=== PATIENT | female | born 1940 | race Caucasian/White ===

== ENCOUNTER 2017-04-17 21:21 | Inpatient (IN) ==
[2017-04-17] MEDS ORDERED: ASPIRIN 325 MG TABLET PO STA (22:02)
[2017-04-17] MEDS ORDERED: ONDANSETRON 4 MG/2 ML VIAL IV STA (22:02)
[2017-04-17] MEDS ORDERED: FUROSEMIDE 100 MG/10 ML VIAL IV STA (22:02)
[2017-04-17] MEDS ORDERED: methylPREDNISolone SOD SUC 125 MG/2 ML VIAL IV STA (22:02)
[2017-04-17] MEDS ORDERED: MORPHINE 2 MG/1 ML SYRINGE IV STA (22:02)
[2017-04-17] MEDS ORDERED: DILTIAZEM 50 MG/10 ML VIAL IV STA (22:02)
[2017-04-17] MEDS ORDERED: ALBUTEROL/IPRATROPIUM 3 ML NEB RESP TX STA (22:02)
--- NOTE | 2017-04-17 22:09 | Emergency Department Note ---
Ute Hunter Emily, am scribing for, and in the presence of, Jose Storey MD 22: 07. Raleigh Hunter Charles R, MD, personally performed the services described in this documentation, ascribed by Bárbara Unger in my presence, and it is both accurate and complete . Arrival - Arrival Chief Complaint: Shortness of Breath Stated Complaint: lightness in chest/bp/fast heart rate ED Nursing Triage Note: patient states she did not rest last night for having a feeling of fullness, shortness of breath and that her bp has been elevated. bp at triage 101/67 and has felt like her heart was running away. heart rate in triage 101, o2 sat 94% on ra Mode of Arrival: Ambulatory Limitations: No Limitations Source: Patient - History of Present Illness HPI Narrative: Pt is a 76 y/o female who came to ED with c/o LEDEZMA, SOB, and rapid heart palpitations with intermittent "funny feeling" that started yesterday. Pt is notes last night she couldn't sleep at all due to orthopnea and had to use several pillows to prop her up, along with use of inhaler that gave no relief. Pt is taking Coumadin for hx of blood clots; one in chest and other in leg. Pt saw Dr. Enamorado 3 weeks ago for Afib. Pt denies smoking and chest pain. Pt does use cane. Onset (ago): day(s) Consistency: constant, intermittent Severity: moderate Severity scale (1-10): 5 Quality: other (racing) Allergies/Adverse Reactions: Allergies Allergy/AdvReac Type Severity Reaction Status Date / Time No Known Allergies Allergy Verified 05/11/16 15:35 Home Medications: Home Medications Medication Instructions Recorded Confirmed Type Labetalol Tab [Trandate Tab] 200 mg PO BID 12/07/14 04/17/17 History Levothyroxine Tab [Synthroid Tab] 125 mcg PO DAILY@0700 12/07/14 04/17/17 History Lisinopril 20 mg PO DAILY 12/07/14 04/17/17 History Venlafaxine Xr [Effexor Xr] 37.5 tablet PO DAILY W/BREAKFAST 12/07/14 04/17/17 History Furosemide Tab [Lasix Tab] 40 mg PO DAILY 06/13/16 04/17/17 History HYDROcodone/ACETAMIN 10-325 [[place] 1 tablet PO Q6H PRN 06/13/16 04/17/17 History 10-325] Leflunomide [Arava] 20 mg PO BEDTIME 06/13/16 04/17/17 History Warfarin [Coumadin] 4 mg PO DAILY@1800 06/13/16 04/17/17 History Gabapentin [Neurontin] 800 mg PO TID 10/28/16 04/17/17 History Cholecalciferol [Vitamin D3] 400 unit PO DAILY tablet 11/02/16 04/17/17 Rx Fluticasone/Salmeterol 250-50 1 puff INH BID #1 11/02/16 04/17/17 Rx [Advair 250-50] Multivitamin (Ocuvite) [Ocuvite] 1 tablet PO BID #30 tablet 11/02/16 04/17/17 Rx Calcium Carbonate/Vitamin D3 1 each PO DAILY 01/06/17 04/17/17 History [Calcium 600-Vit D3 400 Tablet] Vit C/Vit E AC/Lut/Copper/Zinc 1 each PO DAILY 01/06/17 04/17/17 History [Preservision Lutein Softgel] Dicyclomine HCl 10 mg PO QID 04/17/17 04/17/17 History Omeprazole [Prilosec] 20 mg PO DAILY 04/17/17 04/17/17 History predniSONE [Prednisone] 5 mg PO DAILY 04/17/17 04/17/17 History Review of System - Review of System 12 point system: reviewed and no additional remarkable complaints except as stated - Review of System Constitutional: Absent: diaphoresis, fever, weakness Respiratory: Present: respiratory distress. Absent: cough Cardiovascular: Present: palpitations, dyspnea on exertion, orthopnea. Absent: chest pain, syncope Gastrointestinal: Absent: abdominal pain, nausea, vomiting Musculoskeletal: Absent: arm pain, back pain Skin: Absent: rash Neurological: Absent: headache, confusion Medical,Surgical,& Family Hx - Medical History Cardio: History of: Hypertension Psychological: History of: Depression Neurology: No history of: Seizures HEENT: History of: HEENT Problems (TMJ) Endocrine: History of: Thyroid Disorder Rheumatology: History of;: Fibromyalgia, Rheumatoid Arthritis Comment Only: Rheumatological Problems (rls) Respiratory: History of: COPD, Obstructive Sleep Apnea (does not use cpap), Pulmonary Embolism Gastrointestinal: History of: Diverticulitis/ Diverticulosis, GERD, Hemorrhoids , Polyps, GI Problems (dysphagia) Musculoskeletal: History of: Back/Neck Problems (spinal stenosis, bulging disk, back surgury-ruptured disk) Hematology: History of: Clotting Problems No history of: Blood Transfusion Reaction - Surgical History Cardiac Surgeries: Sugical HX of: Cardiac Catheterization HEENT Surgeries: Surgical HX of: Eye Surgery (CATARACTS), Thyroid Surgery, Tonsilectomy & Adenoidectomy Abdominal Surgeries: Surgical HX of: Appendectomy, Cholecystectomy, Colonoscopy , EGD Reproductive Surgeries: Surgical HX of;: Section (x3), Hysterectomy Orthopedic Surgeries: Surgical HX of;: Spinal Surgery (ruptured disk), Total Knee Replacement (bilat) - Family History Family History: Reports;: Family Diabetes, Family Heart Disease, Family Hypertension Denies;: Family Cancer - Social History Smoking Status: Never smoker Frequency of Alcohol Use: None Type of Drug Use: None Marital Status: Lives With:: Spouse Functional capacity: uses cane/walker Exam Vital Signs: Vital Signs Temperature 97.0 F L 04/17/17 21:30 Pulse Rate 93 H 04/17/17 22:31 Respiratory Rate 22 04/17/17 22:31 Blood Pressure 101/67 04/17/17 21:30 O2 Sat by Pulse Oximetry 98 04/17/17 22:31 - General General appearance: alert, anxious (mildly) - Head Head exam: Present: atraumatic, normocephalic - Eye Eye exam: Present: PERRL, EOMI - ENT ENT exam: Present: mucous membranes moist. Absent: mucous membranes dry - Neck Neck exam: Present: full ROM, other (JVD distention). Absent: tenderness - Chest Chest inspection: Present: symmetric chest wall rise. Absent: tenderness - Respiratory Respiratory exam: Present: rales (at bases), wheezes (expiratory in upper). Absent: accessory muscle use, respiratory distress - Cardiovascular Cardiovascular exam: Present: tachycardia, irregular rhythm - Abdominal Exam Abdominal exam: Present: soft, distention (mildly bloated). Absent: tenderness - Extremities Exam Extremities exam: Present: full ROM, pedal edema (+1). Absent: tenderness - Neurological Exam Neurological exam: Present: alert, oriented X3, CN II-XII intact. Absent: motor sensory deficit - Psychiatric Psychiatric exam: Present: normal affect - Skin Skin exam: Present: warm, dry Course - Reevaluation(s) Reevaluation #1: Patient feels much better after we converted over to normal sinus rhythm. Problem is she did not tell she took clonidine lisinopril and Lasix prior to arrival we gave her medications here which caused her blood pressure to bottom out. She did convert over to normal sinus rhythm successfully or shortness of breath is better she is given some gentle fluid hydration to bring her pressure up but will put her in the hospital overnight observation for blood pressure being so low systolically is less than 100 still after fluid hydration. Time: 23:28 - Consultations Consultation #1: Hospitalist will admit patient Time: 23:29 Results - Labs CBC & BMP: 04/17/17 22:14 04/17/17 22:14 Lab Results: I have reviewed the patients labs Labs: Laboratory Tests 04/17/17 04/17/17 04/17/17 22:02 22:14 22:14 WBC 12.7 H RBC 5.34 Hgb 15.1 Hct 45.7 MCV 85.6 L Plt Count 281 MPV 12.4 H Lymph % (Auto) 20.4 L [place] % (Auto) 13.0 H Neut # (Auto) 8.1 H [place] # (Auto) 1.6 H INR 1.7 PT Patient/Control Mix 18.0 D Urine Color Straw Urine Appearance Clear Urine pH 5.0 Ur Specific [place] 1.006 Urine Blood Negative Urine Nitrate Negative Urine Urobilinogen < 2.0 H Ur Squamous Epith Cells Occasional Hyaline Casts 12 Urine Mucus Occasional Laboratory Tests 04/17/17 22:14 BUN 31 H Creatinine 1.10 H BUN/Creatinine Ratio 28.00 H Troponin I 0.048 H Disposition Clinical Impression: Asthma, Hypotension, Atrial fibrillation with RVR, Paroxysmal atrial fibrillation with rapid ventricular response, Congestive heart failure, History of pulmonary embolus (PE), Chronic anticoagulation, Subtherapeutic anticoagulation Case discussed with: patient, patient's family Disposition: Still a Patient Condition: Stable Time of Disposition: 23:29
--- NOTE | 2017-04-17 22:13 | EKG Report ---
Stationary ECG Study [facility] ER Test Date: 04/17/2017 9:38:51 PM Pat Name: RASHAD COY Department: Room: Gender: F Medicare Contact Specialist: Aleena : 1940 Requested by: Jose Apple Order Number: [id number] Reading MD: EDWARD COTTER Intervals [place] Rate: 116 P: 999 AL: 0 QRS: 2 QRSD: 85 T: 41 QT: 325 QTc: 394 Interpretive Statements ATRIAL FIBRILLATION WITH RAPID VENTRICULAR RESPONSE Electronically Signed On 04-18-17 06:16:29 CDT by EDWARD COTTER [email or web address]
[2017-04-17 22:20] LABS: Apearance,Urine CLEAR (Clear); Bilirubin,Urine Negative (Negative); Blood, Urine Negative (Negative); Glucose,Urine (UA) Negative (Negative); Hyaline Casts,Urine 12 /LPF (0-3); Ketones,Urine Negative (Negative); Mucus,Urine Occasional /LPF (Occasional); Nitrite,Urine Negative (Negative); Protein,Urine Negative; Squamous Epithelial Cell,Urine Occasional /HPF (0-10); Urine Color Straw (Yellow); Urine Specific Gravity 1.006 (1.001-1.035); Urine Urobilinogen < 2.0 EU/DL (0.2-1.0)
[2017-04-17 22:22] LABS: Basophils # 0.1 10*3/uL (0.0-0.2); Basophils % 0.6 % (0.0-0.8); Eosinophils # 0.2 10*3/uL (0.0-0.87); Eosinophils % 1.7 % (0.00-10.9); Hematocrit 45.7 VOL% (35.7-47.0); Hemoglobin 15.1 GM/DL (12.0-16.0); Immature Granulocytes % 0.6 %; Immature Granulocytes Absolute 0.08 #; Lymphocytes # 2.6 10*3/uL (1.4-4.0); Lymphocytes % 20.4 % (21.3-54.2); Mean Corpuscular Hemoglobin 28 PG (27-34); Mean Corpuscular Volume 85.6 FL (87-102); Mean Platelet Volume 12.4 FL (9.6-12.0); Monocytes # 1.6 10*3/uL (0.11-0.8); Neutrophils # 8.1 10*3/uL (1.4-7.4); Neutrophils % 63.7 % (38.7-73.9); Platelet Count 281 T/CUMM (130-400); Red Blood Count 5.34 MC/CUMM (3.8-5.5); Red Cell Distribution Width 16.9 % (9.3-17.3); White Blood Count 12.7 T/CUMM (4-12)
[2017-04-17] MEDS ORDERED: MORPHINE 2 MG/1 ML SYRINGE ONE (22:26)
[2017-04-17] MEDS ORDERED: FUROSEMIDE 40 MG/4 ML VIAL ONE (22:26)
[2017-04-17] MEDS ORDERED: ONDANSETRON 4 MG/2 ML VIAL ONE (22:26)
[2017-04-17] MEDS ORDERED: FUROSEMIDE 20 MG/2 ML VIAL ONE (22:27)
[2017-04-17] MEDS ORDERED: ASPIRIN 325 MG TABLET ONE (22:27)
[2017-04-17] MEDS ORDERED: DILTIAZEM 50 MG/10 ML VIAL IV ONE (22:27)
[2017-04-17] MEDS ORDERED: methylPREDNISolone SOD SUC 125 MG/2 ML VIAL ONE (22:27)
[2017-04-17 22:31] LABS: INR 1.7
[2017-04-17 22:44] LABS: Alanine Aminotransferase 29 U/L (13-56); Albumin 3.7 G/DL (3.4-5.0); Alkaline Phosphatase 98 U/L (45-117); Aspartate Amino Transferase 19 U/L (0-37); Bilirubin,Total < 0.39 MG/DL (0.2-1.0); Blood Urea Nitrogen 31 MG/DL (7-18); Calcium 8.5 MG/DL (8.5-10.1); Glucose 100 MG/DL (74-106); Magnesium 2.2 MG/DL (1.8-2.4); Osmolality,Calculated 289.1 MOS/KG (273-304); Potassium 3.9 MMOL/L (3.5-5.1); Sodium 142 MMOL/L (136-145); Total Protein 6.9 G/DL (6.4-8.3)
[2017-04-17 22:45] LABS: Troponin I Only 0.048 NG/ML (0.00-0.045)
[2017-04-17] MEDS ORDERED: LACTATED RINGERS 500 ML IV ONE (23:12)
[2017-04-17] MEDS ORDERED: ENOXAPARIN 100 MG/ML SYRINGE SUBCUT STA (23:16)
[2017-04-17] MEDS ORDERED: ONDANSETRON 4 MG/2 ML VIAL IV PRN (23:27)
[2017-04-17] MEDS ORDERED: ACETAMINOPHEN 325 MG TABLET PO PRN (23:27)
[2017-04-17] MEDS ORDERED: ZALEPLON 5 MG CAPSULE PO PRN (23:27)
[2017-04-17] MEDS ORDERED: WARFARIN 1 MG TABLET PO ONE (23:31)
--- NOTE | 2017-04-17 23:58 | Hospitalist History & Physical ---
Assessment and Plan (1) Acute pulmonary edema Status: Acute Assessment and plan: Treated with IV Lasix. She has improved after treatment in the emergency department. We will continue oral Lasix this was likely secondary to her A. fib with RVR. Current Visit: Yes (2) Hypotension Status: Acute Assessment and plan: Combination of Lasix and Cardizem as well as home blood pressure medications. She is receiving gentle hydration in the emergency department. Blood pressure has improved. Current Visit: Yes Qualifiers: Hypotension type: hypotension due to drug Qualified Code(s): I95.2 - Hypotension due to drugs (3) Atrial fibrillation with RVR Status: Acute Assessment and plan: Thought to be paroxysmal in nature. Patient is anticoagulated secondary to history of DVT and PE. INR subtherapeutic at 1.7. Will bridge with Lovenox and increase Coumadin. Currently rate controlled and converted to sinus after Cardizem infusion. Current Visit: Yes (4) Chronic anticoagulation Status: Acute Assessment and plan: On Coumadin. Subtherapeutic INR 1.7. Patient had stopped Coumadin for spine injection by Dr. Young. This was completed over 2 weeks ago. Will give an additional 2 mg of Coumadin tonight and bridge with Lovenox. Current Visit: Yes (5) Subtherapeutic anticoagulation Status: Acute Current Visit: Yes History of Present Illness Chief complaint: Shortness of breath and palpitations History of present illness: Ms. Zamarripa is a 76 year old female presented to ED with c/o LEDEZMA, SOB, and rapid heart palpitations with intermittent "funny feeling" that started yesterday. She reports that last night she couldn't sleep at all due to orthopnea and had to use several pillows to prop her up, along with use of inhaler that gave no relief. The patient is taking Coumadin for hx of blood clots; one in chest and other in leg. Pt saw Dr. Enamorado 3 weeks ago for Afib. She has paroxysmal atrial fibrillation that appears to have gone into rapid ventricular response yesterday causing her significant shortness of breath and acute congestive heart failure. She was treated in the emergency department with Lasix and Cardizem has converted to sinus rhythm. She had a drop her blood pressure after conversion and with diuresis. She feels much better at the time of my evaluation and is no longer short of breath. Home Medications Medication Instructions Recorded Confirmed Type Labetalol Tab [Trandate Tab] 200 mg PO BID 12/07/14 04/17/17 History Levothyroxine Tab [Synthroid Tab] 125 mcg PO DAILY@0700 12/07/14 04/17/17 History Lisinopril 20 mg PO DAILY 12/07/14 04/17/17 History Venlafaxine Xr [Effexor Xr] 37.5 tablet PO DAILY W/BREAKFAST 12/07/14 04/17/17 History Furosemide Tab [Lasix Tab] 40 mg PO DAILY 06/13/16 04/17/17 History HYDROcodone/ACETAMIN 10-325 [[place] 1 tablet PO Q6H PRN 06/13/16 04/17/17 History 10-325] Leflunomide [Arava] 20 mg PO BEDTIME 06/13/16 04/17/17 History Warfarin [Coumadin] 4 mg PO DAILY@1800 06/13/16 04/17/17 History Gabapentin [Neurontin] 800 mg PO TID 10/28/16 04/17/17 History Cholecalciferol [Vitamin D3] 400 unit PO DAILY tablet 11/02/16 04/17/17 Rx Fluticasone/Salmeterol 250-50 1 puff INH BID #1 11/02/16 04/17/17 Rx [Advair 250-50] Multivitamin (Ocuvite) [Ocuvite] 1 tablet PO BID #30 tablet 11/02/16 04/17/17 Rx Calcium Carbonate/Vitamin D3 1 each PO DAILY 01/06/17 04/17/17 History [Calcium 600-Vit D3 400 Tablet] Vit C/Vit E AC/Lut/Copper/Zinc 1 each PO DAILY 01/06/17 04/17/17 History [Preservision Lutein Softgel] Dicyclomine HCl 10 mg PO QID 04/17/17 04/17/17 History Omeprazole [Prilosec] 20 mg PO DAILY 04/17/17 04/17/17 History predniSONE [Prednisone] 5 mg PO DAILY 04/17/17 04/17/17 History Allergies Allergy/AdvReac Type Severity Reaction Status Date / Time No Known Allergies Allergy Verified 05/11/16 15:35 Medical,Surgical,& Family Hx - Medical History Cardio: History of: Hypertension Psychological: History of: Depression Neurology: No history of: Seizures HEENT: History of: HEENT Problems (TMJ) Endocrine: History of: Thyroid Disorder Rheumatology: History of;: Fibromyalgia, Rheumatoid Arthritis Comment Only: Rheumatological Problems (rls) Respiratory: History of: COPD, Obstructive Sleep Apnea (does not use cpap), Pulmonary Embolism Gastrointestinal: History of: Diverticulitis/ Diverticulosis, GERD, Hemorrhoids , Polyps, GI Problems (dysphagia) Musculoskeletal: History of: Back/Neck Problems (spinal stenosis, bulging disk, back surgury-ruptured disk) Hematology: History of: Clotting Problems No history of: Blood Transfusion Reaction - Surgical History Cardiac Surgeries: Sugical HX of: Cardiac Catheterization HEENT Surgeries: Surgical HX of: Eye Surgery (CATARACTS), Thyroid Surgery, Tonsilectomy & Adenoidectomy Abdominal Surgeries: Surgical HX of: Appendectomy, Cholecystectomy, Colonoscopy , EGD Reproductive Surgeries: Surgical HX of;: Section (x3), Hysterectomy Orthopedic Surgeries: Surgical HX of;: Spinal Surgery (ruptured disk), Total Knee Replacement (bilat) - Family History Family History: Reports;: Family Diabetes, Family Heart Disease, Family Hypertension Denies;: Family Cancer - Social History Smoking Status: Never smoker Frequency of Alcohol Use: None Type of Drug Use: None Marital Status: Lives With:: Spouse Functional capacity: uses cane/walker 12 point system: reviewed and no additional remarkable complaints except as stated - Cardiovascular Cardiovascular: Present: as per HPI, orthopnea, palpitations, PND Exam - Constitutional Vitals: Period Temp Pulse Resp BP Sys/Funes Pulse Ox Last 24 Hr 97.0 F-97.0 F 93-101 20-22 101-101/ 93-98 Exam: Constitutional System: No distress. No tremulousness. Head: Normocephalic, atraumatic. Ears, Nose and Throat System: No pain or tenderness. No epistaxis or discharge Eyes System: Pupils equal, round, and reactive. Extraocular muscles intact. Neck: Supple, without adenopathy, No jugular venous distention. No thyromegaly, neck mass, or prior surgery apparent. Respiratory System: Chest clear to auscultation. Cardiovascular System: Heart with regular rate and rhythm. No murmur. GI System: Abdomen soft, nontender. Normo active bowel sounds present. Musculoskeletal System: limbs with no pedal edema. Full distal pulses. Neurological System: No discernable sensory deficit. No aphasia Psychiatric System: Conversation is rational Results - Labs CBC & BMP: 04/17/17 22:14 04/17/17 22:14 Lab Results: I have reviewed the past 24 hour labs - Diagnostic Findings Procedure: Chest x-ray: report reviewed by me, image reviewed by me
[2017-04-18 05:17] LABS: INR 1.7
[2017-04-18 05:34] LABS: Calcium 8.7 MG/DL (8.5-10.1); Magnesium 2.4 MG/DL (1.8-2.4); Osmolality,Calculated 292.1 MOS/KG (273-304); Potassium 5.3 MMOL/L (3.5-5.1); Thyroid Stimulating Hormone 0.481 uIU/ml (0.358-3.74)
--- NOTE | 2017-04-18 06:50 | XRay Report ---
XR chest 1V portable Indication: Shortness of breath Comparison: 28 October 2016 Findings: The heart and mediastinum are normal in size and configuration. The pulmonary vascularity is normal in caliber. No lung infiltrates, effusions, pneumothorax or other abnormality is demonstrated. Impression: No acute cardiopulmonary disease. PROCEDURE INTERPRETED AT [facility] DEPARTMENT OF RADIOLOGY Final Report Signed by: Dr. Jacob Causey
--- NOTE | 2017-04-18 07:34 | EKG Report ---
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
[2017-04-18 08:29] LABS: Basophils % 0.3 % (0.0-0.8); Hematocrit 44.1 VOL% (35.7-47.0); Hemoglobin 14.6 GM/DL (12.0-16.0); Immature Granulocytes % 0.6 %; Immature Granulocytes Absolute 0.06 #; Lymphocytes # 0.8 10*3/uL (1.4-4.0); Lymphocytes % 8.5 % (21.3-54.2); Mean Corpuscular HGB Conc 33.1 GM/DL (32-36); Mean Corpuscular Hemoglobin 28 PG (27-34); Mean Corpuscular Volume 85.5 FL (87-102); Mean Platelet Volume 12.2 FL (9.6-12.0); Monocytes # 0.2 10*3/uL (0.11-0.8); Monocytes % 1.9 % (1.7-12.7); Neutrophils # 8.4 10*3/uL (1.4-7.4); Neutrophils % 88.7 % (38.7-73.9); Platelet Count 246 T/CUMM (130-400); Red Blood Count 5.16 MC/CUMM (3.8-5.5); Red Cell Distribution Width 16.4 % (9.3-17.3); White Blood Count 9.4 T/CUMM (4-12)
[2017-04-18] MEDS ORDERED: NON-FORMULARY MEDICATION (Vit C/Vit E Ac/Lut/Copper/Zinc [Preservision Lutein Softgel] 1 E PO SCH (09:00)
--- NOTE | 2017-04-18 09:22 | Hospitalist Progress Note ---
<James Roth - Last Filed: 04/18/17 09:20> Assessment and Plan (1) Acute pulmonary edema Status: Acute Assessment and plan: BNP at the time of presentation 5.0, the patient was aggressively diuresed. BNP is noted at 341. The patient has reported no additional episodes of shortness of breath. Will recheck chest x-ray in a.m. Current Visit: Yes (2) Atrial fibrillation with RVR Status: Acute Assessment and plan: Rate is controlled. We will consult cardiology to evaluate. The patient is managed by Dr. Enamorado in the outpatient setting. Current Visit: Yes (3) Chronic anticoagulation Status: Acute Assessment and plan: INR was noted at 1.7 at the time of ED presentation. The patient was given a one-time dose of Coumadin in the ED. The INR has remained unchanged. The patient's Coumadin had been placed on hold at the the patient underwent a spinal procedure 2 weeks ago. We have consulted cardiology to evaluate and assist. Current Visit: Yes Hospitalist: Subjective Interval history: The patient has been seen and examined. The patient's chart has been reviewed. No significant overnight events reported. We will consult cardiology to evaluate due to the patient's long anticoagulation history and atrial fibrillation. INR is noted at 1.7 today. Patient was given supplemental Coumadin in the ED. At the time of ED presentation, the patient's INR was noted at 1.7. There has been no significant changes in the patient's coagulation status. Exam - Constitutional Vitals: Period Temp Pulse Resp BP Sys/Funes Pulse Ox Last 24 Hr 97.0 F-97.8 F 52-101 18-26 101-150/52-95 93-98 General appearance: normal weight, no acute distress - Head Head exam: Present: normal inspection, normocephalic - Eye Eye exam: Present: EOMI. Absent: conjunctival injection Pupils: Present: CHOLO, normal accommodation - ENT ENT exam: Present: normal exam, normal external ear exam, normal oropharynx - Neck Neck exam: Present: normal inspection. Absent: lymphadenopathy, meningismus, thyromegaly - Respiratory Respiratory exam: Present: clear to auscultation bilaterally. Absent: rales, rhonchi, stridor, wheezes - Cardiovascular Cardiovascular exam: Present: regular rate and rhythm. Absent: carotid bruit, diastolic murmur, gallop, JVD, rubs, systolic murmur - GI/Abdominal GI/Abdominal exam: Present: normal bowel sounds, soft - Extremities Exam Extremities exam: Present: normal inspection, normal capillary refill, full ROM - Back Exam Back exam: Present: normal inspection - Neurological Exam Neurological exam: Present: alert, CN II-XII intact - Psychiatric Psychiatric exam: Present: normal affect, normal mood - Skin Skin exam: Present: normal color Results - Labs CBC & BMP: 04/18/17 08:19 04/18/17 03:50 Lab Results: I have reviewed the past 24 hour labs Specialty Discharge - Follow Up or Referrals <Philip Trent - Last Filed: 04/18/17 10:21> Hospitalist: Subjective Interval history: Patient has been seen and examined. Laboratory test results have been reviewed. Cardiology has been consulted. I will restart her warfarin since she is 2 weeks postoperative. And requires anticoagulation for her atrial fibrillation. Exam - Constitutional Vitals: Period Temp Pulse Resp BP Sys/Funes Pulse Ox Last 24 Hr 97.0 F-97.8 F 52-101 18-26 101-150/52-95 93-98 Results - Labs CBC & BMP: 04/18/17 08:19 04/18/17 08:19
[2017-04-18 09:39] LABS: Albumin 3.6 G/DL (3.4-5.0); Bilirubin,Total 0.5 MG/DL (0.2-1.0); Calcium 8.1 MG/DL (8.5-10.1); Magnesium 2.2 MG/DL (1.8-2.4); Osmolality,Calculated 289.4 MOS/KG (273-304); Phosphorous 5.5 MG/DL (2.5-4.9); Potassium 5.1 MMOL/L (3.5-5.1)
[2017-04-18] MEDS: LEVOTHYROXINE 125 MCG TABLET PO SCH (10:16)
[2017-04-18] MEDS: VENLAFAXINE XR 37.5 MG CAPSULE PO SCH (10:16)
[2017-04-18] MEDS: FLUTICASONE/SALMETEROL 250-50 DISKUS 14 DOSE INH SCH ×2 (10:16→21:18)
[2017-04-18] MEDS: DICYCLOMINE 10 MG CAPSULE PO SCH ×4 (10:16→21:22)
[2017-04-18] MEDS: CALCIUM (CARBONATE)/VITAMIN D 600 MG-400 UNIT TABLET PO SCH (10:16)
[2017-04-18] MEDS: FUROSEMIDE 40 MG TABLET PO SCH (10:17)
[2017-04-18] MEDS: MULTIVITAMIN (OCUVITE) TABLET PO SCH ×2 (10:17→21:22)
[2017-04-18] MEDS: predniSONE 5 MG TABLET PO SCH (10:17)
[2017-04-18] MEDS: GABAPENTIN 400 MG CAPSULE PO SCH ×3 (10:17→21:22)
[2017-04-18] MEDS: LABETALOL 200 MG TABLET PO SCH ×2 (10:18→21:22)
[2017-04-18] MEDS: PANTOPRAZOLE 40 MG TABLET PO SCH (10:18)
[2017-04-18] MEDS: LISINOPRIL 20 MG TABLET PO SCH (10:18)
[2017-04-18] MEDS: ENOXAPARIN 100 MG/ML SYRINGE SUBCUT SCH ×2 (10:18→21:22)
[2017-04-18] MEDS: CHOLECALCIFEROL 400 UNIT TABLET PO SCH (10:18)
--- NOTE | 2017-04-18 10:43 | Cardiology Consult Note ---
<Mary Croft E - Last Filed: 04/18/17 10:58> Assessment and Plan - Time spent with patient Time spent with patient: Greater than 30 minutes (1) Acute diastolic CHF (congestive heart failure), NYHA class 3 Status: Acute Assessment and plan: SEE PLAN OF CARE LISTED BELOW Current Visit: Yes (2) Subtherapeutic international normalized ratio (INR) Status: Acute Assessment and plan: SEE PLAN OF CARE LISTED BELOW Current Visit: Yes (3) Sleep apnea Status: Chronic Assessment and plan: SEE PLAN OF CARE LISTED BELOW Current Visit: Yes (4) Atrial fibrillation with RVR Status: Resolved Assessment and plan: SEE PLAN OF CARE LISTED BELOW Current Visit: Yes (5) Chronic anticoagulation Status: Chronic Assessment and plan: SEE PLAN OF CARE LISTED BELOW Current Visit: Yes (6) History of pulmonary embolism Status: Chronic Assessment and plan: SEE PLAN OF CARE LISTED BELOW Current Visit: No (7) Hypertension Status: Chronic Assessment and plan: SEE PLAN OF CARE LISTED BELOW Current Visit: No (8) PAF (paroxysmal atrial fibrillation) Status: Acute Assessment and plan: SEE PLAN OF CARE LISTED BELOW Current Visit: Yes History of Present Illness - Data of Consult Patient: known to practice within the last 3 years Consult date: 04/18/17 Requesting Physician: Philip Trent Primary care physician: Juan Tang - Consult Narrative Reason for consult: atrial fib with RVR 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 JUAN TANG Ms. Zamarripa, 76WF, with risk factor significant for: age, hypertension, obesity. 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 INR managed by Dr. Tang. Patient was hospitalized in September 2016 and diagnosed with paroxysmal atrial fibrillation at that time. The episode was brief, nonsustained. Patient wore a 48 hour Holter monitor March 17, 2017 which revealed one episode of atrial tachycardia but no atrial fibrillation. Her atrial tachycardia was only for 5 days. December 04, 2016 echo: EF 65%, grade 1 diastolic dysfunction, moderately increased left atrial diameter, PAP 55 mmHg assuming RAP 3 mmHg. Presented to the ED of [facility] April 17, 2017 with complaints of shortness of breath, palpitations for several weeks, worsening for the past several days. She began to express 2-3 pillow orthopnea, mild lower extremity edema approximately 2 days prior to admission. In the emergency department she was found to be in atrial fibrillation with rapid ventricular response, acute CHF. She was treated with IV Diltiazem and Lasix. She experienced mild hypotension after conversion back to normal sinus rhythm and diuresis. INR subtherapeutic 1.7. She has remained in normal sinus rhythm through the remainder of the hospital stay. She has been bridged with therapeutic doses of Lovenox, Coumadin continues. (Of note she had held her Coumadin recently for a procedure ). Patient also had been given a steroid injection approximately 1 week ago for back pain. Around this time, she believes she began to feel worse. Patient does have untreated sleep apnea. She is willing however to be reevaluated for a different sleep device. History of claustrophobia in tells me that she was unable to wear the device because she felt panicked while wearing. Will consult Dr. López for other options. Untreated sleep apnea by be contributing to her recurrent atrial fibrillation. Continue Coumadin. She may be a candidate for a rhythm controlling agent such as Amiodarone is we have now established she is having actual paroxysms of atrial fibrillation. Echocardiogram this morning. Suspect her acute CHF is related to diastolic dysfunction. Continue with IV diuresis, strict I&O and daily weights. Patient is concerned she may have COPD as this is been mentioned to her recently in the past. Reports that she did have PFTs done at Dr. Tang's office in the past 3- 6 months. I will ask them to contact his office to obtain this report and scanned into [employer]. TSH, monitor electrolytes daily, continue monitoring of telemetry. Will further discuss with Dr. Jorge and await additional recommendations. ASSESSMENT/PLAN: 1. ATRIAL FIBRILLATION WITH RVR -converted back to normal sinus rhythm quickly. She may now be a candidate for rhythm controlling agent. Continue Coumadin for stroke prevention. OSCAR VASC SCORE 5. 2. ACUTE CHF -traditionally, patient has had a normal EF. Suspect that her acute CHF is from diastolic dysfunction. Initial presentation NYHA Class III, now Class II. 3. HYPERTENSION - adequately controlled 4. CHRONIC ANTI-COAGULATION - continue warfarin. 5. 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 6. SUBTHERAPEUTIC INR - INR 1.7. Continue to monitor this daily. 7. UNTREATED SLEEP APNEA - consult sleep medicine CC: Philip Trent - Home Medications and Allergies Home Medications: Home Medications Medication Instructions Recorded Confirmed Type Labetalol Tab [Trandate Tab] 200 mg PO BID 12/07/14 04/17/17 History Levothyroxine Tab [Synthroid Tab] 125 mcg PO DAILY@0700 12/07/14 04/18/17 History Lisinopril 20 mg PO DAILY 12/07/14 04/18/17 History Venlafaxine Xr [Effexor Xr] 37.5 tablet PO DAILY W/BREAKFAST 12/07/14 04/18/17 History Furosemide Tab [Lasix Tab] 40 mg PO DAILY 06/13/16 04/17/17 History HYDROcodone/ACETAMIN 10-325 [Radnor 1 tablet PO Q6H PRN 06/13/16 04/18/17 History 10-325] Leflunomide [Arava] 20 mg PO BEDTIME 06/13/16 04/18/17 History Warfarin [Coumadin] 5 mg PO DAILY@1800 06/13/16 04/18/17 History Gabapentin [Neurontin] 800 mg PO TID 10/28/16 04/18/17 History Cholecalciferol [Vitamin D3] 400 unit PO DAILY tablet 11/02/16 04/18/17 Rx Fluticasone/Salmeterol 250-50 1 puff INH BID #1 11/02/16 04/17/17 Rx [Advair 250-50] Multivitamin (Ocuvite) [Ocuvite] 1 tablet PO BID #30 tablet 11/02/16 04/18/17 Rx Calcium Carbonate/Vitamin D3 1 each PO DAILY 01/06/17 04/18/17 History [Calcium 600-Vit D3 400 Tablet] Vit C/Vit E AC/Lut/Copper/Zinc 1 each PO DAILY 01/06/17 04/17/17 History [Preservision Lutein Softgel] Dicyclomine HCl 10 mg PO QID 04/17/17 04/18/17 History Omeprazole [Prilosec] 20 mg PO DAILY 04/17/17 04/18/17 History predniSONE [Prednisone] 5 mg PO DAILY 04/17/17 04/18/17 History Allergies/Adverse Reactions: Allergies Allergy/AdvReac Type Severity Reaction Status Date / Time No Known Allergies Allergy Verified 05/11/16 15:35 Review of systems: REVIEW OF SYSTEMS: - Constitutional Constitutional: Acknowledges fatigue. Absent: syncope, anorexia, night sweats - EENT Eyes: Absent: blurry vision, loss of vision, diplopia Ears: Absent: decreased hearing, ear pain, ear discharge - Cardiovascular Cardiovascular: Denies: chest pain with movement, palpation. Mild lower extremity edema. Palpitations starting this evening. Absent: chest pain with deep breath, claudication - Respiratory Respiratory: Present: 2-3 pillow orthopnea, dyspnea on exertion, dry cough. Absent: wheezing, hemoptysis, change in phlegm color - Gastrointestinal Gastrointestinal: Denies: constipation. Absent: abdominal pain, hematemesis, hematochezia, melena, change in bowel habits, nausea - Genitourinary Genitourinary: Absent: difficulty urinating, dysuria, urinary hesitancy, flank pain - Musculoskeletal Musculoskeletal: Present: Chronic back pain, knee pain absent. Occasional joint pain. Denies muscle cramps, muscle weakness - Neurological Neurological: Present: normal gait without frequent falls. Recent dizziness with the palpitations. Resolved. Absent: Hemiparesis - Psychiatric Psychiatric: Claustrophobia absent: anxiety, depression, difficulty concentrating - Endocrine Endocrine: Absent: cold intolerance, heat intolerance, polyuria, polyphagia, polydipsia - Hematologic/Lymphatic Hematologic/Lymphatic: Present: easy bruising. Absent: easy bleeding -Integumentary Integumentary: Absent: lesions, rashes, skin breakdown Medical,Surgical,& Family Hx - Medical History Cardio: History of: Hypertension No history of: CAD, DE Psychological: History of: Depression Neurology: No history of: Seizures HEENT: History of: HEENT Problems (TMJ) Endocrine: History of: Thyroid Disorder Rheumatology: History of;: Fibromyalgia, Rheumatoid Arthritis Comment Only: Rheumatological Problems (rls) Respiratory: History of: COPD, Obstructive Sleep Apnea (does not use cpap), Pulmonary Embolism Gastrointestinal: History of: Diverticulitis/ Diverticulosis, GERD, Hemorrhoids , Polyps, GI Problems (dysphagia) Musculoskeletal: History of: Back/Neck Problems (spinal stenosis, bulging disk, back surgury-ruptured disk) Hematology: History of: Clotting Problems No history of: Blood Transfusion Reaction - Surgical History Cardiac Surgeries: Sugical HX of: Cardiac Catheterization Neurologic Surgeries: Patient denies: Neurologic Surgery HEENT Surgeries: Surgical HX of: Eye Surgery (CATARACTS), Thyroid Surgery, Tonsilectomy & Adenoidectomy Abdominal Surgeries: Surgical HX of: Appendectomy, Cholecystectomy, Colonoscopy , EGD Reproductive Surgeries: Surgical HX of;: Section (x3), Hysterectomy Orthopedic Surgeries: Surgical HX of;: Spinal Surgery (ruptured disk), Total Knee Replacement (bilat) - Family History Family History: Reports;: Family Diabetes, Family Heart Disease, Family Hypertension Denies;: Family Cancer - Social History Smoking Status: Never smoker Have you smoked in the last 12 months: No Frequency of Alcohol Use: None Type of Drug Use: None Functional capacity: independent ambulation Physical Examination Vital Signs Temp Pulse Resp BP Pulse Ox 97.0 F L 101 H 20 101/67 94 L 04/17/17 21:30 04/17/17 21:30 04/17/17 21:30 04/17/17 21:30 04/17/17 21:30 Exam: General: [Appears well with no apparent distress.] [Pleasant and cooperative. ] [Appears comfortable.] HEENT: [PERRL, normocephalic, atraumatic. Mucous membranes moist. No jaundice noted. Conjunctiva moist and clear, sclerae anicteric] Neck: Unable to assess for JVD due to habitus. No thyromegaly or lymphadenopathy noted. No carotid bruit appreciated Cardiac: [Regular rate and rhythm.] [Soft II/ systolic ejection murmur heard best to bilateral upper sternal borders. ] Lungs: [Clear to auscultation without accessory muscle use to assist the respiratory pattern.] Not requiring oxygen Abdomen: Soft, bowel sounds normoactive. Nontender and nondistended. No abdominal bruit or thrill noted. No masses noted. Musculoskeletal: No fluid collection. Decreased range of motion is noted. Extremities: No clubbing, cyanosis noted. [Trace bilateral lower extremity edema noted.] Upper extremity pulses 2+. Lower extremity pulses 2+. Capillary refill less than 3 seconds. Skin: No unusual lesions or rashes. No skin breakdown appreciated. Neuro: Awake, alert and oriented 3. Moves all extremities well without hemiparesis or paralysis. No essential tremor is appreciated. Result/EKG - Labs CBC & BMP: 04/18/17 08:19 04/18/17 08:19 Lab Results: I have reviewed the past 24 hour labs Labs: Laboratory Results - last 24 hr 04/17/17 04/17/17 04/17/17 22:02 22:14 22:14 WBC 12.7 H RBC 5.34 Hgb 15.1 Hct 45.7 MCV 85.6 L MCH 28 MCHC 33.0 RDW 16.9 Plt Count 281 MPV 12.4 H Neut % (Auto) 63.7 Lymph % (Auto) 20.4 L Archer % (Auto) 13.0 H Eos % (Auto) 1.7 Baso % (Auto) 0.6 Neut # (Auto) 8.1 H Lymph # (Auto) 2.6 Archer # (Auto) 1.6 H Eos # (Auto) 0.2 Baso # (Auto) 0.1 Immature Gran % 0.6 Nucleated RBC % 0.0 Immature Gran # 0.08 Nucleated RBCs # 0.00 Immature Plt Fraction 0.0 INR 1.7 PT Patient/Control Mix 18.0 D Sodium Potassium Chloride Carbon Dioxide Anion Gap BUN Creatinine GFR Calculation BUN/Creatinine Ratio Glucose Calculated Osmolality Calcium Phosphorus Magnesium Total Bilirubin AST ALT Alkaline Phosphatase Total Creatine Kinase CK-MB (CK-2) Troponin I B-Natriuretic Peptide Total Protein Albumin Globulin Albumin/Globulin Ratio TSH 3rd Generation Urine Color Straw Urine Appearance Clear Urine pH 5.0 Ur Specific Franklin 1.006 Urine Protein Negative Urine Glucose (UA) Negative Urine Ketones Negative Urine Blood Negative Urine Nitrate Negative Urine Bilirubin Negative Urine Urobilinogen < 2.0 H Urine Leukocytes Negative Ur Squamous Epith Cells Occasional Hyaline Casts 12 Urine Mucus Occasional Ur Culture Indicated? Not indicated 04/17/17 04/17/17 04/18/17 22:14 22:14 03:50 WBC RBC Hgb Hct MCV MCH MCHC RDW Plt Count MPV Neut % (Auto) Lymph % (Auto) Archer % (Auto) Eos % (Auto) Baso % (Auto) Neut # (Auto) Lymph # (Auto) Archer # (Auto) Eos # (Auto) Baso # (Auto) Immature Gran % Nucleated RBC % Immature Gran # Nucleated RBCs # Immature Plt Fraction INR PT Patient/Control Mix Sodium 142 142 Potassium 3.9 5.3 H Chloride 106 102 Carbon Dioxide 28 34 H Anion Gap 11.9 11.3 BUN 31 H 32 H Creatinine 1.10 H 1.20 H GFR Calculation 54 49 BUN/Creatinine Ratio 28.00 H 26.00 H Glucose 100 155 H Calculated Osmolality 289.1 292.1 Calcium 8.5 8.7 Phosphorus Magnesium 2.2 2.4 Total Bilirubin < 0.39 AST 19 ALT 29 Alkaline Phosphatase 98 Total Creatine Kinase 124 CK-MB (CK-2) 3.3 Troponin I 0.048 H B-Natriuretic Peptide 501 H Total Protein 6.9 Albumin 3.7 Globulin 3.2 Albumin/Globulin Ratio 1.1 TSH 3rd Generation 0.481 Urine Color Urine Appearance Urine pH Ur Specific Franklin Urine Protein Urine Glucose (UA) Urine Ketones Urine Blood Urine Nitrate Urine Bilirubin Urine Urobilinogen Urine Leukocytes Ur Squamous Epith Cells Hyaline Casts Urine Mucus Ur Culture Indicated? 04/18/17 04/18/17 04/18/17 03:50 03:50 08:19 WBC 9.4 RBC 5.16 Hgb 14.6 Hct 44.1 MCV 85.5 L MCH 28 MCHC 33.1 RDW 16.4 Plt Count 246 MPV 12.2 H Neut % (Auto) 88.7 H Lymph % (Auto) 8.5 L Archer % (Auto) 1.9 Eos % (Auto) 0.0 Baso % (Auto) 0.3 Neut # (Auto) 8.4 H Lymph # (Auto) 0.8 L Archer # (Auto) 0.2 Eos # (Auto) 0.0 Baso # (Auto) 0.0 Immature Gran % 0.6 Nucleated RBC % 0.0 Immature Gran # 0.06 Nucleated RBCs # 0.00 Immature Plt Fraction 0.0 INR 1.7 PT Patient/Control Mix 19.0 Sodium Potassium Chloride Carbon Dioxide Anion Gap BUN Creatinine GFR Calculation BUN/Creatinine Ratio Glucose Calculated Osmolality Calcium Phosphorus Magnesium Total Bilirubin AST ALT Alkaline Phosphatase Total Creatine Kinase CK-MB (CK-2) Troponin I B-Natriuretic Peptide 341 H Total Protein Albumin Globulin Albumin/Globulin Ratio TSH 3rd Generation Urine Color Urine Appearance Urine pH Ur Specific Franklin Urine Protein Urine Glucose (UA) Urine Ketones Urine Blood Urine Nitrate Urine Bilirubin Urine Urobilinogen Urine Leukocytes Ur Squamous Epith Cells Hyaline Casts Urine Mucus Ur Culture Indicated? 04/18/17 08:19 WBC RBC Hgb Hct MCV MCH MCHC RDW Plt Count MPV Neut % (Auto) Lymph % (Auto) Archer % (Auto) Eos % (Auto) Baso % (Auto) Neut # (Auto) Lymph # (Auto) Archer # (Auto) Eos # (Auto) Baso # (Auto) Immature Gran % Nucleated RBC % Immature Gran # Nucleated RBCs # Immature Plt Fraction INR PT Patient/Control Mix Sodium 140 Potassium 5.1 Chloride 102 Carbon Dioxide 31 Anion Gap 12.1 BUN 34 H Creatinine 1.30 H GFR Calculation 44 BUN/Creatinine Ratio 26.00 H Glucose 145 H Calculated Osmolality 289.4 Calcium 8.1 L Phosphorus 5.5 H Magnesium 2.2 Total Bilirubin 0.50 AST 18 ALT 29 Alkaline Phosphatase 86 Total Creatine Kinase CK-MB (CK-2) Troponin I B-Natriuretic Peptide Total Protein 7.0 Albumin 3.6 Globulin 3.4 Albumin/Globulin Ratio 1.0 L TSH 3rd Generation Urine Color Urine Appearance Urine pH Ur Specific Franklin Urine Protein Urine Glucose (UA) Urine Ketones Urine Blood Urine Nitrate Urine Bilirubin Urine Urobilinogen Urine Leukocytes Ur Squamous Epith Cells Hyaline Casts Urine Mucus Ur Culture Indicated? - Diagnostic Findings Procedure: Chest x-ray: report reviewed by me - EKG EKG results: interpreted by me EKG shows: sinus rhythm, atrial fibrillation Specialty Discharge - Follow Up or Referrals <Km Jorge - Last Filed: 04/18/17 17:06> History of Present Illness - Consult Narrative History of present illness: Ms. Zamarripa is a 76 year old female who I personally interviewed and examined and chart reviewed. I discussed his case with Mary Croft NP and agree with her evaluation and assessment. The patient I think at this point will need to go ahead and start on low-dose flecainide. She does not have any contraindications to that. Her ejection fraction is been previously normal. We will follow-up on her echocardiogram. I did discuss with her and her our plans for the flecainide. She voices understanding and agrees. We will start that today and she does well she can feasibly go home tomorrow. We would like to see her back next week or 2. CC: Philip Trent Physical Examination Vital Signs Temp Pulse Resp BP Pulse Ox 97.0 F L 101 H 20 101/67 94 L 04/17/17 21:30 04/17/17 21:30 04/17/17 21:30 04/17/17 21:30 04/17/17 21:30 Result/EKG - Labs CBC & BMP: 04/18/17 08:19 04/18/17 08:19 Labs: Laboratory Results - last 24 hr 04/17/17 04/17/17 04/17/17 22:02 22:14 22:14 WBC 12.7 H RBC 5.34 Hgb 15.1 Hct 45.7 MCV 85.6 L MCH 28 MCHC 33.0 RDW 16.9 Plt Count 281 MPV 12.4 H Neut % (Auto) 63.7 Lymph % (Auto) 20.4 L Archer % (Auto) 13.0 H Eos % (Auto) 1.7 Baso % (Auto) 0.6 Neut # (Auto) 8.1 H Lymph # (Auto) 2.6 Archer # (Auto) 1.6 H Eos # (Auto) 0.2 Baso # (Auto) 0.1 Immature Gran % 0.6 Nucleated RBC % 0.0 Immature Gran # 0.08 Nucleated RBCs # 0.00 Immature Plt Fraction 0.0 INR 1.7 PT Patient/Control Mix 18.0 D Sodium Potassium Chloride Carbon Dioxide Anion Gap BUN Creatinine GFR Calculation BUN/Creatinine Ratio Glucose Calculated Osmolality Calcium Phosphorus Magnesium Total Bilirubin AST ALT Alkaline Phosphatase Total Creatine Kinase CK-MB (CK-2) Troponin I B-Natriuretic Peptide Total Protein Albumin Globulin Albumin/Globulin Ratio Free T4 TSH 3rd Generation Urine Color Straw Urine Appearance Clear Urine pH 5.0 Ur Specific Franklin 1.006 Urine Protein Negative Urine Glucose (UA) Negative Urine Ketones Negative Urine Blood Negative Urine Nitrate Negative Urine Bilirubin Negative Urine Urobilinogen < 2.0 H Urine Leukocytes Negative Ur Squamous Epith Cells Occasional Hyaline Casts 12 Urine Mucus Occasional Ur Culture Indicated? Not indicated 04/17/17 04/17/17 04/18/17 22:14 22:14 03:50 WBC RBC Hgb Hct MCV MCH MCHC RDW Plt Count MPV Neut % (Auto) Lymph % (Auto) Archer % (Auto) Eos % (Auto) Baso % (Auto) Neut # (Auto) Lymph # (Auto) Archer # (Auto) Eos # (Auto) Baso # (Auto) Immature Gran % Nucleated RBC % Immature Gran # Nucleated RBCs # Immature Plt Fraction INR PT Patient/Control Mix Sodium 142 142 Potassium 3.9 5.3 H Chloride 106 102 Carbon Dioxide 28 34 H Anion Gap 11.9 11.3 BUN 31 H 32 H Creatinine 1.10 H 1.20 H GFR Calculation 54 49 BUN/Creatinine Ratio 28.00 H 26.00 H Glucose 100 155 H Calculated Osmolality 289.1 292.1 Calcium 8.5 8.7 Phosphorus Magnesium 2.2 2.4 Total Bilirubin < 0.39 AST 19 ALT 29 Alkaline Phosphatase 98 Total Creatine Kinase 124 CK-MB (CK-2) 3.3 Troponin I 0.048 H B-Natriuretic Peptide 501 H Total Protein 6.9 Albumin 3.7 Globulin 3.2 Albumin/Globulin Ratio 1.1 Free T4 TSH 3rd Generation 0.481 Urine Color Urine Appearance Urine pH Ur Specific Franklin Urine Protein Urine Glucose (UA) Urine Ketones Urine Blood Urine Nitrate Urine Bilirubin Urine Urobilinogen Urine Leukocytes Ur Squamous Epith Cells Hyaline Casts Urine Mucus Ur Culture Indicated? 04/18/17 04/18/17 04/18/17 03:50 03:50 08:19 WBC 9.4 RBC 5.16 Hgb 14.6 Hct 44.1 MCV 85.5 L MCH 28 MCHC 33.1 RDW 16.4 Plt Count 246 MPV 12.2 H Neut % (Auto) 88.7 H Lymph % (Auto) 8.5 L Archer % (Auto) 1.9 Eos % (Auto) 0.0 Baso % (Auto) 0.3 Neut # (Auto) 8.4 H Lymph # (Auto) 0.8 L Archer # (Auto) 0.2 Eos # (Auto) 0.0 Baso # (Auto) 0.0 Immature Gran % 0.6 Nucleated RBC % 0.0 Immature Gran # 0.06 Nucleated RBCs # 0.00 Immature Plt Fraction 0.0 INR 1.7 PT Patient/Control Mix 19.0 Sodium Potassium Chloride Carbon Dioxide Anion Gap BUN Creatinine GFR Calculation BUN/Creatinine Ratio Glucose Calculated Osmolality Calcium Phosphorus Magnesium Total Bilirubin AST ALT Alkaline Phosphatase Total Creatine Kinase CK-MB (CK-2) Troponin I B-Natriuretic Peptide 341 H Total Protein Albumin Globulin Albumin/Globulin Ratio Free T4 TSH 3rd Generation Urine Color Urine Appearance Urine pH Ur Specific Franklin Urine Protein Urine Glucose (UA) Urine Ketones Urine Blood Urine Nitrate Urine Bilirubin Urine Urobilinogen Urine Leukocytes Ur Squamous Epith Cells Hyaline Casts Urine Mucus Ur Culture Indicated? 04/18/17 04/18/17 04/18/17 08:19 10:35 10:35 WBC RBC Hgb Hct MCV MCH MCHC RDW Plt Count MPV Neut % (Auto) Lymph % (Auto) Archer % (Auto) Eos % (Auto) Baso % (Auto) Neut # (Auto) Lymph # (Auto) Archer # (Auto) Eos # (Auto) Baso # (Auto) Immature Gran % Nucleated RBC % Immature Gran # Nucleated RBCs # Immature Plt Fraction INR 1.8 PT Patient/Control Mix 19.8 Sodium 140 Potassium 5.1 Chloride 102 Carbon Dioxide 31 Anion Gap 12.1 BUN 34 H Creatinine 1.30 H GFR Calculation 44 BUN/Creatinine Ratio 26.00 H Glucose 145 H Calculated Osmolality 289.4 Calcium 8.1 L Phosphorus 5.5 H Magnesium 2.2 Total Bilirubin 0.50 AST 18 ALT 29 Alkaline Phosphatase 86 Total Creatine Kinase CK-MB (CK-2) Troponin I B-Natriuretic Peptide Total Protein 7.0 Albumin 3.6 Globulin 3.4 Albumin/Globulin Ratio 1.0 L Free T4 1.39 TSH 3rd Generation 0.363 Urine Color Urine Appearance Urine pH Ur Specific Franklin Urine Protein Urine Glucose (UA) Urine Ketones Urine Blood Urine Nitrate Urine Bilirubin Urine Urobilinogen Urine Leukocytes Ur Squamous Epith Cells Hyaline Casts Urine Mucus Ur Culture Indicated?
[2017-04-18 11:22] LABS: INR 1.8; PT Patient Result 19.8 SECS
[2017-04-18 11:25] LABS: Free T4 (Free Thyroxine) 1.39 NG/DL (0.76-1.46); Thyroid Stimulating Hormone 0.363 uIU/ml (0.358-3.74)
--- NOTE | 2017-04-18 12:09 | EKG Report ---
Stationary ECG Study [facility] ER Test Date: 04/17/2017 11:05:48 PM Pat Name: RASHAD COY Department: Room: 279 Gender: F Mail Handler: : [id number] Requested by: Jose Apple Order Number: [id number] Reading MD: MALIHA JORGE Intervals [place] Rate: 62 P: 60 HI: 144 QRS: 0 QRSD: 97 T: 38 QT: 414 QTc: 419 Interpretive Statements SINUS RHYTHM WITH OCCASIONAL ECTOPIC PREMATURE COMPLEXES Electronically Signed On 04-18-17 12:33:45 CDT by MALIHA JORGE [email or web address]
[2017-04-18] MEDS ORDERED: WARFARIN 4 MG TABLET PO SCH (18:00)
--- NOTE | 2017-04-18 18:06 | ECHO Report ---
Anum Zamarripa Exam Date: 04/18/2017 11:31 Referring Physician: Technologist: Florencia Mejia RDCS Age: 76 Ht (in): 60 Wt (lb): 215 Gender: F Exam Location: [facility] Echo Indications: Acute diastolic (congestive) heart failure, Sleep apnea, Atrial fibrillation, Chronic anticoagulation, Essential (primary) hypertension, hx pulmonar embolism BP: 150 / 95 HR: 55 Rhythm: Sinus Technical Quality: Fair IMPRESSIONS 1. The left ventricle is normal size with moderate concentric left ventricular hypertrophy some degree of diastolic dysfunction. Ejection fraction is preserved at 55%. 2. Left atrium is moderately dilated with the right atrium mildly dilated. 3. Mitral valve is mildly thickened with annular calcification and mild regurgitation. 4. Aortic valve is mildly sclerotic in with probably mild stenosis at worse. 5. Trace to mild tricuspid regurgitation. 6. Mild to moderately elevated right-sided pressures. MEASUREMENTS (Male / Female) Normal Values 2D ECHO LV Diastolic Diameter PLAX 3.8 cm 4.2 - 5.9 / 3.9 - 5.3 cm LV Systolic Diameter PLAX 2.8 cm LV Fractional Shortening PLAX 26.3 % IVS Diastolic Thickness 1.5 cm 0.6 - 1.0 / 0.6 - 0.9 cm LVPW Diastolic Thickness 1.5 cm 0.6 - 1.0 / 0.6 - 0.9 cm RV Internal Dim ED PLAX 2.5 cm Aortic Root Diameter 3.2 cm LA Systolic Diameter LX 4.3 cm 3.0 - 4.0 / 2.7 - 3.8 cm DOPPLER TR Peak Velocity 326.0 cm/s TR Peak Gradient 42.5 mmHg FINDINGS Left Ventricle Normal left ventricular cavity size. Moderate left ventricular hypertrophy. Left ventricular ejection fraction is estimated at 55 %. Right Ventricle The right ventricle is normal in size and function. Right Atrium The right atrium is mildly enlarged. Left Atrium Moderately increased left atrial size. Mitral Valve Mildly thickened mitral valve. Mild mitral annular calcification. Mild mitral valve regurgitation. Aortic Valve Aortic valve sclerosis with probable mild stenosis at least. No insufficiency. Tricuspid Valve Morphologically normal tricuspid valve. Trace to mild tricuspid valve regurgitation. Tricuspid regurgitation velocities suggest a PAP of 53 mmHg. Pulmonic Valve Morphologically normal pulmonic valve without significant stenosis. There is no pulmonic regurgitation. Pericardium Normal pericardium without effusion. Aorta Normal ascending aorta dimension. Km Enamorado MD (Electronically Signed) Final Date: 18 April 2017 18:05
[2017-04-18] MEDS: WARFARIN 5 MG TABLET PO SCH (18:48)
[2017-04-18] MEDS: LEFLUNOMIDE 10 MG TABLET PO SCH (21:22)
[2017-04-18] MEDS: FLECAINIDE 50 MG TABLET PO SCH (21:23)
[2017-04-19 05:19] LABS: Basophils % 0.3 % (0.0-0.8); Eosinophils # 0.1 10*3/uL (0.0-0.87); Eosinophils % 0.6 % (0.00-10.9); Hematocrit 38.6 VOL% (35.7-47.0); Hemoglobin 12.5 GM/DL (12.0-16.0); Immature Granulocytes % 0.7 %; Immature Granulocytes Absolute 0.08 #; Lymphocytes # 1.8 10*3/uL (1.4-4.0); Lymphocytes % 15.3 % (21.3-54.2); Mean Corpuscular HGB Conc 32.4 GM/DL (32-36); Mean Corpuscular Hemoglobin 28 PG (27-34); Mean Corpuscular Volume 86.5 FL (87-102); Mean Platelet Volume 12.8 FL (9.6-12.0); Monocytes # 1.6 10*3/uL (0.11-0.8); Monocytes % 14.1 % (1.7-12.7); Platelet Count 192 T/CUMM (130-400); Red Blood Count 4.46 MC/CUMM (3.8-5.5); Red Cell Distribution Width 16.6 % (9.3-17.3); White Blood Count 11.6 T/CUMM (4-12)
[2017-04-19 05:28] LABS: INR 2.2
[2017-04-19] MEDS: LEVOTHYROXINE 125 MCG TABLET PO SCH (06:41)
[2017-04-19 06:56] LABS: Albumin 3.1 G/DL (3.4-5.0); Bilirubin,Total 0.4 MG/DL (0.2-1.0); Magnesium 2.5 MG/DL (1.8-2.4); Osmolality,Calculated 293.3 MOS/KG (273-304); Phosphorous 6.4 MG/DL (2.5-4.9); Potassium 3.8 MMOL/L (3.5-5.1); Total Protein 5.6 G/DL (6.4-8.3)
--- NOTE | 2017-04-19 09:05 | XRay Report ---
Portable chest Date: 04/19/2017 Clinical history: COPD Comparison: 04/17/2017 Technique: Portable AP sitting chest Findings: The heart is minimally enlarged with calcification in the aortic knob. No change in the appearance of the lungs or mediastinum. Degenerative changes with prior anterior cervical fusion. Impression: No acute cardiopulmonary pathology identified. PROCEDURE INTERPRETED AT [facility] DEPARTMENT OF RADIOLOGY Final Report Signed by: Dr. Joanna Miller
[2017-04-19] MEDS: FLECAINIDE 50 MG TABLET PO SCH ×2 (09:23→21:39)
[2017-04-19] MEDS: PANTOPRAZOLE 40 MG TABLET PO SCH (09:23)
[2017-04-19] MEDS: VENLAFAXINE XR 37.5 MG CAPSULE PO SCH (09:23)
[2017-04-19] MEDS: GABAPENTIN 400 MG CAPSULE PO SCH ×3 (09:23→21:39)
[2017-04-19] MEDS: DICYCLOMINE 10 MG CAPSULE PO SCH ×4 (09:23→21:39)
[2017-04-19] MEDS: LABETALOL 200 MG TABLET PO SCH ×2 (09:23→21:39)
[2017-04-19] MEDS: MULTIVITAMIN (OCUVITE) TABLET PO SCH ×2 (09:23→21:39)
[2017-04-19] MEDS: FUROSEMIDE 40 MG TABLET PO SCH (09:23)
[2017-04-19] MEDS: predniSONE 5 MG TABLET PO SCH (09:23)
[2017-04-19] MEDS: CHOLECALCIFEROL 400 UNIT TABLET PO SCH (09:23)
[2017-04-19] MEDS: CALCIUM (CARBONATE)/VITAMIN D 600 MG-400 UNIT TABLET PO SCH (09:23)
[2017-04-19] MEDS: LISINOPRIL 20 MG TABLET PO SCH (09:23)
[2017-04-19] MEDS: FLUTICASONE/SALMETEROL 250-50 DISKUS 14 DOSE INH SCH ×2 (09:23→21:40)
[2017-04-19] MEDS: ENOXAPARIN 100 MG/ML SYRINGE SUBCUT SCH ×2 (09:24→21:38)
--- NOTE | 2017-04-19 10:06 | Hospitalist Progress Note ---
<James Roth - Last Filed: 04/19/17 10:04> Assessment and Plan (1) Acute pulmonary edema Status: Acute Assessment and plan: BNP at the time of presentation 501, the patient was aggressively diuresed. BNP is noted at 341. The patient has reported no additional episodes of shortness of breath. Will recheck chest x-ray in a.m. 04/19-chest x-ray slightly improved. We will continue gentle diuresis as previously ordered. Current Visit: Yes (2) Atrial fibrillation with RVR Status: Resolved Assessment and plan: Rate is controlled. We will consult cardiology to evaluate. The patient is managed by Dr. Enamorado in the outpatient setting. 04/19-the patient was seen and evaluated by cardiology on yesterday. We appreciate cardiology's input. Cardiology to manage. Current Visit: Yes (3) Chronic anticoagulation Status: Chronic Assessment and plan: INR was noted at 1.7 at the time of ED presentation. The patient was given a one-time dose of Coumadin in the ED. The INR has remained unchanged. The patient's Coumadin had been placed on hold at the the patient underwent a spinal procedure 2 weeks ago. We have consulted cardiology to evaluate and assist. 04/19-INR noted at 2.2 today. We will continue Coumadin per cardiology recommendation. Current Visit: Yes (4) Acute kidney failure Status: Acute Assessment and plan: Noted decline in renal function since inpatient admission. BUN and creatinine noted at 50 and 1.40 up from 34 and 1.30 on yesterday. We will consult nephrology to evaluate and assist. Current Visit: Yes Hospitalist: Subjective Interval history: Patient seen and examined; chart reviewed. No significant overnight events reported per staff. The patient was evaluated by cardiology on yesterday. We appreciate the input by cardiology. Exam - Constitutional Vitals: Period Temp Pulse Resp BP Sys/Funes Pulse Ox Last 24 Hr 96.8 F-98.5 F 52-75 16-20 105-122/47-85 90-95 General appearance: morbidly obese - Head Head exam: Present: normal inspection, normocephalic, atraumatic - Eye Eye exam: Present: EOMI. Absent: conjunctival injection Pupils: Present: CHOLO, normal accommodation - ENT ENT exam: Present: normal exam, normal external ear exam, normal oropharynx - Neck Neck exam: Present: normal inspection. Absent: lymphadenopathy, meningismus, tenderness, thyromegaly - Respiratory Respiratory exam: Present: clear to auscultation bilaterally. Absent: rales, rhonchi, stridor, wheezes - Cardiovascular Cardiovascular exam: Present: regular rate and rhythm. Absent: carotid bruit, diastolic murmur, gallop, JVD, rubs, systolic murmur - GI/Abdominal GI/Abdominal exam: Present: normal bowel sounds, soft - Extremities Exam Extremities exam: Present: normal inspection, normal capillary refill, full ROM , edema (Trace edema noted to bilateral lower extreme) - Back Exam Back exam: Present: normal inspection - Neurological Exam Neurological exam: Present: alert, oriented X3, CN II-XII intact - Psychiatric Psychiatric exam: Present: normal affect - Skin Skin exam: Present: normal color, warm, dry Results - Labs CBC & BMP: 04/19/17 04:13 04/19/17 04:13 Lab Results: I have reviewed the past 24 hour labs Specialty Discharge - Follow Up or Referrals <Philip Trent - Last Filed: 04/19/17 10:26> Hospitalist: Subjective Interval history: Patient is doing well. She is much improved since admission. She continues undergoing intravenous diuresis. I will continue diuresis. Probable discharge tomorrow morning. Exam - Constitutional Vitals: Period Temp Pulse Resp BP Sys/Funes Pulse Ox Last 24 Hr 96.8 F-98.5 F 52-75 16-20 105-122/47-85 90-95 Results - Labs CBC & BMP: 04/19/17 04:13 04/19/17 04:13
--- NOTE | 2017-04-19 12:21 | Cardiology Progress Note ---
Assessment and Plan (1) Chest pain Status: Acute Assessment and plan: She had an episode this morning some nausea with her atrial fibrillation but did not have any tachycardia. We will monitor this over the day. I have asked her to walk and ambulate. Current Visit: Yes (2) Paroxysmal atrial fibrillation with rapid ventricular response Status: Acute Assessment and plan: This been a recurrent issue. She is now flecainide and tolerating this well. We will get ECG in the morning. Current Visit: Yes (3) History of pulmonary embolus (PE) Status: Acute Assessment and plan: She is on warfarin for this as well. Current Visit: Yes (4) Chronic anticoagulation Status: Chronic Assessment and plan: INR is now more therapeutic. Current Visit: Yes (5) Sleep apnea Status: Chronic Assessment and plan: This chronic issue. Current Visit: Yes (6) Acute renal insufficiency Status: Acute Assessment and plan: Creatinine is increased. Not clear why. Current Visit: Yes Cardiology - PN: Subj Interval history: The patient generally done well. She has had no further atrial fibrillation or tachyarrhythmias. She has had no shortness of breath but while she was on the chair did have an episode of prolonged chest pain she felt maybe a little worse with a deep breath. This is similar to what she had with her atrial fibrillation. The telemetry though did not reveal any tachycardia with this. Her vital signs been stable as is her lab work. Chest x-ray was as reported is unremarkable. She is tolerating the flecainide well without issues. I will check a ECG tomorrow. Exam (Progress Note) - Constitutional Vitals: Period Temp Pulse Resp BP Sys/Funes Pulse Ox Last 24 Hr 96.8 F-98.5 F 52-63 16-20 105-140/47-85 90-96 Exam: General appearance: Obese, no acute distress HEENT exam: normal inspection, atraumatic Neck exam: normal inspection no JVD. No carotid bruit. Trachea is in midline Respiratory/lungs exam: clear to auscultation bilaterally and anteriorly with good air movement. Cardiovascular exam: regular rate and rhythm, no murmur or gallop or rub. No precordial lift. Chest wall exam: nontender GI/Abdominal exam: normal bowel sounds, soft, nontender, no abdominal bruits or pulsatile masses. Extremeties/musculoskeletal: normal inspection without edema or cyanosis. Neurological exam: alert, oriented X3, no focal deficits Psychiatric exam: normal affect, normal mood. Cognitive function is grossly normal. Skin exam: normal color, warm Result/EKG - Labs CBC & BMP: 04/19/17 04:13 04/19/17 04:13 Lab Results: I have reviewed the past 24 hour labs Labs: Laboratory Results - last 24 hr 04/19/17 04/19/17 04/19/17 04:13 04:13 04:13 WBC 11.6 RBC 4.46 Hgb 12.5 D Hct 38.6 MCV 86.5 L MCH 28 MCHC 32.4 RDW 16.6 Plt Count 192 D MPV 12.8 H Neut % (Auto) 69.0 Lymph % (Auto) 15.3 L [place] % (Auto) 14.1 H Eos % (Auto) 0.6 Baso % (Auto) 0.3 Neut # (Auto) 8.0 H Lymph # (Auto) 1.8 [place] # (Auto) 1.6 H Eos # (Auto) 0.1 Baso # (Auto) 0.0 Immature Gran % 0.7 Nucleated RBC % 0.0 Immature Gran # 0.08 Nucleated RBCs # 0.00 Immature Plt Fraction 0.0 INR 2.2 PT Patient/Control Mix 24.0 D Sodium 141 Potassium 3.8 Chloride 102 Carbon Dioxide 30 Anion Gap 12.8 BUN 50 H D Creatinine 1.40 H GFR Calculation 41 BUN/Creatinine Ratio 35.00 H Glucose 102 Calculated Osmolality 293.3 Calcium 8.0 L Phosphorus 6.4 H Magnesium 2.5 H Total Bilirubin 0.40 AST 12 ALT 22 Alkaline Phosphatase 77 Total Protein 5.6 L Albumin 3.1 L Globulin 2.5 Albumin/Globulin Ratio 1.2 - Impressions Impressions: Telemetry with normal sinus rhythm without any breakthrough atrial fibrillation. Specialty Discharge - Follow Up or Referrals Follow up with: Km Enamorado MD [Physician] - (Have the patient follow with me 1 week after she is discharged.)
[2017-04-19] MEDS: WARFARIN 5 MG TABLET PO SCH (18:08)
[2017-04-19] MEDS: LEFLUNOMIDE 10 MG TABLET PO SCH (21:39)
[2017-04-20 05:18] LABS: Basophils # 0.1 10*3/uL (0.0-0.2); Basophils % 0.6 % (0.0-0.8); Eosinophils # 0.3 10*3/uL (0.0-0.87); Eosinophils % 2.6 % (0.00-10.9); Hematocrit 40.2 VOL% (35.7-47.0); Immature Granulocytes % 0.5 %; Immature Granulocytes Absolute 0.05 #; Lymphocytes # 2.1 10*3/uL (1.4-4.0); Lymphocytes % 19.2 % (21.3-54.2); Mean Corpuscular HGB Conc 32.3 GM/DL (32-36); Mean Corpuscular Hemoglobin 28 PG (27-34); Mean Corpuscular Volume 87.8 FL (87-102); Mean Platelet Volume 13.1 FL (9.6-12.0); Monocytes # 1.4 10*3/uL (0.11-0.8); Monocytes % 12.5 % (1.7-12.7); Neutrophils % 64.6 % (38.7-73.9); Platelet Count 181 T/CUMM (130-400); Red Blood Count 4.58 MC/CUMM (3.8-5.5); Red Cell Distribution Width 16.9 % (9.3-17.3); White Blood Count 10.9 T/CUMM (4-12)
[2017-04-20 05:35] LABS: INR 2.4
[2017-04-20 05:40] LABS: PT Patient Result 26.4 SECS
[2017-04-20 06:11] LABS: Alanine Aminotransferase 21 U/L (13-56); Alkaline Phosphatase 73 U/L (45-117); Aspartate Amino Transferase 14 U/L (0-37); Bilirubin,Total < 0.39 MG/DL (0.2-1.0); Blood Urea Nitrogen 58 MG/DL (7-18); Calcium 7.7 MG/DL (8.5-10.1); Glucose 82 MG/DL (74-106); Osmolality,Calculated 297.1 MOS/KG (273-304); Phosphorous 5.2 MG/DL (2.5-4.9); Potassium 4.2 MMOL/L (3.5-5.1); Sodium 142 MMOL/L (136-145); Total Protein 5.6 G/DL (6.4-8.3)
[2017-04-20] MEDS: LEVOTHYROXINE 125 MCG TABLET PO SCH (06:36)
[2017-04-20] MEDS: FUROSEMIDE 40 MG TABLET PO SCH (08:34)
[2017-04-20] MEDS: MULTIVITAMIN (OCUVITE) TABLET PO SCH (08:35)
[2017-04-20] MEDS: GABAPENTIN 400 MG CAPSULE PO SCH ×2 (08:35→15:06)
[2017-04-20] MEDS: LABETALOL 200 MG TABLET PO SCH (08:36)
[2017-04-20] MEDS: CALCIUM (CARBONATE)/VITAMIN D 600 MG-400 UNIT TABLET PO SCH (08:36)
[2017-04-20] MEDS: CHOLECALCIFEROL 400 UNIT TABLET PO SCH (08:36)
[2017-04-20] MEDS: PANTOPRAZOLE 40 MG TABLET PO SCH (08:36)
[2017-04-20] MEDS: VENLAFAXINE XR 37.5 MG CAPSULE PO SCH (08:37)
[2017-04-20] MEDS: FLECAINIDE 50 MG TABLET PO SCH (08:37)
[2017-04-20] MEDS: DICYCLOMINE 10 MG CAPSULE PO SCH ×3 (08:37→17:16)
[2017-04-20] MEDS: LISINOPRIL 20 MG TABLET PO SCH (08:37)
[2017-04-20] MEDS: predniSONE 5 MG TABLET PO SCH (08:38)
[2017-04-20] MEDS: FLUTICASONE/SALMETEROL 250-50 DISKUS 14 DOSE INH SCH (08:38)
--- NOTE | 2017-04-20 09:44 | Discharge Summary ---
Hospital Course - Hospital Course Hospital Course: Ms. Zamarripa, 76WF, with risk factor significant for: age, hypertension, obesity. 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 INR managed by Dr. Tang. Patient was hospitalized in September 2016 and diagnosed with paroxysmal atrial fibrillation at that time. The episode was brief, nonsustained. Patient wore a 48 hour Holter monitor March 17, 2017 which revealed one episode of atrial tachycardia but no atrial fibrillation. Her atrial tachycardia was only for 5 days. December 04, 2016 echo: EF 65%, grade 1 diastolic dysfunction, moderately increased left atrial diameter, PAP 55 mmHg assuming RAP 3 mmHg. Presented to the ED of [facility] April 17, 2017 with complaints of shortness of breath, palpitations for several weeks, worsening for the past several days. She began to express 2-3 pillow orthopnea, mild lower extremity edema approximately 2 days prior to admission. In the emergency department she was found to be in atrial fibrillation with rapid ventricular response, acute CHF. She was treated with IV Diltiazem and Lasix. She experienced mild hypotension after conversion back to normal sinus rhythm and diuresis. INR subtherapeutic 1.7. She has remained in normal sinus rhythm through the remainder of the hospital stay. She has been bridged with therapeutic doses of Lovenox, Coumadin continues. (Of note she had held her Coumadin recently for a procedure ). Patient also had been given a steroid injection approximately 1 week ago for back pain. Around this time, she believes she began to feel worse. Patient was admitted to the telemetry unit with acute on chronic diastolic congestive heart failure. She was seen in consultation by Dr. Enamorado of cardiology. She was treated with intravenous furosemide, undergoing significant diuresis. Her BUN and creatinine increased during hospitalization to 38 and 1.5 respectively, compatible with prerenal azotemia secondary to diuresis. At the time of her discharge she was significantly more comfortable with no complaints. Diagnosis - Discharge Diagnosis (1) Paroxysmal atrial fibrillation with rapid ventricular response Status: Chronic (2) Chronic anticoagulation Status: Chronic (3) Acute diastolic CHF (congestive heart failure), NYHA class 3 Status: Acute (4) Acute renal insufficiency Status: Acute Specialty Discharge - Follow Up or Referrals Follow up with: Km Enamorado MD [Physician] - (Have the patient follow with me 1 week after she is discharged.) Discharge Plan - Discharge Data Discharge Diet: advance to your usual diet Activity: resume usual activities as tolerated Driving: no restrictions - Discharge Medications New RX: Flecainide [Tambocor] 50 mg PO BID #60 tablet RX: Warfarin [Coumadin] 5 mg PO DAILY@1800 tablet Continue RX: Levothyroxine Tab [Synthroid Tab] 125 mcg PO DAILY@0700 RX: Labetalol Tab [Trandate Tab] 200 mg PO BID RX: Venlafaxine Xr [Effexor Xr] 37.5 tablet PO DAILY W/BREAKFAST RX: Lisinopril 20 mg PO DAILY RX: HYDROcodone/ACETAMIN 10-325 [[place] 10-325] 1 tablet PO Q6H PRN PRN Reason: Pain RX: Furosemide Tab [Lasix Tab] 40 mg PO DAILY RX: Warfarin [Coumadin] 5 mg PO DAILY@1800 RX: Leflunomide [Arava] 20 mg PO BEDTIME RX: Gabapentin [Neurontin] 800 mg PO TID RX: Cholecalciferol [Vitamin D3] 400 unit PO DAILY tablet RX: Fluticasone/Salmeterol 250-50 [Advair 250-50] 1 puff INH BID #1 RX: Vit C/Vit E AC/Lut/Copper/Zinc [Preservision Lutein Softgel] 1 each PO DAILY RX: Omeprazole [Prilosec] 20 mg PO DAILY RX: predniSONE [Prednisone] 5 mg PO DAILY RX: Dicyclomine HCl 10 mg PO QID RX: Multivitamin (Ocuvite) [Ocuvite] 1 tablet PO BID #30 tablet RX: Calcium Carbonate/Vitamin D3 [Calcium 600-Vit D3 400 Tablet] 1 each PO DAILY - Follow Up or Referral Follow Up: Km Enamorado MD [Physician] - (Have the patient follow with me 1 week after she is discharged.) - Forms/Instructions Instructions: Warfarin (By mouth) Exam - Constitutional Vitals: Period Temp Pulse Resp BP Sys/Funes Pulse Ox Last 24 Hr 96.2 F-98.6 F 53-64 16-20 100-145/51-71 92-98 General appearance: no acute distress - Head Head exam: Present: normal inspection - Neck Neck exam: Present: normal inspection - Respiratory Respiratory exam: Present: clear to auscultation bilaterally - Cardiovascular Cardiovascular exam: Present: regular rate and rhythm - GI/Abdominal GI/Abdominal exam: Present: normal bowel sounds, soft - Extremities Exam Extremities exam: Present: normal inspection - Neurological Exam Neurological exam: Present: alert, oriented X3 - Psychiatric Psychiatric exam: Present: normal affect - Skin Skin exam: Present: normal color, warm, intact Discharge Results Procedures and tests throughout hospitalization: Pending Orders 04/17/17 22:30 Blood Culture Stat 04/21/17 04:00 BMP w/ Mg [Basic Metabolic Panel w/Mg] IN AM CBC [Comp Blood Count Auto Diff] IN AM CMP [Comprehensive Metabolic Panel] IN AM Magnesium IN AM Phosphorous IN AM Prothrombin Time INR IN AM Labs on day of discharge: Labs from last 24 hours 04/20/17 04/20/17 04/20/17 04:07 04:07 04:07 WBC 10.9 RBC 4.58 Hgb 13.0 Hct 40.2 MCV 87.8 MCH 28 MCHC 32.3 RDW 16.9 Plt Count 181 MPV 13.1 H Neut % (Auto) 64.6 Lymph % (Auto) 19.2 L [place] % (Auto) 12.5 Eos % (Auto) 2.6 Baso % (Auto) 0.6 Neut # (Auto) 7.0 Lymph # (Auto) 2.1 [place] # (Auto) 1.4 H Eos # (Auto) 0.3 Baso # (Auto) 0.1 Immature Gran % 0.5 Nucleated RBC % 0.0 Immature Gran # 0.05 Nucleated RBCs # 0.00 Immature Plt Fraction 0.0 INR 2.4 PT Patient/Control Mix 26.4 Sodium 142 Potassium 4.2 Chloride 103 Carbon Dioxide 31 Anion Gap 12.2 BUN 58 H Creatinine 1.50 H GFR Calculation 38 BUN/Creatinine Ratio 38.00 H Glucose 82 Calculated Osmolality 297.1 Calcium 7.7 L Phosphorus 5.2 H Magnesium Total Bilirubin < 0.39 AST 14 ALT 21 Alkaline Phosphatase 73 Total Protein 5.6 L Albumin 3.0 L Globulin 2.6 Albumin/Globulin Ratio 1.1 04/20/17 04:07 WBC RBC Hgb Hct MCV MCH MCHC RDW Plt Count MPV Neut % (Auto) Lymph % (Auto) [place] % (Auto) Eos % (Auto) Baso % (Auto) Neut # (Auto) Lymph # (Auto) [place] # (Auto) Eos # (Auto) Baso # (Auto) Immature Gran % Nucleated RBC % Immature Gran # Nucleated RBCs # Immature Plt Fraction INR PT Patient/Control Mix Sodium Potassium Chloride Carbon Dioxide Anion Gap BUN Creatinine GFR Calculation BUN/Creatinine Ratio Glucose Calculated Osmolality Calcium Phosphorus Magnesium 2.6 H Total Bilirubin AST ALT Alkaline Phosphatase Total Protein Albumin Globulin Albumin/Globulin Ratio Preliminary micro results at discharge 04/17/17 22:24 Blood Culture - Preliminary Blood Gram Positive Cocci 04/17/17 22:30 Blood Culture - Preliminary Blood No growth at 1 day DS: Provider Date of admission: 04/17/17 23:28 Primary care physician: Louis Benites MD Attending physician on admission: Melissa Hsieh MD Consults: 04/18/17 09:16 Consult to Physician [CONS] Routine Comment: Consulting Provider: Tylor Roberts When should Consulting Provider be notified: Now Person Notified: Owen Date Notified: 04/18/17 Time Notified: 09:50 04/18/17 10:48 Consult to Sleep Center [CONS] Routine Reason for Sleep Center: Sleep Center Physician Consult Comment: Untreated sleep apnea 04/19/17 10:21 Consult to Physician [CONS] Routine Comment: Consulting Provider: Neil Badillo Jr. When should Consulting Provider be notified: Now 04/20/17 08:08 Consult to Physician [CONS] Routine Comment: Consulting Provider: Neil Badillo Jr. Discharging clinician: Philip Trent
[2017-04-20] MEDS: ENOXAPARIN 100 MG/ML SYRINGE SUBCUT SCH (09:50)
--- NOTE | 2017-04-20 10:01 | Cardiology Progress Note ---
Assessment and Plan (1) Chest pain Status: Acute Assessment and plan: No further episodes. Is somewhat atypical for cardiac. Current Visit: Yes (2) Paroxysmal atrial fibrillation with rapid ventricular response Status: Chronic Assessment and plan: This been a recurrent issue. She is now flecainide and tolerating this well. We will get ECG in the morning. Current Visit: Yes (3) History of pulmonary embolus (PE) Status: Chronic Assessment and plan: She is on warfarin for this as well. Current Visit: Yes (4) Chronic anticoagulation Status: Chronic Assessment and plan: INR is now more therapeutic. Current Visit: Yes (5) Sleep apnea Status: Chronic Assessment and plan: This chronic issue. Current Visit: Yes (6) Acute renal insufficiency Status: Acute Assessment and plan: Creatinine and BUN remain elevated. I will leave this to the primary service for further evaluation. I am going to hold her furosemide and lisinopril. Current Visit: Yes Cardiology - PN: Subj Interval history: Patient doing well the last 24 hours. She has had no breakthrough atrial fibrillation or palpitations. She denies shortness of breath. She has been up ambulating without difficulty or issues in the hallway. She has had no further chest pain. Her chest pain is somewhat been atypical. I do not think any further evaluation is needed at this time she can continue her flecainide. We will follow with her as an outpatient. She can be discharged from our standpoint but her creatinine and BUN elevation or concern. Her creatinine is still up some. Her BUN is up as well. I am little concerned with this. Patient does have a MRI as an outpatient tomorrow that she needs to get this done. She is concerned about this. Exam (Progress Note) - Constitutional Vitals: Period Temp Pulse Resp BP Sys/Funes Pulse Ox Last 24 Hr 96.2 F-98.6 F 53-64 16-20 100-145/51-71 92-98 Exam: General appearance: Obese, no acute distress HEENT exam: normal inspection, atraumatic Neck exam: normal inspection no JVD. No carotid bruit. Trachea is in midline Respiratory/lungs exam: clear to auscultation bilaterally and anteriorly with good air movement. Cardiovascular exam: regular rate and rhythm, no murmur or gallop or rub. No precordial lift. Chest wall exam: nontender GI/Abdominal exam: normal bowel sounds, soft, nontender, no abdominal bruits or pulsatile masses. Extremeties/musculoskeletal: normal inspection without edema or cyanosis. Neurological exam: alert, oriented X3, no focal deficits Psychiatric exam: normal affect, normal mood. Cognitive function is grossly normal. Skin exam: normal color, warm Result/EKG - Labs CBC & BMP: 04/20/17 04:07 04/20/17 04:07 Lab Results: I have reviewed the past 24 hour labs (Creatinine is up a little bit. This needs to be follow-up as an outpatient.) Labs: Laboratory Results - last 24 hr 04/20/17 04/20/17 04/20/17 04:07 04:07 04:07 WBC 10.9 RBC 4.58 Hgb 13.0 Hct 40.2 MCV 87.8 MCH 28 MCHC 32.3 RDW 16.9 Plt Count 181 MPV 13.1 H Neut % (Auto) 64.6 Lymph % (Auto) 19.2 L [place] % (Auto) 12.5 Eos % (Auto) 2.6 Baso % (Auto) 0.6 Neut # (Auto) 7.0 Lymph # (Auto) 2.1 [place] # (Auto) 1.4 H Eos # (Auto) 0.3 Baso # (Auto) 0.1 Immature Gran % 0.5 Nucleated RBC % 0.0 Immature Gran # 0.05 Nucleated RBCs # 0.00 Immature Plt Fraction 0.0 INR 2.4 PT Patient/Control Mix 26.4 Sodium Potassium Chloride Carbon Dioxide Anion Gap BUN Creatinine GFR Calculation BUN/Creatinine Ratio Glucose Calculated Osmolality Calcium Phosphorus Magnesium 2.6 H Total Bilirubin AST ALT Alkaline Phosphatase Total Protein Albumin Globulin Albumin/Globulin Ratio 04/20/17 04:07 WBC RBC Hgb Hct MCV MCH MCHC RDW Plt Count MPV Neut % (Auto) Lymph % (Auto) [place] % (Auto) Eos % (Auto) Baso % (Auto) Neut # (Auto) Lymph # (Auto) [place] # (Auto) Eos # (Auto) Baso # (Auto) Immature Gran % Nucleated RBC % Immature Gran # Nucleated RBCs # Immature Plt Fraction INR PT Patient/Control Mix Sodium 142 Potassium 4.2 Chloride 103 Carbon Dioxide 31 Anion Gap 12.2 BUN 58 H Creatinine 1.50 H GFR Calculation 38 BUN/Creatinine Ratio 38.00 H Glucose 82 Calculated Osmolality 297.1 Calcium 7.7 L Phosphorus 5.2 H Magnesium Total Bilirubin < 0.39 AST 14 ALT 21 Alkaline Phosphatase 73 Total Protein 5.6 L Albumin 3.0 L Globulin 2.6 Albumin/Globulin Ratio 1.1 - Impressions Impressions: Telemetry with normal sinus rhythm. Specialty Discharge - Follow Up or Referrals Follow up with: Km Enamorado MD [Physician] - (Have the patient follow with me 1 week after she is discharged. Please have renal panel done the same day.)
--- NOTE | 2017-04-20 16:30 | Nephrology Consult Note ---
History of Present Illness Chief complaint: Elevated serum creatinine History of present illness: Ms. Zamarripa is a 76 year old female with history of hypertension presented with [facility] alvarenga RVOctavia. Since admission she has been in sinus mechanism. Initial serum creatinine was noted to be 1.3 now 1.5 today. She has had no problems voiding. No hematuria no dysuria. She denies NSAID medications. No shortness of breath or chest pain. She states in the distant past many years ago she saw a kidney doctor for kidney stones. No other changes. No fevers or chills. At this time can function is stable. Hemodynamically stable. No new recommendations. Home Medications Medication Instructions Recorded Confirmed Type Labetalol Tab [Trandate Tab] 200 mg PO BID 12/07/14 04/17/17 History Levothyroxine Tab [Synthroid Tab] 125 mcg PO DAILY@0700 12/07/14 04/18/17 History Lisinopril 20 mg PO DAILY 12/07/14 04/18/17 History Venlafaxine Xr [Effexor Xr] 37.5 tablet PO DAILY W/BREAKFAST 12/07/14 04/18/17 History Furosemide Tab [Lasix Tab] 40 mg PO DAILY 06/13/16 04/17/17 History HYDROcodone/ACETAMIN 10-325 [[place] 1 tablet PO Q6H PRN 06/13/16 04/18/17 History 10-325] Leflunomide [Arava] 20 mg PO BEDTIME 06/13/16 04/18/17 History Warfarin [Coumadin] 5 mg PO DAILY@1800 06/13/16 04/18/17 History Gabapentin [Neurontin] 800 mg PO TID 10/28/16 04/18/17 History Cholecalciferol [Vitamin D3] 400 unit PO DAILY tablet 11/02/16 04/18/17 Rx Fluticasone/Salmeterol 250-50 1 puff INH BID #1 11/02/16 04/17/17 Rx [Advair 250-50] Multivitamin (Ocuvite) [Ocuvite] 1 tablet PO BID #30 tablet 11/02/16 04/18/17 Rx Calcium Carbonate/Vitamin D3 1 each PO DAILY 01/06/17 04/18/17 History [Calcium 600-Vit D3 400 Tablet] Vit C/Vit E AC/Lut/Copper/Zinc 1 each PO DAILY 01/06/17 04/17/17 History [Preservision Lutein Softgel] Dicyclomine HCl 10 mg PO QID 04/17/17 04/18/17 History Omeprazole [Prilosec] 20 mg PO DAILY 04/17/17 04/18/17 History predniSONE [Prednisone] 5 mg PO DAILY 04/17/17 04/18/17 History Flecainide [Tambocor] 50 mg PO BID #60 tablet 04/20/17 Rx Warfarin [Coumadin] 5 mg PO DAILY@1800 tablet 04/20/17 Rx Allergies Allergy/AdvReac Type Severity Reaction Status Date / Time No Known Allergies Allergy Verified 05/11/16 15:35 Medical,Surgical,& Family Hx - Medical History Cardio: History of: Hypertension No history of: CAD, AL Psychological: History of: Depression Neurology: No history of: Seizures HEENT: History of: HEENT Problems (TMJ) Endocrine: History of: Thyroid Disorder Rheumatology: History of;: Fibromyalgia, Rheumatoid Arthritis Comment Only: Rheumatological Problems (rls) Respiratory: History of: COPD, Obstructive Sleep Apnea (does not use cpap), Pulmonary Embolism Gastrointestinal: History of: Diverticulitis/ Diverticulosis, GERD, Hemorrhoids , Polyps, GI Problems (dysphagia) Musculoskeletal: History of: Back/Neck Problems (spinal stenosis, bulging disk, back surgury-ruptured disk) Hematology: History of: Clotting Problems No history of: Blood Transfusion Reaction - Surgical History Cardiac Surgeries: Sugical HX of: Cardiac Catheterization Neurologic Surgeries: Patient denies: Neurologic Surgery HEENT Surgeries: Surgical HX of: Eye Surgery (CATARACTS), Thyroid Surgery, Tonsilectomy & Adenoidectomy Abdominal Surgeries: Surgical HX of: Appendectomy, Cholecystectomy, Colonoscopy , EGD Reproductive Surgeries: Surgical HX of;: Section (x3), Hysterectomy Orthopedic Surgeries: Surgical HX of;: Spinal Surgery (ruptured disk), Total Knee Replacement (bilat) - Family History Family History: Reports;: Family Diabetes, Family Heart Disease, Family Hypertension Denies;: Family Cancer - Social History Smoking Status: Never smoker Frequency of Alcohol Use: None Type of Drug Use: None Review of Systems Constitutional: fatigue, no anorexia, no chills, no lethargy Cardiovascular: no chest pain at rest, no chest pain with activity, no dyspnea Genitourinary: no difficulty urinating, no dysuria, no flank pain Exam - Vital Signs Vital signs: Period Temp Pulse Resp BP Sys/Funes Pulse Ox Last 24 Hr 96.2 F-98.6 F 53-64 16-20 100-145/49-71 91-98 - General Appearance General appearance: well-developed, well-nourished EENT: ATNC Neck: supple Respiratory: clear Cardiology: regular rate, regular rhythm Gastrointestinal: normoactive bowel sounds, no tenderness, no guarding Neurologic: alert and oriented x3 Musculoskeletal: no clubbing Results - Labs CBC & BMP: 04/20/17 04:07 04/20/17 04:07 Assessment and Plan (1) Chronic kidney disease Status: Chronic Assessment and plan: Ok to restart lisinopril. Current Visit: Yes Qualifiers: Chronic kidney disease stage: stage 2 (mild) Qualified Code(s): N18.2 - Chronic kidney disease, stage 2 (mild) (2) COPD (chronic obstructive pulmonary disease) Status: Chronic Current Visit: No (3) PAF (paroxysmal atrial fibrillation) Status: Resolved Assessment and plan: Now in sinus mechanism. Current Visit: Yes Specialty Discharge - Follow Up or Referrals Follow up with: Km Enamorado MD [Physician] - (Have the patient follow with me 1 week after she is discharged. Please have renal panel done the same day.)
[2017-04-20 16:37] VITALS: BP 107/51
[2017-04-20] MEDS: WARFARIN 5 MG TABLET PO SCH (17:16)
== END 2017-04-20 17:50 | disposition home or self-care (01) | DRG 308 ==
LOC: N.ED 21:21 → SUATTDRO 23:27 → N.EDINP 23:27 → N.TELES 04-18 00:12
PROVIDERS: ADMIT Family Medicine

== ENCOUNTER 2018-03-27 12:29 | Inpatient (IN) ==
[2018-03-27] MEDS ORDERED: CLINDAMYCIN INJ 600 MG in PREMIX 1 EACH IV STA (13:34)
[2018-03-27] MEDS ORDERED: MORPHINE 4 MG/1 ML VIAL IV STA (13:50)
[2018-03-27] MEDS ORDERED: ONDANSETRON 4 MG/2 ML VIAL IV STA (14:25)
[2018-03-27 14:36] LABS: Basophils # 0.1 10*3/uL (0.0-0.2); Basophils % 0.5 % (0.0-0.8); Eosinophils # 0.2 10*3/uL (0.0-0.87); Eosinophils % 1.5 % (0.00-10.9); Hemoglobin 12.8 GM/DL (12.0-16.0); Immature Granulocytes % 0.7 %; Immature Granulocytes Absolute 0.09 #; Lymphocytes # 1.1 10*3/uL (1.4-4.0); Lymphocytes % 8.3 % (21.3-54.2); Mean Corpuscular HGB Conc 31.2 GM/DL (32-36); Mean Corpuscular Hemoglobin 28 PG (27-34); Mean Corpuscular Volume 90.9 FL (87-102); Mean Platelet Volume 11.8 FL (9.6-12.0); Monocytes # 0.7 10*3/uL (0.11-0.8); Monocytes % 5.6 % (1.7-12.7); Neutrophils # 10.8 10*3/uL (1.4-7.4); Neutrophils % 83.4 % (38.7-73.9); Platelet Count 200 T/CUMM (130-400); Red Blood Count 4.51 MC/CUMM (3.8-5.5); Red Cell Distribution Width 18.6 % (9.3-17.3); White Blood Count 12.9 T/CUMM (4-12)
[2018-03-27 15:00] LABS: Albumin 2.9 G/DL (3.4-5.0); Bilirubin,Total 1.4 MG/DL (0.2-1.0); Calcium 7.7 MG/DL (8.5-10.1); Osmolality,Calculated 283.4 MOS/KG (273-304); Potassium 4.5 MMOL/L (3.5-5.1); Total Protein 6.8 G/DL (6.4-8.3)
[2018-03-27 15:07] LABS: PT Patient Result 30.5 SECS; Partial Thromboplastin Time 50.2 SECS (0-40)
[2018-03-27 16:01] LABS: Sedimentation Rate-Westergren 40 MM/HR (0-30)
[2018-03-27] MEDS ORDERED: MORPHINE 4 MG/1 ML VIAL IV PRN (18:23)
[2018-03-27] MEDS ORDERED: ACETAMINOPHEN 325 MG TABLET PO PRN (18:23)
[2018-03-27] MEDS: ALBUTEROL/IPRATROPIUM 3 ML NEB RESP TX SCH (19:15)
[2018-03-27] MEDS: CEFTAROLINE 600 MG in SODIUM CHLORIDE 0.9% 100 ML IV SCH (20:58)
[2018-03-27] MEDS: LABETALOL 200 MG TABLET PO SCH (20:59)
[2018-03-27] MEDS: GABAPENTIN 400 MG CAPSULE PO SCH (20:59)
[2018-03-27] MEDS: LEFLUNOMIDE 10 MG TABLET PO SCH (20:59)
[2018-03-27] MEDS: FLECAINIDE 50 MG TABLET PO SCH (21:01)
[2018-03-27] MEDS: LISINOPRIL 20 MG TABLET PO SCH (21:01)
[2018-03-27] MEDS: THEOPHYLLINE ER 300 MG TABLET PO SCH (21:01)
[2018-03-27 21:10] LABS: Apearance,Urine CLEAR (Clear); Bilirubin,Urine Negative (Negative); Blood, Urine Negative (Negative); Glucose,Urine (UA) Negative (Negative); Ketones,Urine 5 mg/dL (Negative); Nitrite,Urine Negative (Negative); Protein,Urine 30 MG/DL; RBC,Urine 1 /HPF (0-4); Squamous Epithelial Cell,Urine Occasional /HPF (0-10); Urine Color Yellow (Yellow); Urine Specific Gravity 1.018 (1.001-1.035); WBC,Urine <1 /HPF (0-6)
[2018-03-28] MEDS: ALBUTEROL/IPRATROPIUM 3 ML NEB RESP TX SCH ×4 (01:12→20:08)
[2018-03-28] MEDS: LEVOTHYROXINE 125 MCG TABLET PO SCH (05:51)
[2018-03-28 06:17] LABS: Basophils % 0.4 % (0.0-0.8); Eosinophils # 0.2 10*3/uL (0.0-0.87); Eosinophils % 1.8 % (0.00-10.9); Hematocrit 35.7 VOL% (35.7-47.0); Immature Granulocytes % 0.7 %; Immature Granulocytes Absolute 0.06 #; Lymphocytes # 0.9 10*3/uL (1.4-4.0); Lymphocytes % 9.4 % (21.3-54.2); Mean Corpuscular HGB Conc 30.8 GM/DL (32-36); Mean Corpuscular Hemoglobin 28 PG (27-34); Mean Corpuscular Volume 91.8 FL (87-102); Mean Platelet Volume 12.3 FL (9.6-12.0); Monocytes # 0.6 10*3/uL (0.11-0.8); Monocytes % 7.1 % (1.7-12.7); Neutrophils # 7.3 10*3/uL (1.4-7.4); Neutrophils % 80.6 % (38.7-73.9); Platelet Count 171 T/CUMM (130-400); Red Blood Count 3.89 MC/CUMM (3.8-5.5); Red Cell Distribution Width 18.6 % (9.3-17.3); White Blood Count 9.1 T/CUMM (4-12)
[2018-03-28 06:30] LABS: INR 2.7
[2018-03-28 06:31] LABS: PT Patient Result 27.4 SECS
[2018-03-28 06:47] LABS: Calcium 7.2 MG/DL (8.5-10.1); Osmolality,Calculated 284.3 MOS/KG (273-304); Potassium 4.3 MMOL/L (3.5-5.1); Thyroid Stimulating Hormone 0.322 uIU/ml (0.358-3.74)
[2018-03-28] MEDS ORDERED: DULoxetine 30 MG CAPSULE PO SCH (09:00)
[2018-03-28] MEDS: CALCIUM (CARBONATE) 500 MG TABLET PO SCH (11:35)
[2018-03-28] MEDS: FUROSEMIDE 40 MG/4 ML VIAL IV SCH (11:35)
[2018-03-28] MEDS: THEOPHYLLINE ER 300 MG TABLET PO SCH ×2 (11:36→20:44)
[2018-03-28] MEDS: PANTOPRAZOLE 40 MG TABLET PO SCH (11:36)
[2018-03-28] MEDS: GABAPENTIN 400 MG CAPSULE PO SCH ×2 (11:36→20:45)
[2018-03-28] MEDS: FLECAINIDE 50 MG TABLET PO SCH ×2 (11:36→20:45)
[2018-03-28] MEDS: MONTELUKAST 10 MG TABLET PO SCH (11:36)
[2018-03-28] MEDS: VENLAFAXINE XR 37.5 MG CAPSULE PO SCH (11:37)
[2018-03-28] MEDS: LABETALOL 200 MG TABLET PO SCH ×2 (11:37→20:45)
[2018-03-28] MEDS: CHOLECALCIFEROL 400 UNIT TABLET PO SCH (11:37)
[2018-03-28] MEDS: CEFTAROLINE 600 MG in SODIUM CHLORIDE 0.9% 100 ML IV SCH ×2 (11:38→20:49)
[2018-03-28] MEDS: LISINOPRIL 20 MG TABLET PO SCH ×2 (11:51→20:45)
[2018-03-28] MEDS: ONDANSETRON 4 MG/2 ML VIAL IV PRN (15:25)
[2018-03-28] MEDS: LEFLUNOMIDE 10 MG TABLET PO SCH (20:45)
[2018-03-28] MEDS: WARFARIN 5 MG TABLET PO SCH (20:49)
[2018-03-29] MEDS: ALBUTEROL/IPRATROPIUM 3 ML NEB RESP TX SCH ×4 (01:21→19:10)
[2018-03-29] MEDS: LEVOTHYROXINE 125 MCG TABLET PO SCH (05:43)
[2018-03-29 06:55] LABS: Basophils % 0.3 % (0.0-0.8); Eosinophils # 0.2 10*3/uL (0.0-0.87); Eosinophils % 2.7 % (0.00-10.9); Hematocrit 32.5 VOL% (35.7-47.0); Hemoglobin 10.1 GM/DL (12.0-16.0); Immature Granulocytes % 0.9 %; Immature Granulocytes Absolute 0.07 #; Lymphocytes # 0.5 10*3/uL (1.4-4.0); Lymphocytes % 6.5 % (21.3-54.2); Mean Corpuscular HGB Conc 31.1 GM/DL (32-36); Mean Corpuscular Hemoglobin 28 PG (27-34); Mean Corpuscular Volume 90.8 FL (87-102); Mean Platelet Volume 11.9 FL (9.6-12.0); Monocytes # 0.6 10*3/uL (0.11-0.8); Monocytes % 7.6 % (1.7-12.7); Neutrophils # 6.4 10*3/uL (1.4-7.4); Platelet Count 158 T/CUMM (130-400); Red Blood Count 3.58 MC/CUMM (3.8-5.5); White Blood Count 7.9 T/CUMM (4-12)
[2018-03-29 07:07] LABS: INR 2.1
[2018-03-29 07:13] LABS: PT Patient Result 21.6 SECS
[2018-03-29 07:25] LABS: Osmolality,Calculated 282.3 MOS/KG (273-304); Potassium 3.6 MMOL/L (3.5-5.1)
[2018-03-29] MEDS: CEFTAROLINE 600 MG in SODIUM CHLORIDE 0.9% 100 ML IV SCH (09:42)
[2018-03-29] MEDS: FUROSEMIDE 40 MG/4 ML VIAL IV SCH (09:43)
[2018-03-29] MEDS: GABAPENTIN 400 MG CAPSULE PO SCH ×2 (09:44→20:43)
[2018-03-29] MEDS: LABETALOL 200 MG TABLET PO SCH ×2 (09:44→20:43)
[2018-03-29] MEDS: PANTOPRAZOLE 40 MG TABLET PO SCH (09:44)
[2018-03-29] MEDS: LISINOPRIL 20 MG TABLET PO SCH ×2 (09:45→20:43)
[2018-03-29] MEDS: VENLAFAXINE XR 37.5 MG CAPSULE PO SCH (09:45)
[2018-03-29] MEDS: FLECAINIDE 50 MG TABLET PO SCH ×2 (09:45→20:44)
[2018-03-29] MEDS: THEOPHYLLINE ER 300 MG TABLET PO SCH ×2 (09:45→20:44)
[2018-03-29] MEDS: CHOLECALCIFEROL 400 UNIT TABLET PO SCH (09:45)
[2018-03-29] MEDS: MONTELUKAST 10 MG TABLET PO SCH (09:45)
[2018-03-29] MEDS: CALCIUM (CARBONATE) 500 MG TABLET PO SCH (10:38)
[2018-03-29] MEDS: ONDANSETRON 4 MG/2 ML VIAL IV PRN (13:43)
[2018-03-29] MEDS: WARFARIN 5 MG TABLET PO SCH (18:15)
[2018-03-29] MEDS ORDERED: diphenhydrAMINE 50 MG/1 ML VIAL ONE (18:40)
[2018-03-29] MEDS ORDERED: methylPREDNISolone SOD SUC 125 MG/2 ML VIAL ONE (18:41)
[2018-03-29] MEDS ORDERED: methylPREDNISolone SOD SUC 125 MG/2 ML VIAL IV ONE (18:48)
[2018-03-29] MEDS ORDERED: diphenhydrAMINE 50 MG/1 ML VIAL IV ONE (18:49)
[2018-03-29] MEDS: LEFLUNOMIDE 10 MG TABLET PO SCH (20:43)
[2018-03-29] MEDS: PIPERACILLIN/TAZOBACTAM 3,375 MG in SODIUM CHLORIDE 0.9% 100 ML IV SCH (21:37)
[2018-03-29] MEDS ORDERED: VANCOMYCIN INJ 1,500 MG in SODIUM CHLORIDE 0.9% 500 ML IV SCH (23:30)
[2018-03-30] MEDS: ALBUTEROL/IPRATROPIUM 3 ML NEB RESP TX SCH ×4 (00:28→19:39)
[2018-03-30] MEDS: methylPREDNISolone SOD SUC 40 MG/1 ML VIAL IV SCH ×3 (02:55→18:22)
[2018-03-30] MEDS: LEVOTHYROXINE 125 MCG TABLET PO SCH (06:01)
[2018-03-30 08:04] LABS: Basophils % 0.2 % (0.0-0.8); Hematocrit 35.4 VOL% (35.7-47.0); Hemoglobin 11.1 GM/DL (12.0-16.0); Immature Granulocytes % 0.8 %; Immature Granulocytes Absolute 0.05 #; Lymphocytes # 0.3 10*3/uL (1.4-4.0); Lymphocytes % 4.6 % (21.3-54.2); Mean Corpuscular HGB Conc 31.4 GM/DL (32-36); Mean Corpuscular Hemoglobin 28 PG (27-34); Mean Corpuscular Volume 90.5 FL (87-102); Mean Platelet Volume 12.1 FL (9.6-12.0); Monocytes # 0.2 10*3/uL (0.11-0.8); Monocytes % 2.4 % (1.7-12.7); Neutrophils # 5.8 10*3/uL (1.4-7.4); Platelet Count 193 T/CUMM (130-400); Red Blood Count 3.91 MC/CUMM (3.8-5.5); Red Cell Distribution Width 17.6 % (9.3-17.3); White Blood Count 6.3 T/CUMM (4-12)
[2018-03-30 08:38] LABS: Calcium 6.9 MG/DL (8.5-10.1); Osmolality,Calculated 289.1 MOS/KG (273-304); Potassium 3.7 MMOL/L (3.5-5.1)
[2018-03-30 08:46] LABS: INR 2.4
[2018-03-30 08:47] LABS: PT Patient Result 24.9 SECS
[2018-03-30 08:48] LABS: Anisocytosis 1+; Band Neutrophils 35 % (0-10); Eosinophils 1 % (0-10); Lymphocytes 4 % (20-55); Platelet Estimate Normal; Poikilocytosis 1+; Segmented Neutrophils 58 % (50-85); Total Cells Counted 100
[2018-03-30 08:49] LABS: Giant Platelets Few
[2018-03-30] MEDS ORDERED: LEVOFLOXACIN INJ 750 MG in PREMIX 1 EACH IV SCH (09:00)
[2018-03-30] MEDS ORDERED: SODIUM CHLORIDE 0.9% 500 ML IV ONE (09:36)
[2018-03-30] MEDS: LISINOPRIL 20 MG TABLET PO SCH (09:43)
[2018-03-30] MEDS ORDERED: amLODIPine 5 MG TABLET PO SCH (09:46)
[2018-03-30] MEDS: PIPERACILLIN/TAZOBACTAM 3,375 MG in SODIUM CHLORIDE 0.9% 100 ML IV SCH (10:04)
[2018-03-30] MEDS: THEOPHYLLINE ER 300 MG TABLET PO SCH ×2 (10:05→22:33)
[2018-03-30] MEDS: LABETALOL 200 MG TABLET PO SCH ×2 (10:06→22:32)
[2018-03-30] MEDS: VENLAFAXINE XR 37.5 MG CAPSULE PO SCH (10:06)
[2018-03-30] MEDS: GABAPENTIN 400 MG CAPSULE PO SCH ×2 (10:06→22:32)
[2018-03-30] MEDS: PANTOPRAZOLE 40 MG TABLET PO SCH (10:06)
[2018-03-30] MEDS: CALCIUM (CARBONATE) 500 MG TABLET PO SCH (10:06)
[2018-03-30] MEDS: CHOLECALCIFEROL 400 UNIT TABLET PO SCH (10:07)
[2018-03-30] MEDS: FLECAINIDE 50 MG TABLET PO SCH ×2 (10:07→22:32)
[2018-03-30] MEDS: MONTELUKAST 10 MG TABLET PO SCH (10:14)
[2018-03-30] MEDS: diphenhydrAMINE 50 MG/1 ML VIAL IV PRN ×2 (10:15→22:35)
[2018-03-30] MEDS: FUROSEMIDE 40 MG/4 ML VIAL IV SCH (10:18)
[2018-03-30] MEDS ORDERED: LEVOFLOXACIN INJ 500 MG in PREMIX 1 EACH IV SCH (12:00)
[2018-03-30] MEDS: amLODIPine 5 MG TABLET PO SCH (12:24)
[2018-03-30] MEDS: FAMOTIDINE 20 MG/2 ML VIAL IV SCH (14:12)
[2018-03-30] MEDS: WARFARIN 5 MG TABLET PO SCH (18:22)
[2018-03-30] MEDS: LINEZOLID 600 MG TABLET PO SCH (22:32)
[2018-03-30] MEDS: LEFLUNOMIDE 10 MG TABLET PO SCH (22:32)
[2018-03-31] MEDS: FAMOTIDINE 20 MG/2 ML VIAL IV SCH ×3 (00:32→21:45)
[2018-03-31] MEDS: ALBUTEROL/IPRATROPIUM 3 ML NEB RESP TX SCH ×4 (01:50→18:58)
[2018-03-31] MEDS: methylPREDNISolone SOD SUC 40 MG/1 ML VIAL IV SCH ×4 (03:08→23:48)
[2018-03-31 07:06] LABS: Basophils % 0.2 % (0.0-0.8); Eosinophils % 0.2 % (0.00-10.9); Hematocrit 32.9 VOL% (35.7-47.0); Hemoglobin 10.4 GM/DL (12.0-16.0); Immature Granulocytes % 0.8 %; Lymphocytes # 0.3 10*3/uL (1.4-4.0); Lymphocytes % 2.2 % (21.3-54.2); Mean Corpuscular HGB Conc 31.6 GM/DL (32-36); Mean Corpuscular Hemoglobin 28 PG (27-34); Mean Corpuscular Volume 88.7 FL (87-102); Mean Platelet Volume 11.3 FL (9.6-12.0); Monocytes # 0.6 10*3/uL (0.11-0.8); Neutrophils # 11.6 10*3/uL (1.4-7.4); Neutrophils % 91.6 % (38.7-73.9); Platelet Count 244 T/CUMM (130-400); Red Blood Count 3.71 MC/CUMM (3.8-5.5); Red Cell Distribution Width 17.6 % (9.3-17.3); White Blood Count 12.6 T/CUMM (4-12)
[2018-03-31] MEDS: LEVOTHYROXINE 125 MCG TABLET PO SCH (07:10)
[2018-03-31 07:15] LABS: INR 3.4
[2018-03-31 07:23] LABS: Calcium 6.6 MG/DL (8.5-10.1); Osmolality,Calculated 297.7 MOS/KG (273-304); Potassium 3.7 MMOL/L (3.5-5.1)
[2018-03-31 08:00] LABS: Band Neutrophils 2 % (0-10); Lymphocytes 2 % (20-55); Microcytosis 1+; Ovalocytes Few; Segmented Neutrophils 90 % (50-85); Total Cells Counted 100
[2018-03-31 08:01] LABS: Hypochromasia 1+
[2018-03-31] MEDS ORDERED: amLODIPine 5 MG TABLET PO SCH (09:00)
[2018-03-31] MEDS: diphenhydrAMINE 2% CREAM 28 GM TUBE TOP PRN (09:23)
[2018-03-31] MEDS: THEOPHYLLINE ER 300 MG TABLET PO SCH ×2 (09:24→21:42)
[2018-03-31] MEDS: MONTELUKAST 10 MG TABLET PO SCH (09:24)
[2018-03-31] MEDS: CHOLECALCIFEROL 400 UNIT TABLET PO SCH (09:24)
[2018-03-31] MEDS: GABAPENTIN 400 MG CAPSULE PO SCH ×2 (09:24→21:43)
[2018-03-31] MEDS: LINEZOLID 600 MG TABLET PO SCH ×2 (09:24→21:42)
[2018-03-31] MEDS: VENLAFAXINE XR 37.5 MG CAPSULE PO SCH (09:24)
[2018-03-31] MEDS: FLECAINIDE 50 MG TABLET PO SCH ×2 (09:24→21:43)
[2018-03-31] MEDS: LABETALOL 200 MG TABLET PO SCH ×2 (09:25→21:42)
[2018-03-31] MEDS: amLODIPine 5 MG TABLET PO SCH (09:25)
[2018-03-31] MEDS: CALCIUM (CARBONATE) 500 MG TABLET PO SCH (09:25)
[2018-03-31] MEDS: FUROSEMIDE 40 MG/4 ML VIAL IV SCH (09:26)
[2018-03-31] MEDS ORDERED: LEVOFLOXACIN INJ 250 MG in PREMIX 1 EACH IV SCH (12:00)
[2018-03-31 21:25] LABS: Apearance,Urine CLEAR (Clear); Bilirubin,Urine Negative (Negative); Blood, Urine Negative (Negative); Glucose,Urine (UA) Negative (Negative); Hyaline Casts,Urine 4 /LPF (0-3); Ketones,Urine Negative (Negative); Mucus,Urine Occasional /LPF (Occasional); Nitrite,Urine Negative (Negative); Protein,Urine Negative; RBC,Urine 1 /HPF (0-4); Urine Color Yellow (Yellow); Urine Specific Gravity 1.015 (1.001-1.035); Urine Urobilinogen < 2.0 EU/DL (0.2-1.0); WBC,Urine 2 /HPF (0-6)
[2018-03-31] MEDS: LEFLUNOMIDE 10 MG TABLET PO SCH (21:43)
[2018-04-01] MEDS: ALBUTEROL/IPRATROPIUM 3 ML NEB RESP TX SCH ×4 (00:31→19:17)
[2018-04-01] MEDS: LEVOTHYROXINE 125 MCG TABLET PO SCH (07:02)
[2018-04-01] MEDS: methylPREDNISolone SOD SUC 40 MG/1 ML VIAL IV SCH ×3 (07:02→22:47)
[2018-04-01 07:44] LABS: Basophils % 0.2 % (0.0-0.8); Eosinophils # 0.1 10*3/uL (0.0-0.87); Eosinophils % 0.5 % (0.00-10.9); Hematocrit 33.6 VOL% (35.7-47.0); Hemoglobin 10.4 GM/DL (12.0-16.0); Immature Granulocytes % 1.2 %; Immature Granulocytes Absolute 0.16 #; Lymphocytes # 0.4 10*3/uL (1.4-4.0); Lymphocytes % 2.7 % (21.3-54.2); Mean Corpuscular Hemoglobin 28 PG (27-34); Mean Corpuscular Volume 89.6 FL (87-102); Mean Platelet Volume 11.3 FL (9.6-12.0); Monocytes # 0.6 10*3/uL (0.11-0.8); Monocytes % 4.9 % (1.7-12.7); Neutrophils # 11.6 10*3/uL (1.4-7.4); Neutrophils % 90.5 % (38.7-73.9); Platelet Count 273 T/CUMM (130-400); Red Blood Count 3.75 MC/CUMM (3.8-5.5); Red Cell Distribution Width 17.3 % (9.3-17.3); White Blood Count 12.8 T/CUMM (4-12)
[2018-04-01 07:52] LABS: PT Patient Result 40.6 SECS
[2018-04-01 08:02] LABS: Calcium 6.6 MG/DL (8.5-10.1); Potassium 3.5 MMOL/L (3.5-5.1)
[2018-04-01 08:33] LABS: Anisocytosis 1+; Band Neutrophils 25 % (0-10); Eosinophils 1 % (0-10); Platelet Estimate Normal; Segmented Neutrophils 73 % (50-85); Total Cells Counted 100
[2018-04-01] MEDS: FAMOTIDINE 20 MG/2 ML VIAL IV SCH ×2 (09:19→20:33)
[2018-04-01] MEDS: GABAPENTIN 400 MG CAPSULE PO SCH ×2 (09:20→20:32)
[2018-04-01] MEDS: MONTELUKAST 10 MG TABLET PO SCH (09:21)
[2018-04-01] MEDS: CALCIUM (CARBONATE) 500 MG TABLET PO SCH (09:21)
[2018-04-01] MEDS: CHOLECALCIFEROL 400 UNIT TABLET PO SCH (09:21)
[2018-04-01] MEDS: FLECAINIDE 50 MG TABLET PO SCH ×2 (09:21→20:32)
[2018-04-01] MEDS: THEOPHYLLINE ER 300 MG TABLET PO SCH ×2 (09:21→20:32)
[2018-04-01] MEDS: amLODIPine 5 MG TABLET PO SCH (09:22)
[2018-04-01] MEDS: LINEZOLID 600 MG TABLET PO SCH ×2 (09:22→20:32)
[2018-04-01] MEDS: LABETALOL 200 MG TABLET PO SCH ×2 (09:22→20:35)
[2018-04-01] MEDS: VENLAFAXINE XR 37.5 MG CAPSULE PO SCH (09:22)
[2018-04-01] MEDS: diphenhydrAMINE 2% CREAM 28 GM TUBE TOP PRN ×2 (09:24→20:35)
[2018-04-01] MEDS ORDERED: DIAZEPAM 5 MG TABLET PO ONE (10:35)
[2018-04-01] MEDS: BETAMETHASONE VALERATE 0.1% CREAM 15 GM TUBE TOP SCH ×2 (13:01→20:35)
[2018-04-01] MEDS: LEFLUNOMIDE 10 MG TABLET PO SCH (20:32)
[2018-04-02] MEDS: ALBUTEROL/IPRATROPIUM 3 ML NEB RESP TX SCH ×4 (00:02→19:40)
[2018-04-02] MEDS: LEVOTHYROXINE 125 MCG TABLET PO SCH (05:50)
[2018-04-02 06:01] LABS: Basophils % 0.1 % (0.0-0.8); Eosinophils % 0.4 % (0.00-10.9); Hematocrit 32.2 VOL% (35.7-47.0); Hemoglobin 10.1 GM/DL (12.0-16.0); Immature Granulocytes % 1.9 %; Lymphocytes # 0.4 10*3/uL (1.4-4.0); Lymphocytes % 3.6 % (21.3-54.2); Mean Corpuscular HGB Conc 31.4 GM/DL (32-36); Mean Corpuscular Hemoglobin 28 PG (27-34); Monocytes # 0.6 10*3/uL (0.11-0.8); Monocytes % 5.4 % (1.7-12.7); Neutrophils # 9.3 10*3/uL (1.4-7.4); Neutrophils % 88.6 % (38.7-73.9); Platelet Count 273 T/CUMM (130-400); Red Blood Count 3.62 MC/CUMM (3.8-5.5); Red Cell Distribution Width 17.2 % (9.3-17.3); White Blood Count 10.5 T/CUMM (4-12)
[2018-04-02] MEDS: methylPREDNISolone SOD SUC 40 MG/1 ML VIAL IV SCH ×3 (06:08→23:39)
[2018-04-02 06:11] LABS: INR 3.2
[2018-04-02 06:12] LABS: PT Patient Result 32.7 SECS
[2018-04-02 06:19] LABS: Calcium 6.7 MG/DL (8.5-10.1); Osmolality,Calculated 306.7 MOS/KG (273-304); Potassium 3.6 MMOL/L (3.5-5.1)
[2018-04-02 06:27] LABS: Band Neutrophils 2 % (0-10); Hypochromasia 1+; Lymphocytes 3 % (20-55); Ovalocytes Slight; Platelet Estimate Adequate; Segmented Neutrophils 90 % (50-85); Total Cells Counted 100
[2018-04-02 06:28] LABS: Microcytosis Slight
[2018-04-02] MEDS: FAMOTIDINE 20 MG/2 ML VIAL IV SCH ×2 (08:55→20:48)
[2018-04-02] MEDS: GABAPENTIN 400 MG CAPSULE PO SCH ×2 (08:55→20:47)
[2018-04-02] MEDS: MONTELUKAST 10 MG TABLET PO SCH (08:56)
[2018-04-02] MEDS: FLECAINIDE 50 MG TABLET PO SCH ×2 (08:56→20:49)
[2018-04-02] MEDS: LINEZOLID 600 MG TABLET PO SCH (08:56)
[2018-04-02] MEDS: CHOLECALCIFEROL 400 UNIT TABLET PO SCH (08:56)
[2018-04-02] MEDS: VENLAFAXINE XR 37.5 MG CAPSULE PO SCH (08:56)
[2018-04-02] MEDS: CALCIUM (CARBONATE) 500 MG TABLET PO SCH (08:57)
[2018-04-02] MEDS: amLODIPine 5 MG TABLET PO SCH (08:57)
[2018-04-02] MEDS: THEOPHYLLINE ER 300 MG TABLET PO SCH ×2 (08:57→20:47)
[2018-04-02] MEDS: LABETALOL 200 MG TABLET PO SCH ×2 (08:57→20:48)
[2018-04-02] MEDS: BETAMETHASONE VALERATE 0.1% CREAM 15 GM TUBE TOP SCH ×2 (09:00→20:50)
[2018-04-02] MEDS: LEFLUNOMIDE 10 MG TABLET PO SCH (20:47)
[2018-04-02] MEDS: diphenhydrAMINE 2% CREAM 28 GM TUBE TOP PRN (20:50)
[2018-04-03] MEDS: ALBUTEROL/IPRATROPIUM 3 ML NEB RESP TX SCH ×2 (00:20→07:37)
[2018-04-03] MEDS: LEVOTHYROXINE 125 MCG TABLET PO SCH (06:02)
[2018-04-03] MEDS: methylPREDNISolone SOD SUC 40 MG/1 ML VIAL IV SCH (06:02)
[2018-04-03 06:03] LABS: Basophils % 0.2 % (0.0-0.8); Eosinophils % 0.1 % (0.00-10.9); Hematocrit 32.6 VOL% (35.7-47.0); Hemoglobin 10.6 GM/DL (12.0-16.0); Immature Granulocytes % 1.8 %; Lymphocytes # 0.4 10*3/uL (1.4-4.0); Lymphocytes % 3.1 % (21.3-54.2); Mean Corpuscular HGB Conc 32.5 GM/DL (32-36); Mean Corpuscular Hemoglobin 28 PG (27-34); Mean Corpuscular Volume 86.9 FL (87-102); Mean Platelet Volume 11.3 FL (9.6-12.0); Monocytes # 0.8 10*3/uL (0.11-0.8); Monocytes % 7.2 % (1.7-12.7); Neutrophils # 9.9 10*3/uL (1.4-7.4); Neutrophils % 87.6 % (38.7-73.9); Platelet Count 310 T/CUMM (130-400); Red Blood Count 3.75 MC/CUMM (3.8-5.5); Red Cell Distribution Width 17.1 % (9.3-17.3); White Blood Count 11.3 T/CUMM (4-12)
[2018-04-03 06:11] LABS: INR 2.4
[2018-04-03 06:12] LABS: PT Patient Result 24.4 SECS
[2018-04-03 06:26] LABS: Band Neutrophils 2 % (0-10); Hypochromasia 1+; Lymphocytes 7 % (20-55); Microcytosis Slight; Ovalocytes Slight; Platelet Estimate Adequate; Segmented Neutrophils 84 % (50-85); Total Cells Counted 100
[2018-04-03 06:27] LABS: Calcium 6.7 MG/DL (8.5-10.1); Osmolality,Calculated 306.7 MOS/KG (273-304); Potassium 3.4 MMOL/L (3.5-5.1)
[2018-04-03] MEDS: FLECAINIDE 50 MG TABLET PO SCH (10:02)
[2018-04-03] MEDS: CHOLECALCIFEROL 400 UNIT TABLET PO SCH (10:02)
[2018-04-03] MEDS: CALCIUM (CARBONATE) 500 MG TABLET PO SCH (10:02)
[2018-04-03] MEDS: LABETALOL 200 MG TABLET PO SCH (10:02)
[2018-04-03] MEDS: THEOPHYLLINE ER 300 MG TABLET PO SCH (10:02)
[2018-04-03] MEDS: VENLAFAXINE XR 37.5 MG CAPSULE PO SCH (10:02)
[2018-04-03] MEDS: GABAPENTIN 400 MG CAPSULE PO SCH (10:02)
[2018-04-03] MEDS: MONTELUKAST 10 MG TABLET PO SCH (10:03)
[2018-04-03] MEDS: FAMOTIDINE 20 MG/2 ML VIAL IV SCH (10:03)
[2018-04-03] MEDS: amLODIPine 5 MG TABLET PO SCH (10:03)
[2018-04-03] MEDS: BETAMETHASONE VALERATE 0.1% CREAM 15 GM TUBE TOP SCH (12:31)
[2018-04-03 14:17] VITALS: BP 157/78
[2018-04-03] MEDS ORDERED: WARFARIN 5 MG TABLET PO SCH (18:00)
[2018-04-07] MEDS ORDERED: WARFARIN 2.5 MG TABLET PO SCH (18:00)
== END 2018-04-03 14:10 | disposition home or self-care (01) | DRG 602 ==
LOC: EDBD → EDUNIT# → N.ED 12:29 → N.EDINP 15:18 → N.5E 15:55
PROVIDERS: ADMIT Internal Medicine; ATTEND Internal Medicine

== ENCOUNTER 2018-04-15 06:53 | Inpatient (IN) ==
[2018-04-15] MEDS ORDERED: SODIUM CHLORIDE 0.9% 500 ML IV STA (07:43)
[2018-04-15] MEDS ORDERED: ONDANSETRON 4 MG/2 ML VIAL IV STA (07:43)
[2018-04-15] MEDS ORDERED: FLUCONAZOLE 100 MG TABLET PO STA (08:19)
[2018-04-15 08:20] LABS: Basophils % 0.2 % (0.0-0.8); Eosinophils # 0.6 10*3/uL (0.0-0.87); Eosinophils % 3.5 % (0.00-10.9); Hematocrit 35.9 VOL% (35.7-47.0); Hemoglobin 11.4 GM/DL (12.0-16.0); Immature Granulocytes % 0.9 %; Immature Granulocytes Absolute 0.15 #; Lymphocytes # 0.5 10*3/uL (1.4-4.0); Lymphocytes % 2.7 % (21.3-54.2); Mean Corpuscular HGB Conc 31.8 GM/DL (32-36); Mean Corpuscular Hemoglobin 29 PG (27-34); Mean Corpuscular Volume 90.4 FL (87-102); Mean Platelet Volume 11.4 FL (9.6-12.0); Monocytes # 0.5 10*3/uL (0.11-0.8); Monocytes % 2.8 % (1.7-12.7); Neutrophils # 15.9 10*3/uL (1.4-7.4); Neutrophils % 89.9 % (38.7-73.9); Platelet Count 173 T/CUMM (130-400); Red Blood Count 3.97 MC/CUMM (3.8-5.5); Red Cell Distribution Width 17.8 % (9.3-17.3); White Blood Count 17.6 T/CUMM (4-12)
[2018-04-15 08:31] LABS: Apearance,Urine CLOUDY (Clear); Bilirubin,Urine Negative (Negative); Blood, Urine Negative (Negative); Glucose,Urine (UA) 50 mg/dL (Negative); Ketones,Urine 5 mg/dL (Negative); Mucus,Urine Many /LPF (Occasional); Nitrite,Urine Negative (Negative); Protein,Urine 100 MG/DL; RBC,Urine 10 /HPF (0-4); Squamous Epithelial Cell,Urine Occasional /HPF (0-10); Urine Color Amber (Yellow); Urine Specific Gravity 1.019 (1.001-1.035); WBC,Urine 30 /HPF (0-6)
[2018-04-15 08:39] LABS: Alanine Aminotransferase 22 U/L (13-56); Albumin 2.2 G/DL (3.4-5.0); Alkaline Phosphatase 69 U/L (45-117); Aspartate Amino Transferase 19 U/L (0-37); Blood Urea Nitrogen 22 MG/DL (7-18); Calcium 6.5 MG/DL (8.5-10.1); Glucose 109 MG/DL (74-106); Osmolality,Calculated 282.4 MOS/KG (273-304); Potassium 4.3 MMOL/L (3.5-5.1); Sodium 140 MMOL/L (136-145); Total Protein 5.4 G/DL (6.4-8.3)
[2018-04-15 08:42] LABS: Lactic Acid 2.1 MMOL/L (0.4-2.0)
[2018-04-15 08:58] LABS: Band Neutrophils 6 % (0-10); Eosinophils 5 % (0-10); Hypochromasia 1+; Lymphocytes 3 % (20-55); Segmented Neutrophils 82 % (50-85); Total Cells Counted 100
[2018-04-15 08:59] LABS: Microcytosis 1+; Ovalocytes Slight
[2018-04-15] MEDS ORDERED: MORPHINE 4 MG/1 ML VIAL IV PRN (09:20)
[2018-04-15] MEDS ORDERED: ONDANSETRON 4 MG/2 ML VIAL IV PRN (09:20)
[2018-04-15 09:34] LABS: INR 4.5
[2018-04-15 09:36] LABS: PT Patient Result 45.4 SECS
[2018-04-15] MEDS: ENOXAPARIN 40 MG/0.4 ML SYRINGE SUBCUT SCH (10:55)
[2018-04-15] MEDS: metroNIDAZOLE INJ 500 MG in PREMIX 1 EACH IV SCH ×2 (10:55→23:35)
[2018-04-15] MEDS: LEVOFLOXACIN INJ 500 MG in PREMIX 1 EACH IV SCH (13:06)
[2018-04-15] MEDS: SODIUM CHLORIDE 0.9% 1,000 ML IV SCH ×2 (13:06→17:33)
[2018-04-15 13:12] LABS: Lactic Acid 2.9 MMOL/L (0.4-2.0)
[2018-04-15] MEDS ORDERED: methylPREDNISolone SOD SUC 40 MG/1 ML VIAL IV ONE (13:52)
[2018-04-15] MEDS ORDERED: diphenhydrAMINE 50 MG/1 ML VIAL IV ONE (13:52)
[2018-04-15] MEDS ORDERED: FAMOTIDINE INJ 40 MG in SODIUM CHLORIDE 0.9% 100 ML IV ONE (13:53)
[2018-04-15] MEDS ORDERED: SODIUM CHLORIDE 0.9% 3,300 ML IV ONE (14:22)
[2018-04-15] MEDS ORDERED: METOPROLOL TARTRATE 5 MG/5 ML VIAL IV PRN (14:48)
[2018-04-15] MEDS ORDERED: hydrALAZINE 20 MG/1 ML VIAL IV PRN (14:49)
[2018-04-15] MEDS ORDERED: FUROSEMIDE 20 MG/2 ML VIAL IV ONE (16:36)
[2018-04-15] MEDS: VANCOMYCIN INJ 1,750 MG in SODIUM CHLORIDE 0.9% 500 ML IV SCH (17:22)
[2018-04-15 18:14] LABS: Apearance,Urine Slightly Hazy (Clear); Bacteria,Urine Occasional /HPF (Few); Bilirubin,Urine Negative (Negative); Blood, Urine Negative (Negative); Glucose,Urine (UA) Negative (Negative); Ketones,Urine 5 mg/dL (Negative); Mucus,Urine Moderate /LPF (Occasional); Nitrite,Urine Negative (Negative); Protein,Urine 30 MG/DL; RBC,Urine 1 /HPF (0-4); Urine Color Amber (Yellow); Urine Specific Gravity 1.015 (1.001-1.035); Urine Urobilinogen < 2.0 EU/DL (0.2-1.0); WBC,Urine 3 /HPF (0-6)
[2018-04-16] MEDS: diphenhydrAMINE 50 MG/1 ML VIAL IV PRN ×2 (00:02→07:29)
[2018-04-16] MEDS: SODIUM CHLORIDE 0.9% 1,000 ML IV SCH ×3 (01:05→18:34)
[2018-04-16 06:13] LABS: Basophils % 0.2 % (0.0-0.8); Eosinophils # 0.1 10*3/uL (0.0-0.87); Eosinophils % 0.7 % (0.00-10.9); Hematocrit 32.3 VOL% (35.7-47.0); Hemoglobin 9.7 GM/DL (12.0-16.0); Immature Granulocytes % 0.6 %; Immature Granulocytes Absolute 0.08 #; Lymphocytes # 0.4 10*3/uL (1.4-4.0); Lymphocytes % 3.3 % (21.3-54.2); Mean Corpuscular Hemoglobin 28 PG (27-34); Mean Corpuscular Volume 93.6 FL (87-102); Mean Platelet Volume 11.6 FL (9.6-12.0); Monocytes # 0.3 10*3/uL (0.11-0.8); Monocytes % 2.2 % (1.7-12.7); Neutrophils # 12.3 10*3/uL (1.4-7.4); Platelet Count 159 T/CUMM (130-400); Red Blood Count 3.45 MC/CUMM (3.8-5.5); Red Cell Distribution Width 17.8 % (9.3-17.3); White Blood Count 13.3 T/CUMM (4-12)
[2018-04-16 06:36] LABS: Anisocytosis 1+; Band Neutrophils 27 % (0-10); Lymphocytes 1 % (20-55); Platelet Estimate Adequate; Poikilocytosis 1+; Segmented Neutrophils 69 % (50-85); Total Cells Counted 100
[2018-04-16 06:45] LABS: Osmolality,Calculated 287.1 MOS/KG (273-304); Potassium 4.3 MMOL/L (3.5-5.1)
[2018-04-16 06:47] LABS: Calcium 5.6 MG/DL (8.5-10.1)
[2018-04-16] MEDS: metroNIDAZOLE INJ 500 MG in PREMIX 1 EACH IV SCH ×3 (07:34→23:32)
[2018-04-16] MEDS ORDERED: CALCIUM GLUCONATE 2,000 MG in SODIUM CHLORIDE 0.9% 100 ML IV ONE (07:58)
[2018-04-16] MEDS ORDERED: diphenhydrAMINE CAP 25 MG CAPSULE PO PRN (10:03)
[2018-04-16] MEDS ORDERED: ACETAMINOPHEN 325 MG TABLET PO PRN (10:03)
[2018-04-16] MEDS ORDERED: diphenhydrAMINE 2% CREAM 28 GM TUBE TOP PRN ×2 (10:03)
[2018-04-16] MEDS: LEVOFLOXACIN INJ 500 MG in PREMIX 1 EACH IV SCH (10:05)
[2018-04-16] MEDS: ENOXAPARIN 40 MG/0.4 ML SYRINGE SUBCUT SCH (10:08)
[2018-04-16] MEDS: GABAPENTIN 400 MG CAPSULE PO SCH ×3 (12:11→21:14)
[2018-04-16] MEDS: hydrOXYzine HCL 10 MG TABLET PO SCH ×3 (12:11→21:14)
[2018-04-16 12:32] LABS: PT Patient Result 53.3 SECS
[2018-04-16 12:34] LABS: INR 5.4
[2018-04-16] MEDS ORDERED: SODIUM CHLORIDE 0.9% 1,000 ML IV PRN ×2 (12:38→12:41)
[2018-04-16] MEDS: VANCOMYCIN INJ 1,750 MG in SODIUM CHLORIDE 0.9% 500 ML IV SCH (17:14)
[2018-04-16] MEDS: FAMOTIDINE 20 MG TABLET PO SCH (21:12)
[2018-04-16] MEDS: LABETALOL 100 MG TABLET PO SCH (21:13)
[2018-04-16] MEDS: LEFLUNOMIDE 10 MG TABLET PO SCH (21:13)
[2018-04-16] MEDS: DICYCLOMINE 10 MG CAPSULE PO SCH (21:13)
[2018-04-16] MEDS: FLECAINIDE 50 MG TABLET PO SCH (21:14)
[2018-04-16] MEDS: MONTELUKAST 10 MG TABLET PO SCH (21:14)
[2018-04-16] MEDS: amLODIPine 5 MG TABLET PO SCH (21:14)
[2018-04-16] MEDS: BETAMETHASONE VALERATE 0.1% CREAM 15 GM TUBE TOP SCH (21:16)
[2018-04-17] MEDS: SODIUM CHLORIDE 0.9% 1,000 ML IV SCH (01:36)
[2018-04-17 06:08] LABS: Basophils % 0.1 % (0.0-0.8); Eosinophils # 3.3 10*3/uL (0.0-0.87); Eosinophils % 21.8 % (0.00-10.9); Hematocrit 29.6 VOL% (35.7-47.0); Hemoglobin 9.1 GM/DL (12.0-16.0); Immature Granulocytes % 0.5 %; Immature Granulocytes Absolute 0.07 #; Lymphocytes # 0.7 10*3/uL (1.4-4.0); Lymphocytes % 4.5 % (21.3-54.2); Mean Corpuscular HGB Conc 30.7 GM/DL (32-36); Mean Corpuscular Hemoglobin 28 PG (27-34); Mean Corpuscular Volume 91.9 FL (87-102); Mean Platelet Volume 11.3 FL (9.6-12.0); Monocytes # 0.7 10*3/uL (0.11-0.8); Monocytes % 4.7 % (1.7-12.7); Neutrophils # 10.2 10*3/uL (1.4-7.4); Neutrophils % 68.4 % (38.7-73.9); Platelet Count 159 T/CUMM (130-400); Red Blood Count 3.22 MC/CUMM (3.8-5.5); White Blood Count 14.9 T/CUMM (4-12)
[2018-04-17 06:13] LABS: INR 2.8
[2018-04-17] MEDS: metroNIDAZOLE INJ 500 MG in PREMIX 1 EACH IV SCH (06:16)
[2018-04-17 06:25] LABS: INR 2.9; PT Patient Result 28.2 SECS; Partial Thromboplastin Time 49.7 SECS (0-40)
[2018-04-17 06:40] LABS: Calcium 6.4 MG/DL (8.5-10.1); Osmolality,Calculated 290.7 MOS/KG (273-304)
[2018-04-17 07:00] LABS: Eosinophils 25 % (0-10); Lymphocytes 5 % (20-55); Segmented Neutrophils 70 % (50-85); Total Cells Counted 100
[2018-04-17 07:01] LABS: Platelet Estimate Normal
[2018-04-17] MEDS: LEVOTHYROXINE 125 MCG TABLET PO SCH (07:07)
[2018-04-17] MEDS: ALBUTEROL/IPRATROPIUM 3 ML NEB RESP TX PRN (10:50)
[2018-04-17] MEDS ORDERED: FUROSEMIDE 40 MG/4 ML VIAL IV ONE (12:03)
[2018-04-17] MEDS: CALCIUM (CARBONATE) 500 MG TABLET PO SCH (14:13)
[2018-04-17] MEDS: GABAPENTIN 400 MG CAPSULE PO SCH ×4 (14:13→20:26)
[2018-04-17] MEDS: LABETALOL 100 MG TABLET PO SCH ×2 (14:14→20:26)
[2018-04-17] MEDS: CHOLECALCIFEROL 400 UNIT TABLET PO SCH (14:15)
[2018-04-17] MEDS: VENLAFAXINE XR 37.5 MG CAPSULE PO SCH (14:15)
[2018-04-17] MEDS: FAMOTIDINE 20 MG TABLET PO SCH ×2 (14:15→20:26)
[2018-04-17] MEDS: MULTIVITAMIN (CENTRUM) TABLET PO SCH (14:16)
[2018-04-17] MEDS: hydrOXYzine HCL 10 MG TABLET PO SCH ×4 (14:16→20:26)
[2018-04-17] MEDS: THEOPHYLLINE ER 300 MG TABLET PO SCH (14:16)
[2018-04-17] MEDS: DICYCLOMINE 10 MG CAPSULE PO SCH ×2 (14:16→20:32)
[2018-04-17] MEDS: FLECAINIDE 50 MG TABLET PO SCH ×2 (14:17→20:31)
[2018-04-17] MEDS: ENOXAPARIN 40 MG/0.4 ML SYRINGE SUBCUT SCH (14:19)
[2018-04-17] MEDS: amLODIPine 5 MG TABLET PO SCH ×2 (14:27→20:26)
[2018-04-17] MEDS: BETAMETHASONE VALERATE 0.1% CREAM 15 GM TUBE TOP SCH ×2 (14:27→20:26)
[2018-04-17] MEDS: LEVOFLOXACIN INJ 500 MG in PREMIX 1 EACH IV SCH (14:31)
[2018-04-17] MEDS: VANCOMYCIN INJ 1,750 MG in SODIUM CHLORIDE 0.9% 500 ML IV SCH (18:28)
[2018-04-17] MEDS: LEFLUNOMIDE 10 MG TABLET PO SCH (20:26)
[2018-04-17] MEDS: MONTELUKAST 10 MG TABLET PO SCH (20:26)
[2018-04-18] MEDS: LEVOTHYROXINE 125 MCG TABLET PO SCH (06:28)
[2018-04-18 07:14] LABS: Osmolality,Calculated 291.6 MOS/KG (273-304); Potassium 3.3 MMOL/L (3.5-5.1)
[2018-04-18] MEDS: hydrOXYzine HCL 10 MG TABLET PO SCH ×4 (09:37→20:34)
[2018-04-18] MEDS: CALCIUM (CARBONATE) 500 MG TABLET PO SCH (09:37)
[2018-04-18] MEDS: amLODIPine 5 MG TABLET PO SCH (09:38)
[2018-04-18] MEDS: FLECAINIDE 50 MG TABLET PO SCH ×2 (09:39→20:34)
[2018-04-18] MEDS: VENLAFAXINE XR 37.5 MG CAPSULE PO SCH (09:39)
[2018-04-18] MEDS: GABAPENTIN 400 MG CAPSULE PO SCH ×4 (09:39→20:33)
[2018-04-18] MEDS: DICYCLOMINE 10 MG CAPSULE PO SCH ×2 (09:39→20:34)
[2018-04-18] MEDS: MULTIVITAMIN (CENTRUM) TABLET PO SCH (09:40)
[2018-04-18] MEDS: LABETALOL 100 MG TABLET PO SCH ×2 (09:41→20:33)
[2018-04-18] MEDS: THEOPHYLLINE ER 300 MG TABLET PO SCH (09:42)
[2018-04-18] MEDS: CHOLECALCIFEROL 400 UNIT TABLET PO SCH (09:42)
[2018-04-18] MEDS: BETAMETHASONE VALERATE 0.1% CREAM 15 GM TUBE TOP SCH ×2 (09:45→21:03)
[2018-04-18] MEDS: ENOXAPARIN 40 MG/0.4 ML SYRINGE SUBCUT SCH (09:47)
[2018-04-18] MEDS: LEVOFLOXACIN INJ 500 MG in PREMIX 1 EACH IV SCH (09:56)
[2018-04-18] MEDS: FAMOTIDINE 20 MG TABLET PO SCH ×2 (10:56→20:34)
[2018-04-18] MEDS: LEFLUNOMIDE 10 MG TABLET PO SCH (20:33)
[2018-04-18] MEDS: MONTELUKAST 10 MG TABLET PO SCH (20:33)
[2018-04-19 05:14] LABS: Basophils % 0.3 % (0.0-0.8); Eosinophils # 5.7 10*3/uL (0.0-0.87); Eosinophils % 55.1 % (0.00-10.9); Hematocrit 28.7 VOL% (35.7-47.0); Immature Granulocytes % 0.7 %; Immature Granulocytes Absolute 0.07 #; Lymphocytes # 0.9 10*3/uL (1.4-4.0); Lymphocytes % 8.7 % (21.3-54.2); Mean Corpuscular HGB Conc 31.4 GM/DL (32-36); Mean Corpuscular Hemoglobin 29 PG (27-34); Mean Platelet Volume 10.6 FL (9.6-12.0); Monocytes # 0.7 10*3/uL (0.11-0.8); Monocytes % 6.6 % (1.7-12.7); Neutrophils % 28.6 % (38.7-73.9); Platelet Count 185 T/CUMM (130-400); Red Blood Count 3.12 MC/CUMM (3.8-5.5); White Blood Count 10.3 T/CUMM (4-12)
[2018-04-19 05:45] LABS: Calcium 6.2 MG/DL (8.5-10.1); Potassium 3.2 MMOL/L (3.5-5.1)
[2018-04-19 05:46] LABS: Band Neutrophils 3 % (0-10); Eosinophils 60 % (0-10); Lymphocytes 5 % (20-55); Segmented Neutrophils 27 % (50-85); Total Cells Counted 100
[2018-04-19 05:47] LABS: Anisocytosis Slight; Macrocytosis Slight; Ovalocytes 2+; Platelet Estimate Normal
[2018-04-19] MEDS: VANCOMYCIN INJ 1,750 MG in SODIUM CHLORIDE 0.9% 500 ML IV SCH (06:21)
[2018-04-19] MEDS: LEVOTHYROXINE 125 MCG TABLET PO SCH (06:22)
[2018-04-19] MEDS: hydrOXYzine HCL 10 MG TABLET PO SCH ×4 (09:42→21:02)
[2018-04-19] MEDS: FLECAINIDE 50 MG TABLET PO SCH ×2 (09:42→21:01)
[2018-04-19] MEDS: DICYCLOMINE 10 MG CAPSULE PO SCH ×2 (09:42→21:02)
[2018-04-19] MEDS: VENLAFAXINE XR 37.5 MG CAPSULE PO SCH (09:43)
[2018-04-19] MEDS: CALCIUM (CARBONATE) 500 MG TABLET PO SCH (09:43)
[2018-04-19] MEDS: GABAPENTIN 400 MG CAPSULE PO SCH ×4 (09:43→21:01)
[2018-04-19] MEDS: FAMOTIDINE 20 MG TABLET PO SCH ×2 (09:44→21:02)
[2018-04-19] MEDS: MULTIVITAMIN (CENTRUM) TABLET PO SCH (09:44)
[2018-04-19] MEDS: amLODIPine 5 MG TABLET PO SCH (09:44)
[2018-04-19] MEDS: BETAMETHASONE VALERATE 0.1% CREAM 15 GM TUBE TOP SCH ×2 (09:45→21:02)
[2018-04-19] MEDS: THEOPHYLLINE ER 300 MG TABLET PO SCH (09:45)
[2018-04-19] MEDS: CHOLECALCIFEROL 400 UNIT TABLET PO SCH (09:45)
[2018-04-19] MEDS: ENOXAPARIN 40 MG/0.4 ML SYRINGE SUBCUT SCH (09:45)
[2018-04-19] MEDS: LABETALOL 100 MG TABLET PO SCH ×2 (09:45→21:02)
[2018-04-19] MEDS: LEVOFLOXACIN INJ 500 MG in PREMIX 1 EACH IV SCH (09:54)
[2018-04-19] MEDS ORDERED: DIPHENOXYLATE/ATROPINE 2.5-0.025 MG TABLET PO PRN (18:47)
[2018-04-19] MEDS: LEFLUNOMIDE 10 MG TABLET PO SCH (21:01)
[2018-04-19] MEDS: MONTELUKAST 10 MG TABLET PO SCH (21:02)
[2018-04-20 05:08] LABS: Basophils % 0.3 % (0.0-0.8); Eosinophils # 6.2 10*3/uL (0.0-0.87); Eosinophils % 53.4 % (0.00-10.9); Hematocrit 29.2 VOL% (35.7-47.0); Hemoglobin 8.8 GM/DL (12.0-16.0); Immature Granulocytes % 1.4 %; Immature Granulocytes Absolute 0.16 #; Lymphocytes # 1.1 10*3/uL (1.4-4.0); Lymphocytes % 9.8 % (21.3-54.2); Mean Corpuscular HGB Conc 30.1 GM/DL (32-36); Mean Corpuscular Hemoglobin 28 PG (27-34); Mean Corpuscular Volume 93.6 FL (87-102); Mean Platelet Volume 10.5 FL (9.6-12.0); Monocytes # 0.8 10*3/uL (0.11-0.8); Monocytes % 6.6 % (1.7-12.7); Neutrophils # 3.3 10*3/uL (1.4-7.4); Neutrophils % 28.5 % (38.7-73.9); Platelet Count 216 T/CUMM (130-400); Red Blood Count 3.12 MC/CUMM (3.8-5.5); White Blood Count 11.6 T/CUMM (4-12)
[2018-04-20 05:34] LABS: Calcium 6.7 MG/DL (8.5-10.1); Osmolality,Calculated 288.7 MOS/KG (273-304); Potassium 3.7 MMOL/L (3.5-5.1)
[2018-04-20 06:15] LABS: Band Neutrophils 2 % (0-10); Eosinophils 57 % (0-10); Lymphocytes 7 % (20-55); Segmented Neutrophils 32 % (50-85); Total Cells Counted 100
[2018-04-20 06:16] LABS: Anisocytosis 1+; Hypochromasia 1+; Microcytosis 1+; Ovalocytes Slight
[2018-04-20 06:17] LABS: Platelet Estimate Normal
[2018-04-20] MEDS: LEVOTHYROXINE 125 MCG TABLET PO SCH (06:20)
[2018-04-20] MEDS: VENLAFAXINE XR 37.5 MG CAPSULE PO SCH (09:38)
[2018-04-20] MEDS: FLECAINIDE 50 MG TABLET PO SCH ×2 (09:38→21:48)
[2018-04-20] MEDS: hydrOXYzine HCL 10 MG TABLET PO SCH ×4 (09:39→21:48)
[2018-04-20] MEDS: CHOLECALCIFEROL 400 UNIT TABLET PO SCH (09:39)
[2018-04-20] MEDS: amLODIPine 5 MG TABLET PO SCH (09:39)
[2018-04-20] MEDS: LABETALOL 100 MG TABLET PO SCH ×2 (09:39→21:48)
[2018-04-20] MEDS: GABAPENTIN 400 MG CAPSULE PO SCH ×4 (09:40→21:48)
[2018-04-20] MEDS: FAMOTIDINE 20 MG TABLET PO SCH ×2 (09:40→21:48)
[2018-04-20] MEDS: DICYCLOMINE 10 MG CAPSULE PO SCH ×2 (09:40→21:48)
[2018-04-20] MEDS: MULTIVITAMIN (CENTRUM) TABLET PO SCH (09:40)
[2018-04-20] MEDS: THEOPHYLLINE ER 300 MG TABLET PO SCH (09:40)
[2018-04-20] MEDS: ENOXAPARIN 40 MG/0.4 ML SYRINGE SUBCUT SCH (09:41)
[2018-04-20] MEDS: LEVOFLOXACIN INJ 500 MG in PREMIX 1 EACH IV SCH (09:57)
[2018-04-20] MEDS: CALCIUM (CARBONATE) 500 MG TABLET PO SCH (11:04)
[2018-04-20] MEDS: BETAMETHASONE VALERATE 0.1% CREAM 15 GM TUBE TOP SCH ×2 (11:05→21:49)
[2018-04-20] MEDS: VANCOMYCIN INJ 1,750 MG in SODIUM CHLORIDE 0.9% 500 ML IV SCH (19:28)
[2018-04-20] MEDS: LEFLUNOMIDE 10 MG TABLET PO SCH (21:47)
[2018-04-20] MEDS: MONTELUKAST 10 MG TABLET PO SCH (21:48)
[2018-04-21 06:22] LABS: Basophils % 0.4 % (0.0-0.8); Eosinophils % 55.4 % (0.00-10.9); Hematocrit 28.9 VOL% (35.7-47.0); Hemoglobin 8.9 GM/DL (12.0-16.0); Immature Granulocytes % 2.5 %; Immature Granulocytes Absolute 0.27 #; Lymphocytes % 9.6 % (21.3-54.2); Mean Corpuscular HGB Conc 30.8 GM/DL (32-36); Mean Corpuscular Hemoglobin 29 PG (27-34); Mean Corpuscular Volume 93.5 FL (87-102); Mean Platelet Volume 10.5 FL (9.6-12.0); Monocytes # 0.8 10*3/uL (0.11-0.8); NRBC # 0.02 10*3/uL; Neutrophils # 2.7 10*3/uL (1.4-7.4); Neutrophils % 25.1 % (38.7-73.9); Platelet Count 246 T/CUMM (130-400); Red Blood Count 3.09 MC/CUMM (3.8-5.5); Red Cell Distribution Width 18.6 % (9.3-17.3); White Blood Count 10.8 T/CUMM (4-12)
[2018-04-21 06:25] LABS: INR 1.3; PT Patient Result 13.8 SECS
[2018-04-21] MEDS: LEVOTHYROXINE 125 MCG TABLET PO SCH (06:35)
[2018-04-21 06:46] LABS: Calcium 6.8 MG/DL (8.5-10.1); Osmolality,Calculated 290.6 MOS/KG (273-304); Potassium 3.4 MMOL/L (3.5-5.1)
[2018-04-21 06:48] LABS: Eosinophils 50 % (0-10); Hypochromasia 1+; Lymphocytes 17 % (20-55); Ovalocytes Slight; Platelet Estimate Adequate; Segmented Neutrophils 29 % (50-85); Total Cells Counted 100
[2018-04-21 06:49] LABS: Microcytosis Slight
[2018-04-21] MEDS: FLECAINIDE 50 MG TABLET PO SCH ×2 (11:32→21:02)
[2018-04-21] MEDS: THEOPHYLLINE ER 300 MG TABLET PO SCH (11:32)
[2018-04-21] MEDS: VENLAFAXINE XR 37.5 MG CAPSULE PO SCH (11:32)
[2018-04-21] MEDS: MULTIVITAMIN (CENTRUM) TABLET PO SCH (11:32)
[2018-04-21] MEDS: DICYCLOMINE 10 MG CAPSULE PO SCH ×2 (11:32→21:03)
[2018-04-21] MEDS: hydrOXYzine HCL 10 MG TABLET PO SCH ×4 (11:33→21:03)
[2018-04-21] MEDS: CHOLECALCIFEROL 400 UNIT TABLET PO SCH (11:33)
[2018-04-21] MEDS: CALCIUM (CARBONATE) 500 MG TABLET PO SCH (11:33)
[2018-04-21] MEDS: FAMOTIDINE 20 MG TABLET PO SCH ×2 (11:33→21:03)
[2018-04-21] MEDS: GABAPENTIN 400 MG CAPSULE PO SCH ×4 (11:33→21:03)
[2018-04-21] MEDS: amLODIPine 5 MG TABLET PO SCH (11:34)
[2018-04-21] MEDS: LABETALOL 100 MG TABLET PO SCH ×2 (11:34→21:34)
[2018-04-21] MEDS: ENOXAPARIN 40 MG/0.4 ML SYRINGE SUBCUT SCH (11:35)
[2018-04-21] MEDS: LEVOFLOXACIN INJ 500 MG in PREMIX 1 EACH IV SCH (11:45)
[2018-04-21] MEDS: BETAMETHASONE VALERATE 0.1% CREAM 15 GM TUBE TOP SCH ×2 (13:56→21:22)
[2018-04-21] MEDS ORDERED: POTASSIUM CHLORIDE 20 MEQ TABLET PO ONE (14:14)
[2018-04-21] MEDS: WARFARIN 2.5 MG TABLET PO SCH (18:39)
[2018-04-21] MEDS: LEFLUNOMIDE 10 MG TABLET PO SCH (21:02)
[2018-04-21] MEDS: MONTELUKAST 10 MG TABLET PO SCH (21:03)
[2018-04-22] MEDS: LEVOTHYROXINE 125 MCG TABLET PO SCH (06:25)
[2018-04-22 06:26] LABS: Basophils # 0.1 10*3/uL (0.0-0.2); Basophils % 0.6 % (0.0-0.8); Eosinophils # 6.1 10*3/uL (0.0-0.87); Eosinophils % 56.5 % (0.00-10.9); Hematocrit 32.4 VOL% (35.7-47.0); Hemoglobin 9.8 GM/DL (12.0-16.0); Immature Granulocytes Absolute 0.43 #; Lymphocytes # 1.1 10*3/uL (1.4-4.0); Lymphocytes % 9.8 % (21.3-54.2); Mean Corpuscular HGB Conc 30.2 GM/DL (32-36); Mean Corpuscular Hemoglobin 29 PG (27-34); Mean Platelet Volume 10.1 FL (9.6-12.0); Monocytes # 0.8 10*3/uL (0.11-0.8); Monocytes % 7.5 % (1.7-12.7); NRBC # 0.02 10*3/uL; Neutrophils # 2.4 10*3/uL (1.4-7.4); Neutrophils % 21.6 % (38.7-73.9); Platelet Count 297 T/CUMM (130-400); Red Blood Count 3.41 MC/CUMM (3.8-5.5); White Blood Count 10.9 T/CUMM (4-12)
[2018-04-22 06:30] LABS: INR 1.1
[2018-04-22 06:48] LABS: Eosinophils 60 % (0-10); Hypochromasia 1+; Lymphocytes 9 % (20-55); Nucleated Red Blood Cells 1 (0-5); Platelet Estimate Adequate; Segmented Neutrophils 21 % (50-85); Total Cells Counted 100
[2018-04-22 06:49] LABS: Microcytosis Slight; Ovalocytes Slight
[2018-04-22 06:52] LABS: Calcium 7.3 MG/DL (8.5-10.1); Osmolality,Calculated 288.7 MOS/KG (273-304); Potassium 3.7 MMOL/L (3.5-5.1)
[2018-04-22] MEDS: hydrOXYzine HCL 10 MG TABLET PO SCH ×4 (09:38→21:36)
[2018-04-22] MEDS: MULTIVITAMIN (CENTRUM) TABLET PO SCH (09:38)
[2018-04-22] MEDS: DICYCLOMINE 10 MG CAPSULE PO SCH ×2 (09:38→21:36)
[2018-04-22] MEDS: amLODIPine 5 MG TABLET PO SCH (09:39)
[2018-04-22] MEDS: VENLAFAXINE XR 37.5 MG CAPSULE PO SCH (09:39)
[2018-04-22] MEDS: CALCIUM (CARBONATE) 500 MG TABLET PO SCH (09:39)
[2018-04-22] MEDS: GABAPENTIN 400 MG CAPSULE PO SCH ×4 (09:39→21:36)
[2018-04-22] MEDS: LEVOFLOXACIN 500 MG TABLET PO SCH (09:39)
[2018-04-22] MEDS: FLECAINIDE 50 MG TABLET PO SCH ×2 (09:40→21:36)
[2018-04-22] MEDS: FAMOTIDINE 20 MG TABLET PO SCH ×2 (09:40→21:36)
[2018-04-22] MEDS: ENOXAPARIN 40 MG/0.4 ML SYRINGE SUBCUT SCH (09:41)
[2018-04-22] MEDS: THEOPHYLLINE ER 300 MG TABLET PO SCH (09:41)
[2018-04-22] MEDS: CHOLECALCIFEROL 400 UNIT TABLET PO SCH (09:41)
[2018-04-22] MEDS: LABETALOL 100 MG TABLET PO SCH ×2 (09:41→21:36)
[2018-04-22] MEDS: BETAMETHASONE VALERATE 0.1% CREAM 15 GM TUBE TOP SCH ×2 (10:18→21:36)
[2018-04-22] MEDS: ALBUTEROL/IPRATROPIUM 3 ML NEB RESP TX PRN (14:43)
[2018-04-22] MEDS ORDERED: WARFARIN 5 MG TABLET PO SCH (18:00)
[2018-04-22] MEDS: LEFLUNOMIDE 10 MG TABLET PO SCH (21:36)
[2018-04-22] MEDS: MONTELUKAST 10 MG TABLET PO SCH (21:36)
[2018-04-23] MEDS: LEVOTHYROXINE 125 MCG TABLET PO SCH (06:00)
[2018-04-23 07:31] LABS: INR 1.1; PT Patient Result 11.7 SECS
[2018-04-23] MEDS: MULTIVITAMIN (CENTRUM) TABLET PO SCH (09:07)
[2018-04-23] MEDS: DICYCLOMINE 10 MG CAPSULE PO SCH ×2 (09:07→20:17)
[2018-04-23] MEDS: hydrOXYzine HCL 10 MG TABLET PO SCH ×4 (09:07→20:16)
[2018-04-23] MEDS: VENLAFAXINE XR 37.5 MG CAPSULE PO SCH (09:07)
[2018-04-23] MEDS: LEVOFLOXACIN 500 MG TABLET PO SCH (09:08)
[2018-04-23] MEDS: GABAPENTIN 400 MG CAPSULE PO SCH ×4 (09:08→20:16)
[2018-04-23] MEDS: amLODIPine 5 MG TABLET PO SCH (09:08)
[2018-04-23] MEDS: THEOPHYLLINE ER 300 MG TABLET PO SCH (09:09)
[2018-04-23] MEDS: CHOLECALCIFEROL 400 UNIT TABLET PO SCH (09:09)
[2018-04-23] MEDS: FLECAINIDE 50 MG TABLET PO SCH ×2 (09:09→20:16)
[2018-04-23] MEDS: LABETALOL 100 MG TABLET PO SCH ×2 (09:09→20:17)
[2018-04-23] MEDS: CALCIUM (CARBONATE) 500 MG TABLET PO SCH (09:09)
[2018-04-23] MEDS: FAMOTIDINE 20 MG TABLET PO SCH ×2 (09:09→20:17)
[2018-04-23] MEDS: ENOXAPARIN 40 MG/0.4 ML SYRINGE SUBCUT SCH (09:10)
[2018-04-23] MEDS: ALBUTEROL 2.5 MG/3 ML NEB RESP TX PRN ×4 (09:30→19:22)
[2018-04-23] MEDS ORDERED: MORPHINE 4 MG/1 ML VIAL IV PRN (10:49)
[2018-04-23] MEDS: methylPREDNISolone SOD SUC 40 MG/1 ML VIAL IV SCH (12:25)
[2018-04-23] MEDS: FUROSEMIDE 40 MG/4 ML VIAL IV SCH (12:29)
[2018-04-23] MEDS: BETAMETHASONE VALERATE 0.1% CREAM 15 GM TUBE TOP SCH ×2 (13:54→20:18)
[2018-04-23] MEDS: WARFARIN 2.5 MG TABLET PO SCH (17:24)
[2018-04-23] MEDS: LEFLUNOMIDE 10 MG TABLET PO SCH (20:17)
[2018-04-23] MEDS: MONTELUKAST 10 MG TABLET PO SCH (20:17)
[2018-04-24] MEDS: methylPREDNISolone SOD SUC 40 MG/1 ML VIAL IV SCH ×2 (00:40→12:50)
[2018-04-24 06:27] LABS: Basophils # 0.1 10*3/uL (0.0-0.2); Basophils % 1.1 % (0.0-0.8); Eosinophils # 0.1 10*3/uL (0.0-0.87); Eosinophils % 1.6 % (0.00-10.9); Hematocrit 29.7 VOL% (35.7-47.0); Hemoglobin 9.4 GM/DL (12.0-16.0); Immature Granulocytes % 5.8 %; Immature Granulocytes Absolute 0.37 #; Lymphocytes # 0.8 10*3/uL (1.4-4.0); Lymphocytes % 12.8 % (21.3-54.2); Mean Corpuscular HGB Conc 31.6 GM/DL (32-36); Mean Corpuscular Hemoglobin 29 PG (27-34); Mean Corpuscular Volume 91.1 FL (87-102); Mean Platelet Volume 10.5 FL (9.6-12.0); Monocytes # 0.3 10*3/uL (0.11-0.8); Monocytes % 4.5 % (1.7-12.7); NRBC # 0.03 10*3/uL; Neutrophils # 4.8 10*3/uL (1.4-7.4); Neutrophils % 74.2 % (38.7-73.9); Platelet Count 334 T/CUMM (130-400); Red Blood Count 3.26 MC/CUMM (3.8-5.5); Red Cell Distribution Width 19.1 % (9.3-17.3); White Blood Count 6.4 T/CUMM (4-12)
[2018-04-24 06:32] LABS: INR 1.1; PT Patient Result 11.5 SECS
[2018-04-24 06:36] LABS: Calcium 7.5 MG/DL (8.5-10.1); Osmolality,Calculated 294.6 MOS/KG (273-304); Potassium 3.7 MMOL/L (3.5-5.1)
[2018-04-24 07:01] LABS: Band Neutrophils 38 % (0-10); Eosinophils 2 % (0-10); Lymphocytes 11 % (20-55); Nucleated Red Blood Cells 1 (0-5); Platelet Estimate Normal; Segmented Neutrophils 46 % (50-85); Total Cells Counted 100
[2018-04-24 07:02] LABS: Anisocytosis 1+; Poikilocytosis 1+; Polychromasia Slight; Smudge Cells Many
[2018-04-24 07:03] LABS: Macrocytosis Slight; Target Cells Few
[2018-04-24] MEDS: LEVOTHYROXINE 125 MCG TABLET PO SCH (07:03)
[2018-04-24] MEDS: THEOPHYLLINE ER 300 MG TABLET PO SCH (09:19)
[2018-04-24] MEDS: LABETALOL 100 MG TABLET PO SCH (09:19)
[2018-04-24] MEDS: VENLAFAXINE XR 37.5 MG CAPSULE PO SCH (09:19)
[2018-04-24] MEDS: CHOLECALCIFEROL 400 UNIT TABLET PO SCH (09:19)
[2018-04-24] MEDS: DICYCLOMINE 10 MG CAPSULE PO SCH (09:19)
[2018-04-24] MEDS: MULTIVITAMIN (CENTRUM) TABLET PO SCH (09:19)
[2018-04-24] MEDS: FLECAINIDE 50 MG TABLET PO SCH (09:19)
[2018-04-24] MEDS: FAMOTIDINE 20 MG TABLET PO SCH (09:20)
[2018-04-24] MEDS: LEVOFLOXACIN 500 MG TABLET PO SCH (09:20)
[2018-04-24] MEDS: GABAPENTIN 400 MG CAPSULE PO SCH ×2 (09:20→12:55)
[2018-04-24] MEDS: CALCIUM (CARBONATE) 500 MG TABLET PO SCH (09:23)
[2018-04-24] MEDS: ENOXAPARIN 40 MG/0.4 ML SYRINGE SUBCUT SCH (09:23)
[2018-04-24] MEDS: hydrOXYzine HCL 10 MG TABLET PO SCH ×2 (09:23→12:55)
[2018-04-24] MEDS: amLODIPine 5 MG TABLET PO SCH (09:23)
[2018-04-24] MEDS: FUROSEMIDE 40 MG/4 ML VIAL IV SCH (09:24)
[2018-04-24] MEDS: ALBUTEROL 2.5 MG/3 ML NEB RESP TX PRN (10:40)
[2018-04-24 11:38] VITALS: BP 148/70
[2018-04-24] MEDS: BETAMETHASONE VALERATE 0.1% CREAM 15 GM TUBE TOP SCH (12:56)
[2018-04-24] MEDS ORDERED: WARFARIN 3 MG TABLET PO SCH (18:00)
[2018-04-25] MEDS ORDERED: WARFARIN 5 MG TABLET PO SCH (18:00)
== END 2018-04-24 14:50 | disposition swing bed (61) | DRG 871 ==
LOC: EDBD → EDUNIT# → N.ED 06:53 → SUATTDRO 09:20 → N.EDINP 09:20 → N.3E 12:01
PROVIDERS: ATTEND Internal Medicine

== ENCOUNTER 2018-05-02 14:08 | Inpatient (IN) ==
[2018-05-02 15:28] LABS: Basophils # 0.1 10*3/uL (0.0-0.2); Basophils % 0.7 % (0.0-0.8); Eosinophils # 1.1 10*3/uL (0.0-0.87); Eosinophils % 7.6 % (0.00-10.9); Hematocrit 30.7 VOL% (35.7-47.0); Hemoglobin 9.7 GM/DL (12.0-16.0); Immature Granulocytes % 0.9 %; Immature Granulocytes Absolute 0.14 #; Lymphocytes # 0.8 10*3/uL (1.4-4.0); Lymphocytes % 5.5 % (21.3-54.2); Mean Corpuscular HGB Conc 31.6 GM/DL (32-36); Mean Corpuscular Hemoglobin 29 PG (27-34); Mean Corpuscular Volume 91.9 FL (87-102); Mean Platelet Volume 10.9 FL (9.6-12.0); Monocytes # 1.4 10*3/uL (0.11-0.8); Monocytes % 9.4 % (1.7-12.7); NRBC # 0.02 10*3/uL; Neutrophils # 11.2 10*3/uL (1.4-7.4); Neutrophils % 75.9 % (38.7-73.9); Platelet Count 235 T/CUMM (130-400); Red Blood Count 3.34 MC/CUMM (3.8-5.5); Red Cell Distribution Width 18.9 % (9.3-17.3); White Blood Count 14.8 T/CUMM (4-12)
[2018-05-02 15:43] LABS: INR 2.1
[2018-05-02 15:53] LABS: Albumin 2.8 G/DL (3.4-5.0); Bilirubin,Total 0.9 MG/DL (0.2-1.0); Calcium 6.5 MG/DL (8.5-10.1); Osmolality,Calculated 283.3 MOS/KG (273-304); Potassium 3.6 MMOL/L (3.5-5.1)
[2018-05-02 16:06] LABS: PT Patient Result 21.2 SECS
[2018-05-02] MEDS ORDERED: ONDANSETRON 4 MG/2 ML VIAL IV PRN (17:27)
[2018-05-02] MEDS ORDERED: guaiFENesin/DM ER 600-30 MG TABLET PO PRN (17:27)
[2018-05-02] MEDS ORDERED: ACETAMINOPHEN 325 MG TABLET PO PRN ×2 (17:27→17:31)
[2018-05-02] MEDS ORDERED: PROMETHAZINE 25 MG/1 ML VIAL IM PRN (17:27)
[2018-05-02] MEDS ORDERED: ALBUTEROL 2.5 MG/3 ML NEB RESP TX PRN (17:30)
[2018-05-02] MEDS ORDERED: NON-FORMULARY MEDICATION (Albuterol Sulfate [Ventolin Hfa] 2 PUFF) INH PRN (17:31)
[2018-05-02] MEDS ORDERED: traMADol 50 MG TABLET PO PRN (17:31)
[2018-05-02] MEDS ORDERED: diphenhydrAMINE CAP 25 MG CAPSULE PO PRN (17:31)
[2018-05-02 17:49] LABS: Apearance,Urine CLEAR (Clear); Bilirubin,Urine Negative (Negative); Blood, Urine Negative (Negative); Glucose,Urine (UA) Negative (Negative); Ketones,Urine Negative (Negative); Mucus,Urine Occasional /LPF (Occasional); Nitrite,Urine Negative (Negative); Protein,Urine Negative; RBC,Urine 1 /HPF (0-4); Urine Color Yellow (Yellow); Urine Specific Gravity 1.011 (1.001-1.035); Urine Urobilinogen < 2.0 EU/DL (0.2-1.0)
[2018-05-02] MEDS ORDERED: cefTRIAXone 1,000 MG in SODIUM CHLORIDE 0.9% 100 ML IV SCH (18:00)
[2018-05-02] MEDS ORDERED: AZITHROMYCIN INJ 500 MG in SODIUM CHLORIDE 0.9% 250 ML IV SCH (18:00)
[2018-05-02] MEDS ORDERED: ALBUTEROL/IPRATROPIUM 3 ML NEB RESP TX SCH (19:00)
[2018-05-02] MEDS: SODIUM CHLORIDE 0.9% 1,000 ML IV SCH (20:06)
[2018-05-02] MEDS: LEVOFLOXACIN INJ 750 MG in PREMIX 1 EACH IV SCH (20:08)
[2018-05-02] MEDS: methylPREDNISolone SOD SUC 40 MG/1 ML VIAL IV SCH (20:08)
[2018-05-02] MEDS: ALBUTEROL/IPRATROPIUM 3 ML NEB RESP TX SCH (21:44)
[2018-05-02] MEDS: FLECAINIDE 50 MG TABLET PO SCH (23:01)
[2018-05-02] MEDS: FUROSEMIDE 20 MG TABLET PO SCH (23:02)
[2018-05-02] MEDS: GABAPENTIN 400 MG CAPSULE PO SCH (23:02)
[2018-05-02] MEDS: hydrOXYzine HCL 10 MG TABLET PO SCH (23:02)
[2018-05-02] MEDS: LABETALOL 200 MG TABLET PO SCH (23:02)
[2018-05-02] MEDS: FAMOTIDINE 20 MG TABLET PO SCH (23:02)
[2018-05-02] MEDS: DICYCLOMINE 10 MG CAPSULE PO SCH (23:02)
[2018-05-02] MEDS: MONTELUKAST 10 MG TABLET PO SCH (23:02)
[2018-05-02] MEDS: BETAMETHASONE VALERATE 0.1% CREAM 15 GM TUBE TOP SCH (23:03)
[2018-05-02] MEDS: amLODIPine 5 MG TABLET PO SCH (23:03)
[2018-05-03] MEDS: WARFARIN 5 MG TABLET PO SCH ×2 (00:22→17:03)
[2018-05-03] MEDS: ALBUTEROL/IPRATROPIUM 3 ML NEB RESP TX SCH ×4 (00:28→19:46)
[2018-05-03] MEDS: VANCOMYCIN INJ 1,500 MG in SODIUM CHLORIDE 0.9% 500 ML IV SCH ×2 (00:35→09:01)
[2018-05-03] MEDS: traZODone 50 MG TABLET PO PRN (00:55)
[2018-05-03] MEDS: SODIUM CHLORIDE 0.9% 1,000 ML IV SCH ×4 (03:02→20:57)
[2018-05-03 05:16] LABS: Basophils # 0.1 10*3/uL (0.0-0.2); Basophils % 0.4 % (0.0-0.8); Eosinophils % 0.3 % (0.00-10.9); Hematocrit 29.9 VOL% (35.7-47.0); Hemoglobin 9.5 GM/DL (12.0-16.0); Immature Granulocytes % 1.4 %; Immature Granulocytes Absolute 0.19 #; Lymphocytes # 0.6 10*3/uL (1.4-4.0); Lymphocytes % 4.1 % (21.3-54.2); Mean Corpuscular HGB Conc 31.8 GM/DL (32-36); Mean Corpuscular Hemoglobin 29 PG (27-34); Mean Platelet Volume 11.1 FL (9.6-12.0); Monocytes # 0.4 10*3/uL (0.11-0.8); Monocytes % 2.9 % (1.7-12.7); Neutrophils # 12.4 10*3/uL (1.4-7.4); Neutrophils % 90.9 % (38.7-73.9); Platelet Count 211 T/CUMM (130-400); Red Blood Count 3.25 MC/CUMM (3.8-5.5); Red Cell Distribution Width 18.5 % (9.3-17.3); White Blood Count 13.7 T/CUMM (4-12)
[2018-05-03 06:03] LABS: Calcium 6.5 MG/DL (8.5-10.1); Osmolality,Calculated 288.1 MOS/KG (273-304); Potassium 3.7 MMOL/L (3.5-5.1); Thyroid Stimulating Hormone 0.819 uIU/ml (0.358-3.74)
[2018-05-03] MEDS: LEVOTHYROXINE 125 MCG TABLET PO SCH (06:42)
[2018-05-03] MEDS: methylPREDNISolone SOD SUC 40 MG/1 ML VIAL IV SCH ×2 (08:54→20:58)
[2018-05-03] MEDS: DICYCLOMINE 10 MG CAPSULE PO SCH ×2 (08:56→21:00)
[2018-05-03] MEDS: hydrOXYzine HCL 10 MG TABLET PO SCH ×4 (08:56→21:00)
[2018-05-03] MEDS: VENLAFAXINE XR 37.5 MG CAPSULE PO SCH (08:57)
[2018-05-03] MEDS: FUROSEMIDE 20 MG TABLET PO SCH ×2 (08:57→20:59)
[2018-05-03] MEDS: GABAPENTIN 400 MG CAPSULE PO SCH ×4 (08:58→20:59)
[2018-05-03] MEDS: amLODIPine 5 MG TABLET PO SCH ×2 (08:58→20:59)
[2018-05-03] MEDS: CALCIUM (CARBONATE) 500 MG TABLET PO SCH (08:59)
[2018-05-03] MEDS: FAMOTIDINE 20 MG TABLET PO SCH ×2 (08:59→20:59)
[2018-05-03] MEDS: PANTOPRAZOLE 40 MG TABLET PO SCH (09:00)
[2018-05-03] MEDS: FLECAINIDE 50 MG TABLET PO SCH ×2 (09:00→20:59)
[2018-05-03] MEDS: THEOPHYLLINE ER 300 MG TABLET PO SCH (09:01)
[2018-05-03] MEDS: BETAMETHASONE VALERATE 0.1% CREAM 15 GM TUBE TOP SCH ×2 (09:01→21:00)
[2018-05-03] MEDS: LABETALOL 200 MG TABLET PO SCH ×2 (09:01→21:00)
[2018-05-03] MEDS: CHOLECALCIFEROL 400 UNIT TABLET PO SCH (09:01)
[2018-05-03 09:45] LABS: Lymphocytes 2 % (20-55); Segmented Neutrophils 98 % (50-85); Total Cells Counted 100
[2018-05-03] MEDS: MONTELUKAST 10 MG TABLET PO SCH (21:00)
[2018-05-04] MEDS: VANCOMYCIN INJ 1,500 MG in SODIUM CHLORIDE 0.9% 500 ML IV SCH ×2 (00:54→08:44)
[2018-05-04] MEDS: ALBUTEROL/IPRATROPIUM 3 ML NEB RESP TX SCH ×4 (01:16→20:30)
[2018-05-04] MEDS: SODIUM CHLORIDE 0.9% 1,000 ML IV SCH ×3 (03:00→19:01)
[2018-05-04 05:08] LABS: Basophils % 0.1 % (0.0-0.8); Eosinophils % 0.1 % (0.00-10.9); Hematocrit 29.5 VOL% (35.7-47.0); Hemoglobin 9.2 GM/DL (12.0-16.0); Immature Granulocytes Absolute 0.14 #; Lymphocytes # 0.5 10*3/uL (1.4-4.0); Lymphocytes % 3.6 % (21.3-54.2); Mean Corpuscular HGB Conc 31.2 GM/DL (32-36); Mean Corpuscular Hemoglobin 29 PG (27-34); Mean Corpuscular Volume 92.8 FL (87-102); Monocytes # 0.6 10*3/uL (0.11-0.8); Monocytes % 4.1 % (1.7-12.7); Neutrophils # 13.2 10*3/uL (1.4-7.4); Neutrophils % 91.1 % (38.7-73.9); Platelet Count 207 T/CUMM (130-400); Red Blood Count 3.18 MC/CUMM (3.8-5.5); Red Cell Distribution Width 18.5 % (9.3-17.3); White Blood Count 14.5 T/CUMM (4-12)
[2018-05-04 05:15] LABS: INR 1.7; PT Patient Result 17.5 SECS
[2018-05-04 05:43] LABS: Calcium 6.5 MG/DL (8.5-10.1); Osmolality,Calculated 295.7 MOS/KG (273-304); Potassium 3.7 MMOL/L (3.5-5.1)
[2018-05-04 05:45] LABS: Band Neutrophils 1 % (0-10); Hypochromasia 1+; Lymphocytes 5 % (20-55); Microcytosis 1+; Ovalocytes Slight; Segmented Neutrophils 89 % (50-85); Total Cells Counted 100
[2018-05-04] MEDS: LEVOTHYROXINE 125 MCG TABLET PO SCH (06:08)
[2018-05-04] MEDS: GABAPENTIN 400 MG CAPSULE PO SCH ×4 (08:46→20:34)
[2018-05-04] MEDS: FLECAINIDE 50 MG TABLET PO SCH ×2 (08:46→20:35)
[2018-05-04] MEDS: THEOPHYLLINE ER 300 MG TABLET PO SCH (08:46)
[2018-05-04] MEDS: CHOLECALCIFEROL 400 UNIT TABLET PO SCH (08:46)
[2018-05-04] MEDS: DICYCLOMINE 10 MG CAPSULE PO SCH ×2 (08:46→20:35)
[2018-05-04] MEDS: CALCIUM (CARBONATE) 500 MG TABLET PO SCH (08:47)
[2018-05-04] MEDS: amLODIPine 5 MG TABLET PO SCH ×2 (08:47→20:34)
[2018-05-04] MEDS: LABETALOL 200 MG TABLET PO SCH ×2 (08:47→20:35)
[2018-05-04] MEDS: hydrOXYzine HCL 10 MG TABLET PO SCH ×4 (08:47→20:35)
[2018-05-04] MEDS: PANTOPRAZOLE 40 MG TABLET PO SCH (08:48)
[2018-05-04] MEDS: methylPREDNISolone SOD SUC 40 MG/1 ML VIAL IV SCH ×2 (08:48→21:52)
[2018-05-04] MEDS: diphenhydrAMINE 2% CREAM 28 GM TUBE TOP PRN (08:48)
[2018-05-04] MEDS: FAMOTIDINE 20 MG TABLET PO SCH ×2 (08:48→20:34)
[2018-05-04] MEDS: FUROSEMIDE 20 MG TABLET PO SCH ×2 (08:48→20:35)
[2018-05-04] MEDS: BETAMETHASONE VALERATE 0.1% CREAM 15 GM TUBE TOP SCH ×2 (08:49→23:24)
[2018-05-04] MEDS: VENLAFAXINE XR 37.5 MG CAPSULE PO SCH (11:08)
[2018-05-04] MEDS ORDERED: guaiFENesin 200 MG/10 ML UDCUP PO PRN (15:05)
[2018-05-04] MEDS: WARFARIN 5 MG TABLET PO SCH (18:26)
[2018-05-04] MEDS: MONTELUKAST 10 MG TABLET PO SCH (20:34)
[2018-05-04] MEDS: traZODone 50 MG TABLET PO PRN (20:35)
[2018-05-04] MEDS: LEVOFLOXACIN INJ 750 MG in PREMIX 1 EACH IV SCH (20:36)
[2018-05-05] MEDS: ALBUTEROL/IPRATROPIUM 3 ML NEB RESP TX SCH ×4 (00:09→19:14)
[2018-05-05 04:25] LABS: Basophils % 0.1 % (0.0-0.8); Hematocrit 28.5 VOL% (35.7-47.0); Hemoglobin 8.8 GM/DL (12.0-16.0); Immature Granulocytes % 1.4 %; Immature Granulocytes Absolute 0.17 #; Lymphocytes # 0.4 10*3/uL (1.4-4.0); Lymphocytes % 3.4 % (21.3-54.2); Mean Corpuscular HGB Conc 30.9 GM/DL (32-36); Mean Corpuscular Hemoglobin 29 PG (27-34); Mean Corpuscular Volume 93.4 FL (87-102); Monocytes # 0.7 10*3/uL (0.11-0.8); Monocytes % 5.9 % (1.7-12.7); NRBC # 0.02 10*3/uL; Neutrophils # 11.1 10*3/uL (1.4-7.4); Neutrophils % 89.2 % (38.7-73.9); Platelet Count 236 T/CUMM (130-400); Red Blood Count 3.05 MC/CUMM (3.8-5.5); Red Cell Distribution Width 18.6 % (9.3-17.3); White Blood Count 12.5 T/CUMM (4-12)
[2018-05-05 04:55] LABS: Calcium 6.5 MG/DL (8.5-10.1); Osmolality,Calculated 298.4 MOS/KG (273-304)
[2018-05-05 05:15] LABS: Lymphocytes 2 % (20-55); Segmented Neutrophils 94 % (50-85)
[2018-05-05 05:16] LABS: Hypochromasia 1+; Microcytosis 1+; Ovalocytes 1+
[2018-05-05 05:17] LABS: Total Cells Counted 100
[2018-05-05] MEDS: LEVOTHYROXINE 125 MCG TABLET PO SCH (06:23)
[2018-05-05] MEDS: CHOLECALCIFEROL 400 UNIT TABLET PO SCH (08:37)
[2018-05-05] MEDS: FLECAINIDE 50 MG TABLET PO SCH ×2 (08:37→21:25)
[2018-05-05] MEDS: DICYCLOMINE 10 MG CAPSULE PO SCH ×2 (08:37→21:25)
[2018-05-05] MEDS: VENLAFAXINE XR 37.5 MG CAPSULE PO SCH (08:37)
[2018-05-05] MEDS: THEOPHYLLINE ER 300 MG TABLET PO SCH (08:37)
[2018-05-05] MEDS: FAMOTIDINE 20 MG TABLET PO SCH ×2 (08:37→21:25)
[2018-05-05] MEDS: hydrOXYzine HCL 10 MG TABLET PO SCH ×4 (08:37→21:25)
[2018-05-05] MEDS: FUROSEMIDE 20 MG TABLET PO SCH ×2 (08:38→21:25)
[2018-05-05] MEDS: GABAPENTIN 400 MG CAPSULE PO SCH ×4 (08:38→21:24)
[2018-05-05] MEDS: LABETALOL 200 MG TABLET PO SCH ×2 (08:38→21:24)
[2018-05-05] MEDS: methylPREDNISolone SOD SUC 40 MG/1 ML VIAL IV SCH ×2 (08:38→20:34)
[2018-05-05] MEDS: CALCIUM (CARBONATE) 500 MG TABLET PO SCH (08:38)
[2018-05-05] MEDS: amLODIPine 5 MG TABLET PO SCH ×2 (08:38→21:25)
[2018-05-05] MEDS: PANTOPRAZOLE 40 MG TABLET PO SCH (08:38)
[2018-05-05] MEDS: BETAMETHASONE VALERATE 0.1% CREAM 15 GM TUBE TOP SCH ×2 (08:47→21:30)
[2018-05-05] MEDS: diphenhydrAMINE 2% CREAM 28 GM TUBE TOP PRN (08:47)
[2018-05-05] MEDS: WARFARIN 5 MG TABLET PO SCH (17:00)
[2018-05-05] MEDS: traZODone 50 MG TABLET PO PRN (21:24)
[2018-05-05] MEDS: MONTELUKAST 10 MG TABLET PO SCH (21:24)
[2018-05-06] MEDS: ALBUTEROL/IPRATROPIUM 3 ML NEB RESP TX SCH ×4 (00:45→19:17)
[2018-05-06] MEDS: LEVOTHYROXINE 125 MCG TABLET PO SCH (05:59)
[2018-05-06 06:11] LABS: Basophils % 0.2 % (0.0-0.8); Hematocrit 31.1 VOL% (35.7-47.0); Hemoglobin 9.3 GM/DL (12.0-16.0); Immature Granulocytes % 1.9 %; Lymphocytes # 0.4 10*3/uL (1.4-4.0); Mean Corpuscular HGB Conc 29.9 GM/DL (32-36); Mean Corpuscular Hemoglobin 29 PG (27-34); Mean Corpuscular Volume 96.9 FL (87-102); Mean Platelet Volume 10.6 FL (9.6-12.0); Monocytes # 0.9 10*3/uL (0.11-0.8); Monocytes % 8.8 % (1.7-12.7); Neutrophils # 8.8 10*3/uL (1.4-7.4); Neutrophils % 85.1 % (38.7-73.9); Platelet Count 261 T/CUMM (130-400); Red Blood Count 3.21 MC/CUMM (3.8-5.5); Red Cell Distribution Width 18.3 % (9.3-17.3); White Blood Count 10.3 T/CUMM (4-12)
[2018-05-06 06:26] LABS: Band Neutrophils 2 % (0-10); Hypochromasia 1+; Lymphocytes 4 % (20-55); Platelet Estimate Adequate; Segmented Neutrophils 85 % (50-85); Total Cells Counted 100
[2018-05-06 06:27] LABS: Microcytosis 1+
[2018-05-06 06:30] LABS: Calcium 6.3 MG/DL (8.5-10.1); Osmolality,Calculated 298.7 MOS/KG (273-304); Potassium 3.8 MMOL/L (3.5-5.1)
[2018-05-06] MEDS: DICYCLOMINE 10 MG CAPSULE PO SCH ×2 (08:29→21:20)
[2018-05-06] MEDS: GABAPENTIN 400 MG CAPSULE PO SCH ×4 (08:29→21:20)
[2018-05-06] MEDS: CALCIUM (CARBONATE) 500 MG TABLET PO SCH (08:29)
[2018-05-06] MEDS: CHOLECALCIFEROL 400 UNIT TABLET PO SCH (08:29)
[2018-05-06] MEDS: FLECAINIDE 50 MG TABLET PO SCH ×2 (08:29→21:21)
[2018-05-06] MEDS: VENLAFAXINE XR 37.5 MG CAPSULE PO SCH (08:29)
[2018-05-06] MEDS: FUROSEMIDE 20 MG TABLET PO SCH ×2 (08:29→21:21)
[2018-05-06] MEDS: LEVOFLOXACIN 750 MG TABLET PO SCH (08:29)
[2018-05-06] MEDS: THEOPHYLLINE ER 300 MG TABLET PO SCH (08:30)
[2018-05-06] MEDS: amLODIPine 5 MG TABLET PO SCH ×2 (08:30→21:21)
[2018-05-06] MEDS: PANTOPRAZOLE 40 MG TABLET PO SCH (08:30)
[2018-05-06] MEDS: hydrOXYzine HCL 10 MG TABLET PO SCH ×4 (08:30→21:21)
[2018-05-06] MEDS: LABETALOL 200 MG TABLET PO SCH ×2 (08:30→21:21)
[2018-05-06] MEDS: FAMOTIDINE 20 MG TABLET PO SCH ×2 (08:30→21:21)
[2018-05-06] MEDS: methylPREDNISolone SOD SUC 40 MG/1 ML VIAL IV SCH ×2 (08:32→21:19)
[2018-05-06] MEDS: BETAMETHASONE VALERATE 0.1% CREAM 15 GM TUBE TOP SCH ×2 (08:32→21:24)
[2018-05-06] MEDS: WARFARIN 5 MG TABLET PO SCH (17:27)
[2018-05-06] MEDS: MONTELUKAST 10 MG TABLET PO SCH (21:20)
[2018-05-06] MEDS: VANCOMYCIN INJ 1,250 MG in SODIUM CHLORIDE 0.9% 250 ML IV SCH (21:41)
[2018-05-07] MEDS: ALBUTEROL/IPRATROPIUM 3 ML NEB RESP TX SCH ×4 (00:08→19:21)
[2018-05-07 05:44] LABS: Basophils % 0.2 % (0.0-0.8); Hematocrit 32.2 VOL% (35.7-47.0); Hemoglobin 9.9 GM/DL (12.0-16.0); Immature Granulocytes % 2.6 %; Immature Granulocytes Absolute 0.26 #; Lymphocytes # 0.3 10*3/uL (1.4-4.0); Mean Corpuscular HGB Conc 30.7 GM/DL (32-36); Mean Corpuscular Hemoglobin 29 PG (27-34); Mean Corpuscular Volume 93.3 FL (87-102); Monocytes # 0.7 10*3/uL (0.11-0.8); Monocytes % 7.2 % (1.7-12.7); NRBC # 0.03 10*3/uL; Neutrophils # 8.9 10*3/uL (1.4-7.4); Platelet Count 289 T/CUMM (130-400); Red Blood Count 3.45 MC/CUMM (3.8-5.5); Red Cell Distribution Width 18.1 % (9.3-17.3); White Blood Count 10.2 T/CUMM (4-12)
[2018-05-07 05:57] LABS: INR 3.1
[2018-05-07 06:03] LABS: PT Patient Result 31.1 SECS
[2018-05-07 06:05] LABS: Giant Platelets Few; Hypochromasia 1+; Lymphocytes 1 % (20-55); Microcytosis Slight; Nucleated Red Blood Cells 1 (0-5); Ovalocytes Slight; Platelet Estimate Adequate; Segmented Neutrophils 93 % (50-85); Total Cells Counted 100
[2018-05-07] MEDS: LEVOTHYROXINE 125 MCG TABLET PO SCH (06:15)
[2018-05-07] MEDS: FAMOTIDINE 20 MG TABLET PO SCH ×2 (09:12→20:33)
[2018-05-07] MEDS: FLECAINIDE 50 MG TABLET PO SCH ×2 (09:12→20:33)
[2018-05-07] MEDS: CALCIUM (CARBONATE) 500 MG TABLET PO SCH (09:12)
[2018-05-07] MEDS: LABETALOL 200 MG TABLET PO SCH ×2 (09:12→20:32)
[2018-05-07] MEDS: FUROSEMIDE 20 MG TABLET PO SCH (09:12)
[2018-05-07] MEDS: GABAPENTIN 400 MG CAPSULE PO SCH ×4 (09:12→20:32)
[2018-05-07] MEDS: DICYCLOMINE 10 MG CAPSULE PO SCH ×2 (09:12→20:32)
[2018-05-07] MEDS: hydrOXYzine HCL 10 MG TABLET PO SCH ×4 (09:12→20:33)
[2018-05-07] MEDS: CHOLECALCIFEROL 400 UNIT TABLET PO SCH (09:12)
[2018-05-07] MEDS: VENLAFAXINE XR 37.5 MG CAPSULE PO SCH (09:12)
[2018-05-07] MEDS: PANTOPRAZOLE 40 MG TABLET PO SCH (09:12)
[2018-05-07] MEDS: amLODIPine 5 MG TABLET PO SCH ×2 (09:12→20:33)
[2018-05-07] MEDS: THEOPHYLLINE ER 300 MG TABLET PO SCH (09:12)
[2018-05-07] MEDS: methylPREDNISolone SOD SUC 40 MG/1 ML VIAL IV SCH ×2 (09:13→20:34)
[2018-05-07] MEDS: BETAMETHASONE VALERATE 0.1% CREAM 15 GM TUBE TOP SCH ×2 (09:13→20:39)
[2018-05-07] MEDS: FUROSEMIDE 40 MG/4 ML VIAL IV SCH (16:10)
[2018-05-07] MEDS: MONTELUKAST 10 MG TABLET PO SCH (20:32)
[2018-05-08] MEDS: ALBUTEROL/IPRATROPIUM 3 ML NEB RESP TX SCH ×4 (02:32→19:42)
[2018-05-08] MEDS: LEVOTHYROXINE 125 MCG TABLET PO SCH (05:40)
[2018-05-08 07:29] LABS: Calcium 6.4 MG/DL (8.5-10.1); Osmolality,Calculated 289.5 MOS/KG (273-304)
[2018-05-08] MEDS: hydrOXYzine HCL 10 MG TABLET PO SCH ×4 (09:00→20:55)
[2018-05-08] MEDS: DICYCLOMINE 10 MG CAPSULE PO SCH ×2 (09:00→20:55)
[2018-05-08] MEDS: FAMOTIDINE 20 MG TABLET PO SCH ×2 (09:00→20:56)
[2018-05-08] MEDS: PANTOPRAZOLE 40 MG TABLET PO SCH (09:00)
[2018-05-08] MEDS: FLECAINIDE 50 MG TABLET PO SCH ×2 (09:00→20:55)
[2018-05-08] MEDS: THEOPHYLLINE ER 300 MG TABLET PO SCH (09:00)
[2018-05-08] MEDS: VENLAFAXINE XR 37.5 MG CAPSULE PO SCH (09:00)
[2018-05-08] MEDS: LEVOFLOXACIN 750 MG TABLET PO SCH (09:00)
[2018-05-08] MEDS: amLODIPine 5 MG TABLET PO SCH ×2 (09:01→20:56)
[2018-05-08] MEDS: GABAPENTIN 400 MG CAPSULE PO SCH ×4 (09:01→20:55)
[2018-05-08] MEDS: CALCIUM (CARBONATE) 500 MG TABLET PO SCH (09:01)
[2018-05-08] MEDS: CHOLECALCIFEROL 400 UNIT TABLET PO SCH (09:01)
[2018-05-08] MEDS: LABETALOL 200 MG TABLET PO SCH ×2 (09:01→20:56)
[2018-05-08] MEDS: FUROSEMIDE 40 MG/4 ML VIAL IV SCH (09:04)
[2018-05-08] MEDS: BETAMETHASONE VALERATE 0.1% CREAM 15 GM TUBE TOP SCH ×2 (09:05→20:58)
[2018-05-08] MEDS: methylPREDNISolone SOD SUC 40 MG/1 ML VIAL IV SCH ×2 (09:09→20:56)
[2018-05-08] MEDS: FUROSEMIDE 20 MG TABLET PO SCH (16:42)
[2018-05-08] MEDS: MONTELUKAST 10 MG TABLET PO SCH (20:55)
[2018-05-08] MEDS: VANCOMYCIN INJ 1,250 MG in SODIUM CHLORIDE 0.9% 250 ML IV SCH (21:46)
[2018-05-09] MEDS: ALBUTEROL/IPRATROPIUM 3 ML NEB RESP TX SCH ×4 (00:53→19:33)
[2018-05-09] MEDS: LEVOTHYROXINE 125 MCG TABLET PO SCH (06:13)
[2018-05-09 06:35] LABS: Calcium 5.9 MG/DL (8.5-10.1); Osmolality,Calculated 298.1 MOS/KG (273-304); Potassium 3.9 MMOL/L (3.5-5.1)
[2018-05-09 06:39] LABS: INR 1.9; PT Patient Result 19.2 SECS
[2018-05-09] MEDS ORDERED: FUROSEMIDE 40 MG/4 ML VIAL IV SCH (09:00)
[2018-05-09] MEDS: FLECAINIDE 50 MG TABLET PO SCH ×2 (09:29→20:48)
[2018-05-09] MEDS: VENLAFAXINE XR 37.5 MG CAPSULE PO SCH (09:29)
[2018-05-09] MEDS: GABAPENTIN 400 MG CAPSULE PO SCH ×4 (09:30→20:41)
[2018-05-09] MEDS: DICYCLOMINE 10 MG CAPSULE PO SCH ×2 (09:30→20:43)
[2018-05-09] MEDS: hydrOXYzine HCL 10 MG TABLET PO SCH ×4 (09:30→20:43)
[2018-05-09] MEDS: amLODIPine 5 MG TABLET PO SCH (09:30)
[2018-05-09] MEDS: CALCIUM (CARBONATE) 500 MG TABLET PO SCH (09:30)
[2018-05-09] MEDS: THEOPHYLLINE ER 300 MG TABLET PO SCH (09:30)
[2018-05-09] MEDS: FAMOTIDINE 20 MG TABLET PO SCH ×2 (09:30→20:41)
[2018-05-09] MEDS: CHOLECALCIFEROL 400 UNIT TABLET PO SCH (09:30)
[2018-05-09] MEDS: FUROSEMIDE 20 MG TABLET PO SCH ×2 (09:30→17:02)
[2018-05-09] MEDS: methylPREDNISolone SOD SUC 40 MG/1 ML VIAL IV SCH (09:31)
[2018-05-09] MEDS: PANTOPRAZOLE 40 MG TABLET PO SCH (09:31)
[2018-05-09] MEDS: LABETALOL 200 MG TABLET PO SCH ×2 (09:31→20:47)
[2018-05-09] MEDS: BETAMETHASONE VALERATE 0.1% CREAM 15 GM TUBE TOP SCH ×2 (09:37→20:50)
[2018-05-09] MEDS: metOLazone 5 MG TABLET PO SCH (17:01)
[2018-05-09] MEDS: WARFARIN 5 MG TABLET PO SCH (18:57)
[2018-05-09] MEDS: MONTELUKAST 10 MG TABLET PO SCH (20:42)
[2018-05-10] MEDS: ALBUTEROL/IPRATROPIUM 3 ML NEB RESP TX SCH ×4 (00:26→19:03)
[2018-05-10 06:15] LABS: INR 1.7; PT Patient Result 17.4 SECS
[2018-05-10] MEDS: LEVOTHYROXINE 125 MCG TABLET PO SCH (06:28)
[2018-05-10 06:43] LABS: Calcium 6.2 MG/DL (8.5-10.1); Osmolality,Calculated 293.1 MOS/KG (273-304); Potassium 3.6 MMOL/L (3.5-5.1)
[2018-05-10] MEDS: THEOPHYLLINE ER 300 MG TABLET PO SCH (08:56)
[2018-05-10] MEDS: hydrOXYzine HCL 10 MG TABLET PO SCH ×4 (08:57→21:06)
[2018-05-10] MEDS: CHOLECALCIFEROL 400 UNIT TABLET PO SCH (08:57)
[2018-05-10] MEDS: VENLAFAXINE XR 37.5 MG CAPSULE PO SCH (08:57)
[2018-05-10] MEDS: CALCIUM (CARBONATE) 500 MG TABLET PO SCH (08:57)
[2018-05-10] MEDS: DICYCLOMINE 10 MG CAPSULE PO SCH ×2 (08:57→21:06)
[2018-05-10] MEDS: FLECAINIDE 50 MG TABLET PO SCH ×2 (08:57→21:06)
[2018-05-10] MEDS: LABETALOL 200 MG TABLET PO SCH ×2 (08:57→21:05)
[2018-05-10] MEDS: metOLazone 5 MG TABLET PO SCH (08:58)
[2018-05-10] MEDS: PANTOPRAZOLE 40 MG TABLET PO SCH (08:58)
[2018-05-10] MEDS: GABAPENTIN 400 MG CAPSULE PO SCH ×4 (08:58→21:06)
[2018-05-10] MEDS: FAMOTIDINE 20 MG TABLET PO SCH ×2 (08:58→21:06)
[2018-05-10] MEDS: FUROSEMIDE 20 MG TABLET PO SCH ×2 (08:58→17:01)
[2018-05-10] MEDS: BETAMETHASONE VALERATE 0.1% CREAM 15 GM TUBE TOP SCH ×2 (11:33→21:19)
[2018-05-10] MEDS: WARFARIN 5 MG TABLET PO SCH (17:01)
[2018-05-10] MEDS: MONTELUKAST 10 MG TABLET PO SCH (21:06)
[2018-05-10] MEDS: VANCOMYCIN INJ 1,250 MG in SODIUM CHLORIDE 0.9% 250 ML IV SCH (21:19)
[2018-05-11] MEDS: ALBUTEROL/IPRATROPIUM 3 ML NEB RESP TX SCH ×4 (01:29→19:42)
[2018-05-11 05:45] LABS: Basophils % 0.1 % (0.0-0.8); Eosinophils # 0.9 10*3/uL (0.0-0.87); Eosinophils % 9.3 % (0.00-10.9); Hematocrit 30.7 VOL% (35.7-47.0); Immature Granulocytes % 1.4 %; Immature Granulocytes Absolute 0.13 #; Lymphocytes # 0.7 10*3/uL (1.4-4.0); Lymphocytes % 7.2 % (21.3-54.2); Mean Corpuscular HGB Conc 32.6 GM/DL (32-36); Mean Corpuscular Hemoglobin 29 PG (27-34); Monocytes # 0.6 10*3/uL (0.11-0.8); Monocytes % 6.6 % (1.7-12.7); NRBC # 0.04 10*3/uL; Neutrophils # 7.2 10*3/uL (1.4-7.4); Neutrophils % 75.4 % (38.7-73.9); Platelet Count 233 T/CUMM (130-400); Red Blood Count 3.45 MC/CUMM (3.8-5.5); Red Cell Distribution Width 17.4 % (9.3-17.3); White Blood Count 9.5 T/CUMM (4-12)
[2018-05-11 06:03] LABS: Calcium 5.9 MG/DL (8.5-10.1); Osmolality,Calculated 288.3 MOS/KG (273-304)
[2018-05-11] MEDS: LEVOTHYROXINE 125 MCG TABLET PO SCH (06:13)
[2018-05-11] MEDS: THEOPHYLLINE ER 300 MG TABLET PO SCH (09:22)
[2018-05-11] MEDS: DICYCLOMINE 10 MG CAPSULE PO SCH ×2 (09:22→20:43)
[2018-05-11] MEDS: VENLAFAXINE XR 37.5 MG CAPSULE PO SCH (09:22)
[2018-05-11] MEDS: FLECAINIDE 50 MG TABLET PO SCH ×2 (09:22→20:44)
[2018-05-11] MEDS: CHOLECALCIFEROL 400 UNIT TABLET PO SCH (09:22)
[2018-05-11] MEDS: CALCIUM (CARBONATE) 500 MG TABLET PO SCH (09:22)
[2018-05-11] MEDS: metOLazone 5 MG TABLET PO SCH (09:22)
[2018-05-11] MEDS: LABETALOL 200 MG TABLET PO SCH ×2 (09:23→23:19)
[2018-05-11] MEDS: PANTOPRAZOLE 40 MG TABLET PO SCH (09:23)
[2018-05-11] MEDS: FAMOTIDINE 20 MG TABLET PO SCH ×2 (09:23→20:43)
[2018-05-11] MEDS: FUROSEMIDE 20 MG TABLET PO SCH ×2 (09:23→17:15)
[2018-05-11] MEDS: hydrOXYzine HCL 10 MG TABLET PO SCH ×4 (09:23→20:43)
[2018-05-11] MEDS: POTASSIUM CHLORIDE 20 MEQ TABLET PO PRN ×4 (09:23→23:19)
[2018-05-11] MEDS: GABAPENTIN 400 MG CAPSULE PO SCH ×4 (09:23→20:42)
[2018-05-11] MEDS: BETAMETHASONE VALERATE 0.1% CREAM 15 GM TUBE TOP SCH ×3 (09:24→20:56)
[2018-05-11] MEDS ORDERED: WARFARIN 3 MG TABLET PO SCH (18:00)
[2018-05-11] MEDS ORDERED: WARFARIN 2.5 MG TABLET PO ONE (18:00)
[2018-05-11] MEDS: MONTELUKAST 10 MG TABLET PO SCH (20:43)
[2018-05-12] MEDS: ALBUTEROL/IPRATROPIUM 3 ML NEB RESP TX SCH ×3 (01:15→12:00)
[2018-05-12 06:48] LABS: Calcium 6.6 MG/DL (8.5-10.1); Osmolality,Calculated 275.1 MOS/KG (273-304); Potassium 3.9 MMOL/L (3.5-5.1)
[2018-05-12 07:05] LABS: Basophils % 0.1 % (0.0-0.8); Eosinophils # 1.3 10*3/uL (0.0-0.87); Hematocrit 31.7 VOL% (35.7-47.0); Hemoglobin 10.1 GM/DL (12.0-16.0); Immature Granulocytes % 2.3 %; Immature Granulocytes Absolute 0.26 #; Lymphocytes # 0.6 10*3/uL (1.4-4.0); Lymphocytes % 5.3 % (21.3-54.2); Mean Corpuscular HGB Conc 31.9 GM/DL (32-36); Mean Corpuscular Hemoglobin 29 PG (27-34); Mean Corpuscular Volume 91.6 FL (87-102); Monocytes # 0.7 10*3/uL (0.11-0.8); Monocytes % 5.9 % (1.7-12.7); NRBC # 0.04 10*3/uL; Neutrophils # 8.3 10*3/uL (1.4-7.4); Neutrophils % 74.4 % (38.7-73.9); Platelet Count 199 T/CUMM (130-400); Red Blood Count 3.46 MC/CUMM (3.8-5.5); Red Cell Distribution Width 17.9 % (9.3-17.3); White Blood Count 11.1 T/CUMM (4-12)
[2018-05-12 07:31] LABS: Eosinophils 8 % (0-10); Giant Platelets Few; Hypochromasia 1+; Lymphocytes 4 % (20-55); Platelet Estimate Adequate; Segmented Neutrophils 85 % (50-85); Total Cells Counted 100
[2018-05-12 07:32] LABS: Microcytosis Slight
[2018-05-12] MEDS: LEVOTHYROXINE 125 MCG TABLET PO SCH (07:45)
[2018-05-12] MEDS: FAMOTIDINE 20 MG TABLET PO SCH (08:43)
[2018-05-12] MEDS: DICYCLOMINE 10 MG CAPSULE PO SCH (08:43)
[2018-05-12] MEDS: FLECAINIDE 50 MG TABLET PO SCH (08:43)
[2018-05-12] MEDS: FUROSEMIDE 20 MG TABLET PO SCH (08:43)
[2018-05-12] MEDS: THEOPHYLLINE ER 300 MG TABLET PO SCH (08:43)
[2018-05-12] MEDS: GABAPENTIN 400 MG CAPSULE PO SCH ×2 (08:43→14:37)
[2018-05-12] MEDS: CALCIUM (CARBONATE) 500 MG TABLET PO SCH (08:44)
[2018-05-12] MEDS: hydrOXYzine HCL 10 MG TABLET PO SCH ×2 (08:44→14:38)
[2018-05-12] MEDS: VENLAFAXINE XR 37.5 MG CAPSULE PO SCH (08:44)
[2018-05-12] MEDS: CHOLECALCIFEROL 400 UNIT TABLET PO SCH (08:44)
[2018-05-12] MEDS: LABETALOL 200 MG TABLET PO SCH (08:44)
[2018-05-12] MEDS: PANTOPRAZOLE 40 MG TABLET PO SCH (08:44)
[2018-05-12] MEDS: metOLazone 5 MG TABLET PO SCH (08:44)
[2018-05-12] MEDS: BETAMETHASONE VALERATE 0.1% CREAM 15 GM TUBE TOP SCH (08:45)
[2018-05-12 09:52] LABS: INR 2.2
[2018-05-12 09:53] LABS: PT Patient Result 22.6 SECS
[2018-05-12] MEDS ORDERED: CALCIUM GLUCONATE 2,000 MG in SODIUM CHLORIDE 0.9% 100 ML IV ONE (10:30)
[2018-05-12 16:13] VITALS: BP 139/62
== END 2018-05-12 16:55 | disposition swing bed (61) | DRG 602 ==
LOC: EDUNIT# → EDBD → N.ED 14:08 → SUATTDRO 17:27 → N.EDINP 17:27 → N.2E 19:32
PROVIDERS: ADMIT Hospitalist; ATTEND Internal Medicine

== ENCOUNTER 2018-05-14 18:23 | Inpatient (IN) ==
[2018-05-14] MEDS ORDERED: SODIUM CHLORIDE 0.9% 500 ML IV STA (18:55)
[2018-05-14] MEDS ORDERED: ACETAMINOPHEN 500 MG TABLET PO STA (18:55)
[2018-05-14 19:05] LABS: Basophils % 0.2 % (0.0-0.8); Eosinophils # 1.6 10*3/uL (0.0-0.87); Eosinophils % 9.5 % (0.00-10.9); Hematocrit 32.7 VOL% (35.7-47.0); Hemoglobin 10.4 GM/DL (12.0-16.0); Immature Granulocytes % 0.8 %; Immature Granulocytes Absolute 0.14 #; Lymphocytes # 0.6 10*3/uL (1.4-4.0); Lymphocytes % 3.3 % (21.3-54.2); Mean Corpuscular HGB Conc 31.8 GM/DL (32-36); Mean Corpuscular Hemoglobin 29 PG (27-34); Mean Corpuscular Volume 92.4 FL (87-102); Mean Platelet Volume 11.3 FL (9.6-12.0); Monocytes % 5.8 % (1.7-12.7); Neutrophils # 13.4 10*3/uL (1.4-7.4); Neutrophils % 80.4 % (38.7-73.9); Platelet Count 179 T/CUMM (130-400); Red Blood Count 3.54 MC/CUMM (3.8-5.5); Red Cell Distribution Width 17.2 % (9.3-17.3); White Blood Count 16.7 T/CUMM (4-12)
[2018-05-14] MEDS ORDERED: ACETAMINOPHEN 650 MG SUPP RECTAL ONE (19:22)
[2018-05-14 19:23] LABS: INR 2.6
[2018-05-14] MEDS ORDERED: ACETAMINOPHEN 650 MG SUPP RECTAL STA (19:23)
[2018-05-14] MEDS ORDERED: ALBUTEROL NEB SOLN 5 MG/ML 20 ML/BOTTLE CONT NEB STA (19:24)
[2018-05-14] MEDS ORDERED: FUROSEMIDE 40 MG/4 ML VIAL IV STA (19:26)
[2018-05-14 19:27] LABS: PT Patient Result 26.2 SECS
[2018-05-14 19:29] LABS: Lactic Acid 1.6 MMOL/L (0.4-2.0)
[2018-05-14 19:32] LABS: Albumin 3.1 G/DL (3.4-5.0); Bilirubin,Total 0.9 MG/DL (0.2-1.0); Calcium 7.4 MG/DL (8.5-10.1); Potassium 3.4 MMOL/L (3.5-5.1); Total Protein 5.9 G/DL (6.4-8.3)
[2018-05-14 19:42] LABS: Band Neutrophils 5 % (0-10); Eosinophils 8 % (0-10); Lymphocytes 6 % (20-55); Segmented Neutrophils 76 % (50-85); Total Cells Counted 100
[2018-05-14 19:43] LABS: Anisocytosis 1+; Hypochromasia 1+; Microcytosis 1+; Platelet Estimate Normal
[2018-05-14 20:01] LABS: Amylase 19 U/L (25-115); Troponin I 0.026 NG/ML (0.00-0.045)
[2018-05-14 20:07] LABS: Apearance,Urine CLEAR (Clear); Bacteria,Urine Occasional /HPF (Few); Bilirubin,Urine Negative (Negative); Blood, Urine Negative (Negative); Glucose,Urine (UA) Negative (Negative); Hyaline Casts,Urine 2 /LPF (0-3); Ketones,Urine Negative (Negative); Nitrite,Urine Negative (Negative); Protein,Urine Negative; RBC,Urine 1 /HPF (0-4); Squamous Epithelial Cell,Urine Occasional /HPF (0-10); Urine Color Yellow (Yellow); Urine Specific Gravity 1.009 (1.001-1.035); Urine Urobilinogen < 2.0 EU/DL (0.2-1.0); WBC,Urine <1 /HPF (0-6)
[2018-05-14] MEDS ORDERED: VANCOMYCIN INJ 1,000 MG in SODIUM CHLORIDE 0.9% 250 ML IV STA (20:14)
[2018-05-14 20:55] LABS: ABG Base Excess 17.6 MMOL/L (-2.5-2.5); ABG HCO3 42.9 MMOL/L (20-26); ABG PCO2 55.2 MM HG (35-48); ABG PH 7.508 (7.35-7.45); ABG PO2 50.2 MM HG (80-95); ABG TCO2 44.6 MMOL/L (23-27)
[2018-05-14] MEDS ORDERED: POTASSIUM CHLORIDE RIDER 20 MEQ in PREMIX 1 EACH IV PRN (21:03)
[2018-05-14 23:04] LABS: HIV Antigen/Antibody Result Nonreactive (Nonreactive); Hepatitis B Surface Ag Quant < 0.10 Index; Hepatitis B Surface Ag Result Negative (Negative); Hepatitis C Virus Ab Quant 0.08 Index; Hepatitis C Virus Ab Result Negative (Negative)
[2018-05-15] MEDS: MEROPENEM 500 MG in SODIUM CHLORIDE 0.9% 100 ML IV SCH ×2 (00:23→11:46)
[2018-05-15] MEDS: POTASSIUM CHLORIDE RIDER 10 MEQ in PREMIX 1 EACH IV SCH ×4 (00:23→03:48)
[2018-05-15] MEDS: ALBUTEROL/IPRATROPIUM 3 ML NEB RESP TX SCH ×4 (00:30→19:13)
[2018-05-15] MEDS ORDERED: POTASSIUM CHLORIDE RIDER 10 MEQ in PREMIX 1 EACH IV SCH (04:00)
[2018-05-15 04:25] LABS: ABG Base Excess 18.7 MMOL/L (-2.5-2.5); ABG HCO3 43.9 MMOL/L (20-26); ABG Oxygen Saturation 94.7 % (95-100); ABG PH 7.512 (7.35-7.45); ABG PO2 79.3 MM HG (80-95); ABG TCO2 45.6 MMOL/L (23-27); Allen Test Positive
[2018-05-15 06:20] LABS: Basophils % 0.2 % (0.0-0.8); Eosinophils # 1.5 10*3/uL (0.0-0.87); Eosinophils % 11.3 % (0.00-10.9); Hematocrit 29.5 VOL% (35.7-47.0); Hemoglobin 9.4 GM/DL (12.0-16.0); Immature Granulocytes % 0.8 %; Lymphocytes # 0.9 10*3/uL (1.4-4.0); Lymphocytes % 6.8 % (21.3-54.2); Mean Corpuscular HGB Conc 31.9 GM/DL (32-36); Mean Corpuscular Hemoglobin 30 PG (27-34); Mean Corpuscular Volume 92.5 FL (87-102); Mean Platelet Volume 11.8 FL (9.6-12.0); Neutrophils # 9.3 10*3/uL (1.4-7.4); Neutrophils % 72.9 % (38.7-73.9); Platelet Count 175 T/CUMM (130-400); Red Blood Count 3.19 MC/CUMM (3.8-5.5); Red Cell Distribution Width 17.2 % (9.3-17.3); White Blood Count 12.8 T/CUMM (4-12)
[2018-05-15 06:21] LABS: Basophils % 0.2 % (0.0-0.8); Eosinophils # 1.4 10*3/uL (0.0-0.87); Eosinophils % 11.3 % (0.00-10.9); Hematocrit 29.4 VOL% (35.7-47.0); Hemoglobin 9.4 GM/DL (12.0-16.0); Immature Granulocytes % 0.6 %; Immature Granulocytes Absolute 0.07 #; Lymphocytes # 0.8 10*3/uL (1.4-4.0); Lymphocytes % 6.4 % (21.3-54.2); Mean Corpuscular Hemoglobin 29 PG (27-34); Mean Corpuscular Volume 90.2 FL (87-102); Mean Platelet Volume 11.8 FL (9.6-12.0); Monocytes % 8.3 % (1.7-12.7); Neutrophils % 73.2 % (38.7-73.9); Platelet Count 186 T/CUMM (130-400); Red Blood Count 3.26 MC/CUMM (3.8-5.5); Red Cell Distribution Width 17.4 % (9.3-17.3); White Blood Count 12.3 T/CUMM (4-12)
[2018-05-15 06:32] LABS: INR 2.7
[2018-05-15 06:33] LABS: PT Patient Result 27.8 SECS
[2018-05-15 06:59] LABS: Folate 14.4 NG/ML (5.4-24.0); Vitamin B12 270 PG/ML (211-911)
[2018-05-15 07:02] LABS: % Iron Saturation 17.4 % (18-50); Ferritin 555.8 ng/ml (8-252)
[2018-05-15 07:04] LABS: Band Neutrophils 3 % (0-10); Eosinophils 10 % (0-10); Giant Platelets Few; Hypochromasia 1+; Lymphocytes 3 % (20-55); Microcytosis Slight; Platelet Estimate Adequate; Segmented Neutrophils 79 % (50-85); Total Cells Counted 100
[2018-05-15 07:07] LABS: Band Neutrophils 1 % (0-10); Eosinophils 13 % (0-10); Hypochromasia 1+; Lymphocytes 4 % (20-55); Ovalocytes Slight; Platelet Estimate Adequate; Segmented Neutrophils 77 % (50-85); Total Cells Counted 100
[2018-05-15 07:08] LABS: Albumin 2.8 G/DL (3.4-5.0); Bilirubin,Total 0.8 MG/DL (0.2-1.0); Calcium 7.9 MG/DL (8.5-10.1); Microcytosis Slight; Thyroid Stimulating Hormone 2.96 uIU/ml (0.358-3.74); Total Protein 6.1 G/DL (6.4-8.3)
[2018-05-15] MEDS: LEVOTHYROXINE 100 MCG VIAL IV SCH (07:29)
[2018-05-15 08:45] LABS: Sedimentation Rate-Westergren 66 MM/HR (0-30)
[2018-05-15 09:00] LABS: Hemoglobin A1 (Alkaline) 97.2 % (96.5-98.5); Hemoglobin A2 (Alkaline) 2.8 % (1.5-3.5)
[2018-05-15] MEDS: FAMOTIDINE 20 MG/2 ML VIAL IV SCH ×2 (09:56→21:00)
[2018-05-15] MEDS: FUROSEMIDE 40 MG/4 ML VIAL IV SCH ×2 (09:58→21:00)
[2018-05-15] MEDS: POTASSIUM CHLORIDE RIDER 10 MEQ in PREMIX 1 EACH IV PRN ×5 (10:11→20:32)
[2018-05-15] MEDS: MORPHINE 4 MG/1 ML VIAL IV PRN (15:26)
[2018-05-15] MEDS ORDERED: diphenhydrAMINE 50 MG/1 ML VIAL IV ONE (20:40)
[2018-05-15] MEDS: acetaZOLAMIDE 250 MG TABLET PO SCH (20:59)
[2018-05-16] MEDS: ALBUTEROL/IPRATROPIUM 3 ML NEB RESP TX SCH ×4 (00:08→19:23)
[2018-05-16] MEDS: MEROPENEM 500 MG in SODIUM CHLORIDE 0.9% 100 ML IV SCH ×2 (00:16→11:20)
[2018-05-16] MEDS: MORPHINE 4 MG/1 ML VIAL IV PRN (01:41)
[2018-05-16] MEDS: LEVOTHYROXINE 100 MCG VIAL IV SCH (06:47)
[2018-05-16] MEDS: FAMOTIDINE 20 MG/2 ML VIAL IV SCH (08:52)
[2018-05-16] MEDS: acetaZOLAMIDE 250 MG TABLET PO SCH ×3 (08:52→20:54)
[2018-05-16] MEDS: POTASSIUM CHLORIDE 20 MEQ TABLET PO PRN ×3 (08:52→13:20)
[2018-05-16] MEDS: FUROSEMIDE 40 MG/4 ML VIAL IV SCH ×2 (08:52→20:54)
[2018-05-16 14:42] LABS: INR 1.9; PT Patient Result 19.2 SECS
[2018-05-16] MEDS: POTASSIUM CHLORIDE 20 MEQ TABLET PO SCH (15:30)
[2018-05-16] MEDS: WARFARIN 5 MG TABLET PO SCH (18:05)
[2018-05-16] MEDS: MONTELUKAST 10 MG TABLET PO SCH (20:54)
[2018-05-16] MEDS: FLECAINIDE 50 MG TABLET PO SCH (20:54)
[2018-05-16] MEDS: FAMOTIDINE 20 MG TABLET PO SCH (20:54)
[2018-05-16] MEDS: diphenhydrAMINE CAP 25 MG CAPSULE PO PRN (20:59)
[2018-05-17] MEDS: MEROPENEM 500 MG in SODIUM CHLORIDE 0.9% 100 ML IV SCH ×2 (00:13→11:57)
[2018-05-17] MEDS: ALBUTEROL/IPRATROPIUM 3 ML NEB RESP TX SCH ×5 (00:59→20:33)
[2018-05-17 04:46] LABS: Allen Test Positive
[2018-05-17 04:47] LABS: ABG Base Excess 12.6 MMOL/L (-2.5-2.5); ABG HCO3 38.5 MMOL/L (20-26); ABG PCO2 56.2 MM HG (35-48); ABG PH 7.454 (7.35-7.45); ABG PO2 70.4 MM HG (80-95); ABG TCO2 40.3 MMOL/L (23-27)
[2018-05-17 06:30] LABS: Calcium 8.4 MG/DL (8.5-10.1); Osmolality,Calculated 275.8 MOS/KG (273-304); Potassium 3.1 MMOL/L (3.5-5.1)
[2018-05-17] MEDS: LEVOTHYROXINE 100 MCG VIAL IV SCH (06:46)
[2018-05-17] MEDS: LEVOTHYROXINE 125 MCG TABLET PO SCH (07:18)
[2018-05-17 07:58] LABS: Apearance,Urine CLEAR (Clear); Bacteria,Urine Occasional /HPF (Few); Bilirubin,Urine Negative (Negative); Blood, Urine Negative (Negative); Glucose,Urine (UA) Negative (Negative); Hyaline Casts,Urine 11 /LPF (0-3); Ketones,Urine Negative (Negative); Mucus,Urine Occasional /LPF (Occasional); Nitrite,Urine Negative (Negative); Protein,Urine Negative; RBC,Urine 2 /HPF (0-4); Squamous Epithelial Cell,Urine Occasional /HPF (0-10); Urine Color Yellow (Yellow); Urine Specific Gravity 1.009 (1.001-1.035); Urine Urobilinogen < 2.0 EU/DL (0.2-1.0); WBC,Urine 6 /HPF (0-6)
[2018-05-17] MEDS: POTASSIUM CHLORIDE 20 MEQ TABLET PO SCH (09:24)
[2018-05-17] MEDS: VENLAFAXINE XR 37.5 MG CAPSULE PO SCH (09:24)
[2018-05-17] MEDS: acetaZOLAMIDE 250 MG TABLET PO SCH ×3 (09:24→21:49)
[2018-05-17] MEDS: THEOPHYLLINE ER 300 MG TABLET PO SCH (09:24)
[2018-05-17] MEDS: FAMOTIDINE 20 MG TABLET PO SCH ×2 (09:25→21:49)
[2018-05-17] MEDS: FUROSEMIDE 40 MG/4 ML VIAL IV SCH ×2 (09:44→21:48)
[2018-05-17] MEDS: FLECAINIDE 50 MG TABLET PO SCH ×2 (09:44→21:49)
[2018-05-17] MEDS: POTASSIUM CHLORIDE 20 MEQ TABLET PO PRN ×4 (14:11→21:48)
[2018-05-17] MEDS: WARFARIN 5 MG TABLET PO SCH (17:38)
[2018-05-17] MEDS: CYANOCOBALAMIN 1000 MCG/1 ML VIAL SUBCUT SCH (18:24)
[2018-05-17] MEDS: MONTELUKAST 10 MG TABLET PO SCH (21:49)
[2018-05-17] MEDS: ONDANSETRON 4 MG/2 ML VIAL IV PRN (22:30)
[2018-05-18] MEDS: ALBUTEROL/IPRATROPIUM 3 ML NEB RESP TX SCH ×4 (00:26→18:40)
[2018-05-18] MEDS: MEROPENEM 500 MG in SODIUM CHLORIDE 0.9% 100 ML IV SCH ×2 (01:11→12:33)
[2018-05-18] MEDS: POTASSIUM CHLORIDE RIDER 10 MEQ in PREMIX 1 EACH IV PRN ×5 (02:50→17:18)
[2018-05-18 04:17] LABS: Basophils # 0.1 10*3/uL (0.0-0.2); Basophils % 0.4 % (0.0-0.8); Eosinophils # 2.9 10*3/uL (0.0-0.87); Eosinophils % 25.6 % (0.00-10.9); Hematocrit 35.9 VOL% (35.7-47.0); Hemoglobin 11.6 GM/DL (12.0-16.0); Immature Granulocytes % 1.4 %; Immature Granulocytes Absolute 0.16 #; Lymphocytes # 1.5 10*3/uL (1.4-4.0); Mean Corpuscular HGB Conc 32.3 GM/DL (32-36); Mean Corpuscular Hemoglobin 29 PG (27-34); Mean Platelet Volume 11.3 FL (9.6-12.0); Monocytes # 1.4 10*3/uL (0.11-0.8); Monocytes % 12.2 % (1.7-12.7); NRBC # 0.03 10*3/uL; Neutrophils # 5.4 10*3/uL (1.4-7.4); Neutrophils % 47.4 % (38.7-73.9); Platelet Count 294 T/CUMM (130-400); Red Blood Count 3.99 MC/CUMM (3.8-5.5); Red Cell Distribution Width 17.8 % (9.3-17.3); White Blood Count 11.5 T/CUMM (4-12)
[2018-05-18 04:26] LABS: INR 2.8; PT Patient Result 28.8 SECS
[2018-05-18 04:50] LABS: Calcium 7.8 MG/DL (8.5-10.1); Osmolality,Calculated 279.7 MOS/KG (273-304)
[2018-05-18 04:59] LABS: Eosinophils 24 % (0-10); Hypochromasia 1+; Lymphocytes 9 % (20-55); Microcytosis Slight; Platelet Estimate Adequate; Segmented Neutrophils 50 % (50-85); Total Cells Counted 100
[2018-05-18] MEDS: LEVOTHYROXINE 125 MCG TABLET PO SCH (07:02)
[2018-05-18] MEDS: FUROSEMIDE 40 MG/4 ML VIAL IV SCH ×2 (09:11→20:18)
[2018-05-18] MEDS: FLECAINIDE 50 MG TABLET PO SCH ×2 (09:11→20:17)
[2018-05-18] MEDS: VENLAFAXINE XR 37.5 MG CAPSULE PO SCH (09:11)
[2018-05-18] MEDS: THEOPHYLLINE ER 300 MG TABLET PO SCH (09:11)
[2018-05-18] MEDS: CYANOCOBALAMIN 500 MCG TABLET PO SCH (09:11)
[2018-05-18] MEDS: acetaZOLAMIDE 250 MG TABLET PO SCH ×3 (09:11→20:17)
[2018-05-18] MEDS: POTASSIUM CHLORIDE 20 MEQ TABLET PO SCH ×2 (09:12→09:20)
[2018-05-18] MEDS: SPIRONOLACTONE 25 MG TABLET PO SCH (09:12)
[2018-05-18] MEDS: FAMOTIDINE 20 MG TABLET PO SCH ×2 (09:12→20:17)
[2018-05-18] MEDS: WARFARIN 5 MG TABLET PO SCH (17:18)
[2018-05-18] MEDS: MONTELUKAST 10 MG TABLET PO SCH (20:18)
[2018-05-19] MEDS: ALBUTEROL/IPRATROPIUM 3 ML NEB RESP TX SCH ×4 (00:10→19:00)
[2018-05-19] MEDS: MEROPENEM 500 MG in SODIUM CHLORIDE 0.9% 100 ML IV SCH ×2 (00:21→11:44)
[2018-05-19 03:26] LABS: Basophils # 0.1 10*3/uL (0.0-0.2); Basophils % 0.7 % (0.0-0.8); Eosinophils # 3.4 10*3/uL (0.0-0.87); Eosinophils % 28.4 % (0.00-10.9); Hematocrit 38.3 VOL% (35.7-47.0); Hemoglobin 12.3 GM/DL (12.0-16.0); Immature Granulocytes % 1.6 %; Immature Granulocytes Absolute 0.19 #; Lymphocytes # 1.9 10*3/uL (1.4-4.0); Lymphocytes % 15.6 % (21.3-54.2); Mean Corpuscular HGB Conc 32.1 GM/DL (32-36); Mean Corpuscular Hemoglobin 29 PG (27-34); Mean Corpuscular Volume 90.3 FL (87-102); Mean Platelet Volume 11.3 FL (9.6-12.0); Monocytes # 1.5 10*3/uL (0.11-0.8); Monocytes % 12.3 % (1.7-12.7); NRBC # 0.02 10*3/uL; Neutrophils # 4.9 10*3/uL (1.4-7.4); Neutrophils % 41.4 % (38.7-73.9); Platelet Count 297 T/CUMM (130-400); Red Blood Count 4.24 MC/CUMM (3.8-5.5); Red Cell Distribution Width 17.7 % (9.3-17.3); White Blood Count 11.9 T/CUMM (4-12)
[2018-05-19 03:32] LABS: Calcium 7.6 MG/DL (8.5-10.1); Potassium 2.8 MMOL/L (3.5-5.1)
[2018-05-19] MEDS ORDERED: POTASSIUM CHLORIDE RIDER 20 MEQ in PREMIX 1 EACH IV PRN (04:02)
[2018-05-19] MEDS: diphenhydrAMINE CAP 25 MG CAPSULE PO PRN ×2 (04:31→17:25)
[2018-05-19 04:51] LABS: Anisocytosis Slight; Band Neutrophils 2 % (0-10); Eosinophils 31 % (0-10); Hypochromasia Slight; Lymphocytes 12 % (20-55); Macrocytosis Slight; Ovalocytes 1+; Platelet Estimate Normal; Segmented Neutrophils 41 % (50-85); Total Cells Counted 100
[2018-05-19] MEDS: LEVOTHYROXINE 125 MCG TABLET PO SCH (06:25)
[2018-05-19] MEDS ORDERED: POTASSIUM CHLORIDE 20 MEQ TABLET PO SCH (09:00)
[2018-05-19] MEDS: SPIRONOLACTONE 25 MG TABLET PO SCH (09:30)
[2018-05-19] MEDS: CYANOCOBALAMIN 500 MCG TABLET PO SCH (09:30)
[2018-05-19] MEDS: VENLAFAXINE XR 37.5 MG CAPSULE PO SCH (09:30)
[2018-05-19] MEDS: FAMOTIDINE 20 MG TABLET PO SCH ×2 (09:30→21:39)
[2018-05-19] MEDS: FLECAINIDE 50 MG TABLET PO SCH ×2 (09:30→21:39)
[2018-05-19] MEDS: acetaZOLAMIDE 250 MG TABLET PO SCH ×3 (09:30→21:40)
[2018-05-19] MEDS: THEOPHYLLINE ER 300 MG TABLET PO SCH (09:30)
[2018-05-19] MEDS: POTASSIUM CHLORIDE 20 MEQ TABLET PO SCH ×3 (09:30→21:39)
[2018-05-19] MEDS: FUROSEMIDE 40 MG/4 ML VIAL IV SCH ×2 (11:42→21:40)
[2018-05-19] MEDS: WARFARIN 5 MG TABLET PO SCH (17:03)
[2018-05-19] MEDS: POTASSIUM CHLORIDE 20 MEQ TABLET PO PRN (17:25)
[2018-05-19] MEDS: MONTELUKAST 10 MG TABLET PO SCH (21:39)
[2018-05-20] MEDS: ALBUTEROL/IPRATROPIUM 3 ML NEB RESP TX SCH ×4 (00:05→19:30)
[2018-05-20] MEDS: MEROPENEM 500 MG in SODIUM CHLORIDE 0.9% 100 ML IV SCH ×2 (00:09→11:50)
[2018-05-20] MEDS: ONDANSETRON 4 MG/2 ML VIAL IV PRN (00:43)
[2018-05-20] MEDS ORDERED: HYDROmorphone 2 MG/1 ML VIAL IV ONE (06:43)
[2018-05-20] MEDS: LEVOTHYROXINE 125 MCG TABLET PO SCH (06:56)
[2018-05-20 07:29] LABS: Calcium 7.4 MG/DL (8.5-10.1); Potassium 3.5 MMOL/L (3.5-5.1)
[2018-05-20] MEDS: POTASSIUM CHLORIDE 20 MEQ TABLET PO SCH ×3 (09:37→20:56)
[2018-05-20] MEDS: THEOPHYLLINE ER 300 MG TABLET PO SCH (09:37)
[2018-05-20] MEDS: FAMOTIDINE 20 MG TABLET PO SCH (09:37)
[2018-05-20] MEDS: VENLAFAXINE XR 37.5 MG CAPSULE PO SCH (09:37)
[2018-05-20] MEDS: SPIRONOLACTONE 25 MG TABLET PO SCH (09:37)
[2018-05-20] MEDS: CYANOCOBALAMIN 500 MCG TABLET PO SCH (09:37)
[2018-05-20] MEDS: acetaZOLAMIDE 250 MG TABLET PO SCH ×3 (09:38→20:56)
[2018-05-20] MEDS: FLECAINIDE 50 MG TABLET PO SCH ×2 (09:38→20:56)
[2018-05-20] MEDS: diphenhydrAMINE CAP 25 MG CAPSULE PO PRN ×2 (10:01→15:29)
[2018-05-20] MEDS: FUROSEMIDE 40 MG/4 ML VIAL IV SCH (10:03)
[2018-05-20] MEDS: WARFARIN 5 MG TABLET PO SCH (18:19)
[2018-05-20] MEDS: FUROSEMIDE 40 MG TABLET PO SCH (18:19)
[2018-05-20] MEDS: MONTELUKAST 10 MG TABLET PO SCH (20:56)
[2018-05-20] MEDS: GABAPENTIN 100 MG CAPSULE PO SCH (20:56)
[2018-05-21] MEDS: MEROPENEM 500 MG in SODIUM CHLORIDE 0.9% 100 ML IV SCH ×2 (00:37→11:32)
[2018-05-21] MEDS: ALBUTEROL/IPRATROPIUM 3 ML NEB RESP TX SCH ×4 (00:52→19:43)
[2018-05-21 06:57] LABS: Basophils # 0.1 10*3/uL (0.0-0.2); Basophils % 0.7 % (0.0-0.8); Eosinophils % 20.3 % (0.00-10.9); Hematocrit 40.3 VOL% (35.7-47.0); Hemoglobin 12.5 GM/DL (12.0-16.0); Immature Granulocytes % 1.2 %; Immature Granulocytes Absolute 0.17 #; Lymphocytes # 1.7 10*3/uL (1.4-4.0); Lymphocytes % 11.7 % (21.3-54.2); Mean Corpuscular Hemoglobin 29 PG (27-34); Mean Corpuscular Volume 93.1 FL (87-102); Mean Platelet Volume 11.3 FL (9.6-12.0); Monocytes # 1.3 10*3/uL (0.11-0.8); Monocytes % 8.8 % (1.7-12.7); NRBC # 0.02 10*3/uL; Neutrophils # 8.4 10*3/uL (1.4-7.4); Neutrophils % 57.3 % (38.7-73.9); Platelet Count 303 T/CUMM (130-400); Red Blood Count 4.33 MC/CUMM (3.8-5.5); Red Cell Distribution Width 18.2 % (9.3-17.3); White Blood Count 14.6 T/CUMM (4-12)
[2018-05-21 07:24] LABS: Band Neutrophils 2 % (0-10); Eosinophils 25 % (0-10); Hypochromasia 1+; Lymphocytes 8 % (20-55); Nucleated Red Blood Cells 1 (0-5); Ovalocytes Slight; Platelet Estimate Adequate; Segmented Neutrophils 57 % (50-85); Total Cells Counted 100
[2018-05-21 07:27] LABS: Calcium 7.6 MG/DL (8.5-10.1); Osmolality,Calculated 284.8 MOS/KG (273-304); Potassium 4.1 MMOL/L (3.5-5.1)
[2018-05-21] MEDS: LEVOTHYROXINE 125 MCG TABLET PO SCH (08:08)
[2018-05-21] MEDS: FUROSEMIDE 40 MG TABLET PO SCH (08:09)
[2018-05-21] MEDS: CYANOCOBALAMIN 500 MCG TABLET PO SCH (09:40)
[2018-05-21] MEDS: POTASSIUM CHLORIDE 20 MEQ TABLET PO SCH ×3 (09:40→22:01)
[2018-05-21] MEDS: acetaZOLAMIDE 250 MG TABLET PO SCH (09:40)
[2018-05-21] MEDS: VENLAFAXINE XR 37.5 MG CAPSULE PO SCH (09:40)
[2018-05-21] MEDS: GABAPENTIN 100 MG CAPSULE PO SCH ×2 (09:40→22:01)
[2018-05-21] MEDS: SPIRONOLACTONE 25 MG TABLET PO SCH (09:41)
[2018-05-21] MEDS: FLECAINIDE 50 MG TABLET PO SCH ×2 (09:41→22:01)
[2018-05-21] MEDS: PANTOPRAZOLE 40 MG TABLET PO SCH (09:41)
[2018-05-21] MEDS: diphenhydrAMINE CAP 25 MG CAPSULE PO PRN (11:51)
[2018-05-21] MEDS: WARFARIN 5 MG TABLET PO SCH (17:13)
[2018-05-21] MEDS: MONTELUKAST 10 MG TABLET PO SCH (22:01)
[2018-05-22] MEDS: MEROPENEM 500 MG in SODIUM CHLORIDE 0.9% 100 ML IV SCH ×2 (00:24→12:21)
[2018-05-22] MEDS: ALBUTEROL/IPRATROPIUM 3 ML NEB RESP TX SCH ×4 (01:40→19:13)
[2018-05-22] MEDS: LEVOTHYROXINE 125 MCG TABLET PO SCH (06:06)
[2018-05-22 06:07] LABS: Basophils # 0.1 10*3/uL (0.0-0.2); Basophils % 0.7 % (0.0-0.8); Eosinophils # 3.1 10*3/uL (0.0-0.87); Hematocrit 37.2 VOL% (35.7-47.0); Hemoglobin 11.9 GM/DL (12.0-16.0); Immature Granulocytes % 1.5 %; Lymphocytes # 1.4 10*3/uL (1.4-4.0); Lymphocytes % 10.4 % (21.3-54.2); Mean Corpuscular Hemoglobin 29 PG (27-34); Mean Corpuscular Volume 90.5 FL (87-102); Mean Platelet Volume 11.3 FL (9.6-12.0); Monocytes # 1.2 10*3/uL (0.11-0.8); Monocytes % 9.2 % (1.7-12.7); NRBC # 0.05 10*3/uL; Neutrophils # 7.4 10*3/uL (1.4-7.4); Neutrophils % 55.2 % (38.7-73.9); Platelet Count 257 T/CUMM (130-400); Red Blood Count 4.11 MC/CUMM (3.8-5.5); Red Cell Distribution Width 18.3 % (9.3-17.3); White Blood Count 13.4 T/CUMM (4-12)
[2018-05-22 06:35] LABS: Band Neutrophils 5 % (0-10); Eosinophils 20 % (0-10); Lymphocytes 14 % (20-55); Platelet Estimate Normal; Segmented Neutrophils 49 % (50-85); Total Cells Counted 100
[2018-05-22 06:37] LABS: Calcium 7.2 MG/DL (8.5-10.1); Osmolality,Calculated 283.8 MOS/KG (273-304); Potassium 4.4 MMOL/L (3.5-5.1)
[2018-05-22] MEDS: POTASSIUM CHLORIDE 20 MEQ TABLET PO SCH ×3 (10:06→20:32)
[2018-05-22] MEDS: PANTOPRAZOLE 40 MG TABLET PO SCH (10:06)
[2018-05-22] MEDS: VENLAFAXINE XR 37.5 MG CAPSULE PO SCH (10:06)
[2018-05-22] MEDS: SPIRONOLACTONE 25 MG TABLET PO SCH (10:06)
[2018-05-22] MEDS: CYANOCOBALAMIN 500 MCG TABLET PO SCH (10:06)
[2018-05-22] MEDS: FLECAINIDE 50 MG TABLET PO SCH ×2 (10:06→20:32)
[2018-05-22] MEDS: GABAPENTIN 100 MG CAPSULE PO SCH ×2 (10:06→20:32)
[2018-05-22] MEDS: diphenhydrAMINE CAP 25 MG CAPSULE PO PRN (10:21)
[2018-05-22] MEDS: WARFARIN 5 MG TABLET PO SCH (17:42)
[2018-05-22] MEDS: MONTELUKAST 10 MG TABLET PO SCH (20:32)
[2018-05-22] MEDS: QUEtiapine 25 MG TABLET PO SCH (20:32)
[2018-05-23] MEDS: MEROPENEM 500 MG in SODIUM CHLORIDE 0.9% 100 ML IV SCH ×2 (00:52→14:48)
[2018-05-23] MEDS: diphenhydrAMINE CAP 25 MG CAPSULE PO PRN ×2 (01:40→09:28)
[2018-05-23 06:38] LABS: Basophils # 0.1 10*3/uL (0.0-0.2); Basophils % 0.9 % (0.0-0.8); Eosinophils # 2.6 10*3/uL (0.0-0.87); Eosinophils % 17.2 % (0.00-10.9); Hematocrit 38.9 VOL% (35.7-47.0); Hemoglobin 12.6 GM/DL (12.0-16.0); Immature Granulocytes % 1.4 %; Immature Granulocytes Absolute 0.22 #; Lymphocytes # 1.5 10*3/uL (1.4-4.0); Mean Corpuscular HGB Conc 32.4 GM/DL (32-36); Mean Corpuscular Hemoglobin 29 PG (27-34); Mean Platelet Volume 12.3 FL (9.6-12.0); Monocytes # 1.6 10*3/uL (0.11-0.8); Monocytes % 10.6 % (1.7-12.7); NRBC # 0.13 10*3/uL; Neutrophils # 9.1 10*3/uL (1.4-7.4); Neutrophils % 59.9 % (38.7-73.9); Platelet Count 292 T/CUMM (130-400); Red Blood Count 4.32 MC/CUMM (3.8-5.5); Red Cell Distribution Width 18.6 % (9.3-17.3); White Blood Count 15.2 T/CUMM (4-12)
[2018-05-23] MEDS: LEVOTHYROXINE 125 MCG TABLET PO SCH (06:39)
[2018-05-23 06:48] LABS: Calcium 7.4 MG/DL (8.5-10.1); Osmolality,Calculated 285.8 MOS/KG (273-304)
[2018-05-23 07:04] LABS: Potassium 6.7 MMOL/L (3.5-5.1)
[2018-05-23 07:22] LABS: Band Neutrophils 6 % (0-10); Eosinophils 8 % (0-10); Lymphocytes 12 % (20-55); Nucleated Red Blood Cells 1 (0-5); Platelet Estimate Normal; Segmented Neutrophils 69 % (50-85); Total Cells Counted 100
[2018-05-23 07:23] LABS: Atypical Lymphocytes Few
[2018-05-23] MEDS: ALBUTEROL/IPRATROPIUM 3 ML NEB RESP TX SCH ×4 (07:49→19:05)
[2018-05-23] MEDS: CYANOCOBALAMIN 500 MCG TABLET PO SCH (09:27)
[2018-05-23] MEDS: QUEtiapine 25 MG TABLET PO SCH ×2 (09:27→21:15)
[2018-05-23] MEDS: FLECAINIDE 50 MG TABLET PO SCH ×2 (09:27→21:14)
[2018-05-23] MEDS: GABAPENTIN 100 MG CAPSULE PO SCH ×2 (09:28→21:14)
[2018-05-23] MEDS: VENLAFAXINE XR 37.5 MG CAPSULE PO SCH (09:28)
[2018-05-23] MEDS: SPIRONOLACTONE 25 MG TABLET PO SCH (09:28)
[2018-05-23] MEDS: PANTOPRAZOLE 40 MG TABLET PO SCH (09:28)
[2018-05-23] MEDS ORDERED: FUROSEMIDE 40 MG/4 ML VIAL IV ONE (15:47)
[2018-05-23] MEDS: WARFARIN 5 MG TABLET PO SCH (18:36)
[2018-05-23] MEDS: oxyCODONE IR 5 MG TABLET PO PRN (19:51)
[2018-05-23] MEDS: MONTELUKAST 10 MG TABLET PO SCH (21:14)
[2018-05-24] MEDS: ALBUTEROL/IPRATROPIUM 3 ML NEB RESP TX SCH ×4 (00:16→19:59)
[2018-05-24] MEDS: MEROPENEM 500 MG in SODIUM CHLORIDE 0.9% 100 ML IV SCH (00:24)
[2018-05-24 06:27] LABS: Basophils # 0.1 10*3/uL (0.0-0.2); Basophils % 0.9 % (0.0-0.8); Eosinophils # 1.6 10*3/uL (0.0-0.87); Eosinophils % 11.4 % (0.00-10.9); Hematocrit 41.1 VOL% (35.7-47.0); Hemoglobin 12.8 GM/DL (12.0-16.0); Immature Granulocytes % 1.3 %; Immature Granulocytes Absolute 0.19 #; Lymphocytes # 1.6 10*3/uL (1.4-4.0); Lymphocytes % 11.6 % (21.3-54.2); Mean Corpuscular HGB Conc 31.1 GM/DL (32-36); Mean Corpuscular Hemoglobin 29 PG (27-34); Monocytes # 1.2 10*3/uL (0.11-0.8); Monocytes % 8.8 % (1.7-12.7); NRBC # 0.04 10*3/uL; Neutrophils # 9.3 10*3/uL (1.4-7.4); Platelet Count 268 T/CUMM (130-400); Red Blood Count 4.42 MC/CUMM (3.8-5.5); Red Cell Distribution Width 18.6 % (9.3-17.3); White Blood Count 14.1 T/CUMM (4-12)
[2018-05-24] MEDS: LEVOTHYROXINE 125 MCG TABLET PO SCH (06:39)
[2018-05-24] MEDS: oxyCODONE IR 5 MG TABLET PO PRN ×2 (06:40→20:46)
[2018-05-24 06:57] LABS: Calcium 7.3 MG/DL (8.5-10.1); Osmolality,Calculated 291.5 MOS/KG (273-304)
[2018-05-24] MEDS: FLECAINIDE 50 MG TABLET PO SCH ×2 (10:22→20:46)
[2018-05-24] MEDS: CYANOCOBALAMIN 500 MCG TABLET PO SCH (10:23)
[2018-05-24] MEDS: SPIRONOLACTONE 25 MG TABLET PO SCH (10:23)
[2018-05-24] MEDS: GABAPENTIN 100 MG CAPSULE PO SCH ×2 (10:23→20:46)
[2018-05-24] MEDS: PANTOPRAZOLE 40 MG TABLET PO SCH (10:23)
[2018-05-24] MEDS: VENLAFAXINE XR 37.5 MG CAPSULE PO SCH (10:23)
[2018-05-24] MEDS: CYANOCOBALAMIN 1000 MCG/1 ML VIAL SUBCUT SCH (10:24)
[2018-05-24] MEDS: QUEtiapine 25 MG TABLET PO SCH ×2 (10:24→20:48)
[2018-05-24 11:12] LABS: INR 19.6; PT Patient Result 185.4 SECS
[2018-05-24] MEDS ORDERED: PHYTONADIONE 5 MG/5 ML ORAL.SYR PO ONE (11:27)
[2018-05-24] MEDS ORDERED: PHYTONADIONE 10 MG/1 ML AMP SUBCUT ONE (12:13)
[2018-05-24 15:04] LABS: Band Neutrophils 3 % (0-10); Eosinophils 3 % (0-10); Lymphocytes 8 % (20-55); Macrocytosis Slight; Nucleated Red Blood Cells 5 (0-5); Platelet Estimate Adequate; Segmented Neutrophils 80 % (50-85); Total Cells Counted 100
[2018-05-24] MEDS: MONTELUKAST 10 MG TABLET PO SCH (20:46)
[2018-05-25] MEDS: ALBUTEROL/IPRATROPIUM 3 ML NEB RESP TX SCH ×4 (00:27→19:19)
[2018-05-25] MEDS: oxyCODONE IR 5 MG TABLET PO PRN ×2 (05:42→15:18)
[2018-05-25] MEDS: LEVOTHYROXINE 125 MCG TABLET PO SCH (06:05)
[2018-05-25 06:55] LABS: INR 1.7; PT Patient Result 17.4 SECS
[2018-05-25 07:16] LABS: Calcium 7.5 MG/DL (8.5-10.1); Osmolality,Calculated 293.7 MOS/KG (273-304); Potassium 4.6 MMOL/L (3.5-5.1)
[2018-05-25] MEDS: SPIRONOLACTONE 25 MG TABLET PO SCH (09:32)
[2018-05-25] MEDS: FLECAINIDE 50 MG TABLET PO SCH ×2 (09:33→20:22)
[2018-05-25] MEDS: PANTOPRAZOLE 40 MG TABLET PO SCH (09:33)
[2018-05-25] MEDS: VENLAFAXINE XR 37.5 MG CAPSULE PO SCH (09:33)
[2018-05-25] MEDS: GABAPENTIN 100 MG CAPSULE PO SCH ×2 (09:33→20:22)
[2018-05-25] MEDS: CYANOCOBALAMIN 500 MCG TABLET PO SCH (09:34)
[2018-05-25] MEDS: QUEtiapine 25 MG TABLET PO SCH (20:22)
[2018-05-25] MEDS: MONTELUKAST 10 MG TABLET PO SCH (20:22)
[2018-05-26] MEDS: ALBUTEROL/IPRATROPIUM 3 ML NEB RESP TX SCH ×4 (00:30→18:58)
[2018-05-26] MEDS: ONDANSETRON 4 MG/2 ML VIAL IV PRN ×2 (04:32→09:10)
[2018-05-26 05:31] LABS: Basophils # 0.2 10*3/uL (0.0-0.2); Basophils % 0.9 % (0.0-0.8); Eosinophils # 1.1 10*3/uL (0.0-0.87); Eosinophils % 5.4 % (0.00-10.9); Hematocrit 37.3 VOL% (35.7-47.0); Hemoglobin 11.6 GM/DL (12.0-16.0); Immature Granulocytes % 2.5 %; Immature Granulocytes Absolute 0.49 #; Lymphocytes # 2.1 10*3/uL (1.4-4.0); Mean Corpuscular HGB Conc 31.1 GM/DL (32-36); Mean Corpuscular Hemoglobin 28 PG (27-34); Mean Corpuscular Volume 91.4 FL (87-102); Mean Platelet Volume 12.5 FL (9.6-12.0); Monocytes # 2.3 10*3/uL (0.11-0.8); Monocytes % 11.9 % (1.7-12.7); NRBC # 0.03 10*3/uL; Neutrophils # 13.2 10*3/uL (1.4-7.4); Neutrophils % 68.3 % (38.7-73.9); Platelet Count 334 T/CUMM (130-400); Red Blood Count 4.08 MC/CUMM (3.8-5.5); Red Cell Distribution Width 18.3 % (9.3-17.3); White Blood Count 19.4 T/CUMM (4-12)
[2018-05-26 05:55] LABS: Calcium 7.1 MG/DL (8.5-10.1)
[2018-05-26 05:56] LABS: Osmolality,Calculated 298.5 MOS/KG (273-304); Potassium 4.1 MMOL/L (3.5-5.1)
[2018-05-26] MEDS: LEVOTHYROXINE 125 MCG TABLET PO SCH (06:14)
[2018-05-26] MEDS: FLECAINIDE 50 MG TABLET PO SCH ×2 (08:34→20:54)
[2018-05-26] MEDS: PANTOPRAZOLE 40 MG TABLET PO SCH (08:34)
[2018-05-26] MEDS: VENLAFAXINE XR 37.5 MG CAPSULE PO SCH (08:34)
[2018-05-26] MEDS: GABAPENTIN 100 MG CAPSULE PO SCH ×2 (08:34→20:54)
[2018-05-26] MEDS: SPIRONOLACTONE 25 MG TABLET PO SCH (08:35)
[2018-05-26] MEDS: CYANOCOBALAMIN 500 MCG TABLET PO SCH (08:35)
[2018-05-26] MEDS: oxyCODONE IR 5 MG TABLET PO PRN ×2 (08:35→16:14)
[2018-05-26] MEDS ORDERED: TUBERCULIN SKIN TEST 0.1 ML SYRINGE INTRADERM ONE (11:00)
[2018-05-26] MEDS ORDERED: SKIN HEALING OINT (AQUAPHOR) 50 GM TUBE TOP PRN (15:06)
[2018-05-26] MEDS: ACYCLOVIR 5% OINT 5 GM TUBE TOP SCH ×3 (15:09→21:00)
[2018-05-26] MEDS: ACYCLOVIR 200 MG CAPSULE PO SCH ×3 (15:09→21:00)
[2018-05-26] MEDS: MONTELUKAST 10 MG TABLET PO SCH (20:54)
[2018-05-26] MEDS: QUEtiapine 25 MG TABLET PO SCH (20:54)
[2018-05-27] MEDS: ALBUTEROL/IPRATROPIUM 3 ML NEB RESP TX SCH ×4 (00:37→19:16)
[2018-05-27] MEDS: ACYCLOVIR 200 MG CAPSULE PO SCH ×5 (06:52→22:58)
[2018-05-27] MEDS: LEVOTHYROXINE 125 MCG TABLET PO SCH (06:52)
[2018-05-27] MEDS: ACYCLOVIR 5% OINT 5 GM TUBE TOP SCH ×5 (06:52→22:58)
[2018-05-27 07:03] LABS: Basophils # 0.2 10*3/uL (0.0-0.2); Basophils % 1.1 % (0.0-0.8); Eosinophils # 0.9 10*3/uL (0.0-0.87); Eosinophils % 5.4 % (0.00-10.9); Hematocrit 36.1 VOL% (35.7-47.0); Hemoglobin 11.6 GM/DL (12.0-16.0); Immature Granulocytes % 1.7 %; Immature Granulocytes Absolute 0.29 #; Lymphocytes # 1.8 10*3/uL (1.4-4.0); Lymphocytes % 10.3 % (21.3-54.2); Mean Corpuscular HGB Conc 32.1 GM/DL (32-36); Mean Corpuscular Hemoglobin 29 PG (27-34); Mean Corpuscular Volume 90.5 FL (87-102); Mean Platelet Volume 12.3 FL (9.6-12.0); Monocytes # 2.5 10*3/uL (0.11-0.8); Monocytes % 14.1 % (1.7-12.7); NRBC # 0.03 10*3/uL; Neutrophils # 11.8 10*3/uL (1.4-7.4); Neutrophils % 67.4 % (38.7-73.9); Platelet Count 375 T/CUMM (130-400); Red Blood Count 3.99 MC/CUMM (3.8-5.5); Red Cell Distribution Width 17.8 % (9.3-17.3); White Blood Count 17.5 T/CUMM (4-12)
[2018-05-27 07:10] LABS: PT Patient Result 10.6 SECS
[2018-05-27 07:22] LABS: Band Neutrophils 4 % (0-10); Eosinophils 3 % (0-10); Giant Platelets Few; Hypochromasia 1+; Lymphocytes 4 % (20-55); Ovalocytes Slight; Platelet Estimate Adequate; Segmented Neutrophils 71 % (50-85); Total Cells Counted 100
[2018-05-27 07:39] LABS: Osmolality,Calculated 299.7 MOS/KG (273-304); Potassium 3.8 MMOL/L (3.5-5.1)
[2018-05-27] MEDS: VENLAFAXINE XR 37.5 MG CAPSULE PO SCH (09:09)
[2018-05-27] MEDS: CYANOCOBALAMIN 500 MCG TABLET PO SCH (09:09)
[2018-05-27] MEDS: FLECAINIDE 50 MG TABLET PO SCH ×2 (09:09→22:36)
[2018-05-27] MEDS: SPIRONOLACTONE 25 MG TABLET PO SCH (09:09)
[2018-05-27] MEDS: GABAPENTIN 100 MG CAPSULE PO SCH ×2 (09:09→22:36)
[2018-05-27] MEDS: PANTOPRAZOLE 40 MG TABLET PO SCH (09:09)
[2018-05-27] MEDS: oxyCODONE IR 5 MG TABLET PO PRN (09:10)
[2018-05-27] MEDS ORDERED: FUROSEMIDE 40 MG/4 ML VIAL IV ONE (16:46)
[2018-05-27] MEDS ORDERED: MORPHINE 4 MG/1 ML VIAL IV PRN (16:46)
[2018-05-27] MEDS ORDERED: ENOXAPARIN 100 MG/ML SYRINGE SUBCUT SCH (17:00)
[2018-05-27 19:46] VITALS: BP 106/42
[2018-05-27] MEDS: QUEtiapine 25 MG TABLET PO SCH (22:36)
[2018-05-27] MEDS: MONTELUKAST 10 MG TABLET PO SCH (22:36)
== END 2018-05-27 21:18 | disposition expired | DRG 291 ==
LOC: EDUNIT# → EDBD → N.ED 18:23 → SUATTDRO 20:51 → N.EDINP 20:51 → N.5E 22:01
PROVIDERS: ADMIT Hospitalist; ATTEND Internal Medicine